=== PATIENT | female | born 1990 | race African-American/Black ===

== ENCOUNTER 2019-11-30 14:31 | Observation (INO) | payer OTHER, SELFPAY ==
--- NOTE | 2019-11-30 14:31 | OBADM ---
This patient, Dotty Ayon, admitted to the OB room OB Post 116 for observation. Patient/family oriented to hospital policies and general routines including ID bracelet, bed and alarms, visiting hours, pain management, procedures, bathroom and other care routines, personal items, smoking policy, room service/diet, and visiting hours. Patient/Family are encouraged to report perceived risks to care and to ask questions if they do not understand what they are told or what they should do.
[2019-11-30 15:08] VITALS: BP 131/70; PULSE 85
[2019-11-30 15:15] VITALS: BP 128/74; PULSE 96
[2019-11-30 15:30] VITALS: TEMP 36.9
[2019-11-30 15:35] VITALS: BMI 27.6
[2019-11-30 15:43] LABS: Add Urine Microscopic? YES; Amorphous Sediment Urine Few; Appearance Urine Cloudy (Clear); Bacteria Urine 3+ /hpf; Bilirubin Urine Negative (Negative); Blood Urine Negative (Negative); Color Urine Yellow (Yellow); Glucose Urine UA Negative (Negative); Ketones Urine Negative (Negative); Leukocyte Esterase Ur Trace LEU/UL (NEGATIVE); Mucus Urine Rare /lpf; Nitrate Urine Negative (Negative); Protein Urine 1+ mg/dL (Negative); RBC Urine 0-2 /hpf (0-2); Squamous Epithelial Cell Urine Many /hpf (Few)
--- NOTE | 2019-11-30 16:00 | PCDIET ---
called Luiza Bueno CNM and notified pt admission for cramping. UA result given, discharge order received with Rx NADER Willett before discharge.
--- NOTE | 2020-01-08 07:47 | PM.OBTRLD ---
OB - Triage/Final Diagnosis Evaluation Laboratory results: Laboratory Tests 11/30/19 15:12 Urine Color Yellow Urine Appearance Cloudy H Urine pH 6.0 Ur Specific [place] 1.020 Urine Protein 1+ H Urine Glucose (UA) Negative Urine Ketones Negative Ur Blood (Man) Negative Urine Nitrate Negative Urine Bilirubin Negative Urine Urobilinogen 4.0 H Ur Leukocyte Esterase Trace H Urine RBC 0-2 Urine WBC 10-15 H Ur Squamous Epith Cells Many H Amorphous Sediment Few H Urine Bacteria 3+ H Urine Mucus Rare Final Diagnosis (1) False labor: Code(s): O47.9 - False labor, unspecified Status: Acute
== END 2019-11-30 16:50 | disposition home or self-care (01) ==
PROVIDERS: Admitting Provider Obstetrics & Gynecology; PCP Internal Medicine Infectious Disease; Visit Provider Obstetrics & Gynecology
DX: R10.9 Unspecified abdominal pain (principal); O26.893 Other specified pregnancy related conditions, third trimester; Z3A.31 31 weeks gestation of pregnancy
CPT/HCPCS: 81001; 87086; 87088; G0378; G0379

== ENCOUNTER 2019-12-14 10:06 | Observation (INO) | payer OTHER, SELFPAY ==
[2019-12-14] VITALS (16 sets, daily range): BP systolic 114–116; BP diastolic 70–73; PULSE 70–122; TEMP 37; O2SAT 83–100; BMI 28.3
--- NOTE | 2019-12-14 10:06 | OBADM ---
This patient, Dotty Ayon, admitted to the OB room OB Post 117 for observation. Patient/family oriented to hospital policies and general routines including ID bracelet, bed and alarms, visiting hours, pain management, procedures, bathroom and other care routines, personal items, smoking policy, room service/diet, and visiting hours. Patient/Family are encouraged to report perceived risks to care and to ask questions if they do not understand what they are told or what they should do.
[2019-12-14 11:13] LABS: Add Urine Microscopic? YES; Appearance Urine Cloudy (Clear); Bacteria Urine 1+ /hpf; Bilirubin Urine Negative (Negative); Blood Urine Negative (Negative); Color Urine Yellow (Yellow); Glucose Urine UA Negative (Negative); Ketones Urine Negative (Negative); Leukocyte Esterase Ur Trace LEU/UL (NEGATIVE); Mucus Urine Rare /lpf; Nitrate Urine Negative (Negative); Protein Urine 1+ mg/dL (Negative); RBC Urine 0-2 /hpf (0-2); Specific Grav Ur 1.018 (1.001-1.035); Squamous Epithelial Cell Urine Many /hpf (Few)
--- NOTE | 2019-12-21 11:23 | P.PNOB_ITS ---
OB - Triage/Final Diagnosis Visit Information Reason for evaluation: threatened labor Evaluation Laboratory results: Laboratory Tests 12/14/19 11:00 Urine Color Yellow Urine Appearance Cloudy H Urine pH 6.0 Ur Specific [place] 1.018 Urine Protein 1+ H Urine Glucose (UA) Negative Urine Ketones Negative Ur Blood (Man) Negative Urine Nitrate Negative Urine Bilirubin Negative Urine Urobilinogen 4.0 H Ur Leukocyte Esterase Trace H Urine RBC 0-2 Urine WBC 7-9 H Ur Squamous Epith Cells Many H Urine Bacteria 1+ H Urine Mucus Rare
== END 2019-12-14 12:35 | disposition home or self-care (01) ==
PROVIDERS: Admitting Provider Obstetrics & Gynecology; PCP Internal Medicine Infectious Disease; Visit Provider Obstetrics & Gynecology
DX: O47.03 False labor before 37 completed weeks of gestation, third trimester (principal); Z3A.33 33 weeks gestation of pregnancy
CPT/HCPCS: 81001; 87086; G0378; G0379

== ENCOUNTER 2020-01-16 11:34 | Outpatient (CLI) | payer OTHER, SELFPAY ==
[2020-01-16 13:00] VITALS: BP 127/75; PULSE 90
== END 2020-01-16 13:00 | disposition home or self-care (01) ==
LOC: ANHOBOP 12:23 → ANHLDR 12:23
PROVIDERS: PCP Internal Medicine Infectious Disease; Visit Provider Obstetrics & Gynecology
DX: O42.90 Premature rupture of membranes, unspecified as to length of time between rupture and onset of labor, unspecified weeks of gestation (principal); Z3A.00 Weeks of gestation of pregnancy not specified
CPT/HCPCS: 59025; 84112; 99199

== ENCOUNTER 2020-01-20 18:08 | Observation (INO) | payer OTHER, SELFPAY ==
[2020-01-20 18:45] VITALS: BP 127/76; PULSE 96
--- NOTE | 2020-01-20 23:41 | OBADM ---
This patient, Dotty Amanda Ayon, admitted to the OB room Labor/Delivery/Recovery 104 for observation. Patient/family oriented to hospital policies and general routines including ID bracelet, bed and alarms, visiting hours, pain management, procedures, bathroom and other care routines, personal items, smoking policy, room service/diet, and visiting hours. Patient/Family are encouraged to report perceived risks to care and to ask questions if they do not understand what they are told or what they should do.
--- NOTE | 2020-02-03 14:44 | PM.OBDSVD ---
DS: Admitting Diagnosis Admitting Diagnosis Admitting Diagnosis: Term Spontaneous onset of labor DS: Discharge Diagnosis Discharge Diagnosis (1) Syphilis affecting , antepartum: Code(s): O98.119 - Syphilis complicating , unspecified trimester Status: Acute (2) GBS carrier: Code(s): Z22.330 - Carrier of Group B streptococcus Status: Acute (3) Spontaneous onset of labor: Status: Acute (4) Term delivered: Code(s): O80 - Encounter for full-term uncomplicated delivery Status: Acute (5) Anemia: Code(s): D64.9 - Anemia, unspecified Status: Acute OB - DS: Summary Hospital Course Time spent discussing smoking cessation with patient: 3 to 10 minutes OB Procedures : Ultrasound OB Procedures Intrapartum: Spontaneous Vag Delivery OB Procedures: : None Peripartum Data Delivery Method: Natural Vaginal Laceration description: Perineal - 2nd Degree Episiotomy description: Midline complications: none 1: Gender: Female Disposition of : home Status at Discharge Functional status at discharge: independent ambulation Overall status at discharge: patient is back to baseline Time Spent with Patient Time attestation: Total time spent providing and/or coordinating discharge services: Time spent: Less than 30 minutes Exam Const: General: comfortable, no acute distress, alert and awake Limitations: no limitations Chest: Breast/axilla inspection: normal inspection of the breasts Resp: Effort & Inspection: normal respiratory effort Cardio: Rate: regular rate GI: GI Palp: Yes Soft to palpation Auscultation: normal bowel sounds : General: Yes bladder normal to inspection Psych: Appearance: grossly normal Mental Status: mental status grossly normal Affect: normal affect Attitude: cooperative Thought content: Yes Normal thought content present Judgement: Good judgement present (Psych) Discharge Plan Discharge Attending physician on discharge: Jared Odonnell Discharging Clinician: Jared Odonnell Anticipated Discharge Date/Time: 01/20/20 18:50 Patient Disposition: Home, Self-Care Activity: may shower, may drive after 2 weeks and as tolerated Diet: as tolerated and regular Wound Care Instructions: follow printed instructions Discharge Instructions: OB ANTEPARTUM DISCHARGE INSTRUCTIONS This information is given to help you properly care for yourself at home after your discharge from the hospital. Follow these instructions until your doctor tells you otherwise. DIET: Eat Three Well Balanced Meals per Day Drink at Least Eight 8-Ounce Glasses of Caffeine-Free Beverages Daily Additional Diet Instructions: ACTIVITY: As Tolerated Additional Activity Instructions: RETURN TO LABOR AND DELIVERY IF YOU HAVE: Any Change In Baby's Normal Movement Pattern Any Leakage of Fluid Contractions 3-5 Minutes Apart with Increasing Intensity Vaginal Bleeding Additional Reasons to Return to Labor and Delivery: Contractions may feel like abdominal pain, tightening, cramping, pressure, back ache, or thigh ache. 24 Hour Urine Collection: Continue 24 hour urine collection until at . When collection is completed, return specimen to the [facility]. See handout for 24 hour urine collection. OTHER INSTRUCTIONS: FOLLOW-UP CARE: Keep Next Scheduled Appointment To see in/on Valuables released to patient or family? N/A Medications from home returned to patient? N/A I Acknowledge Receipt of and Understand the Above Instructions IF YOU HAVE ANY QUESTIONS REGARDING THESE INSTRUCTIONS, PLEASE CALL [phone]. IF PROBLEMS ARISE, CALL YOUR PROVIDER. IF EMERGENCY CARE IS NEEDED, [facility] AVAILABLE 24 HOURS A DAY. Patient Instructions: Perineal Care (GEN) Stand Alone Forms: General
== END 2020-01-20 19:00 | disposition home or self-care (01) ==
PROVIDERS: Admitting Provider Obstetrics & Gynecology; PCP Internal Medicine Infectious Disease; Visit Provider Obstetrics & Gynecology
DX: O98.119 Syphilis complicating pregnancy, unspecified trimester (principal); O99.019 Anemia complicating pregnancy, unspecified trimester; D64.9 Anemia, unspecified; Z22.330 Carrier of Group B streptococcus; Z3A.00 Weeks of gestation of pregnancy not specified
CPT/HCPCS: G0378; G0379

== ENCOUNTER 2020-01-21 22:50 | Inpatient (IN) | payer OTHER, SELFPAY ==
[2020-01-22] VITALS (102 sets, daily range): BP systolic 114–172; BP diastolic 60–120; PULSE 79–120; RESP 18–20; TEMP 36.8–37.7; O2SAT 97–100; BMI 30.2
[2020-01-22] MEDS: AMPICILLIN 2 GM/NS 100 ML 2 GM/100 ML BAG IVPB (02:35)
[2020-01-22] MEDS: LACTATED RINGERS 1,000 ML 125 ML IV CONT (02:37)
[2020-01-22 02:46] LABS: Basophils Percent Auto 0.2 % (0.2-1.2); Eosinophils Percent Auto 0.2 % (0-4.4); Hematocrit 30.9 % (37.0-47.0); Hemoglobin 8.7 g/dL (12.0-15.0); Immature Granulocyte Absolute 0.12 K/mm3 (0.00-0.031); Immature Granulocyte Percent A 1.1 % (0-0.5); Immature Platelet Fraction Pct 9.6 % (0.9-11.2); Lymphocytes Absolute Auto 1.18 K/mm3 (0.9-3.2); Lymphocytes Percent Auto 11.1 % (18.3-44.2); Mean Corpuscular HGB Conc 28.2 g/dl (32-36); Mean Corpuscular Hemoglobin 20.6 pg (26-34); Mean Platelet Volume 11.8 fl (7.4-10.4); Monocytes Absolute Auto 0.6 K/mm3 (0.1-0.6); Monocytes Percent Auto 5.9 % (2.6-8.5); Neutrophils Absolute Auto 8.6 K/mm3 (1.3-6.7); Neutrophils Percent Auto 81.5 % (45.5-73.1); Nucleated Red Blood Cells Perc 0.4 % (0.0-0.2); Platelet Count Result 263 k/mm3 (150-375); Red Blood Count 4.23 M/mm3 (4.2-5.4); Red Cell Distribution Width 19.2 % (11.5-14.5); White Blood Count 10.6 K/mm3 (4.5-10.0)
[2020-01-22 03:02] LABS: Amphetamine Screen Urine Negative (Negative); Barbiturate Screen Urine Negative (Negative); Benzodiazepines Screen Urine Negative (Negative); Cannabinoid Screen Urine Negative (Negative); Cocaine Screen Urine Negative (Negative); Methadone Screen Urine Negative (Negative); Opiate Screen Urine Negative (Negative); Phencyclidine Screen Urine Negative (Negative)
[2020-01-22 03:06] LABS: Hypochromasia 2+ (NORMAL); Large Platelets Present; Platelet Estimate Adequate (Adequate)
--- NOTE | 2020-01-22 03:30 | LDADM ---
This patient, Dotty Ayon, was admitted to Labor/Delivery/Recovery 104 on 01/21/20 at 22:50. Plans for labor, pain management and were discussed with patient. Patient/family oriented to hospital policies and general routines including ID bracelet, bed and alarms, visiting hours, pain management, procedures, bathroom and other care routines, personal items, smoking policy, room service/diet and guest tray routines, security routines, and visiting hours. Patient/Family are encouraged to report perceived risks to care and to ask questions if they do not understand what they are told or what they should do. See OBIX for further documentation.
[2020-01-22] MEDS: AMPICILLIN 1 GM/NS 50 ML 1 GM/50 ML BAG IVPB ×2 (06:37→10:37)
--- NOTE | 2020-01-22 07:01 | HP_ITS ---
DATE OF SERVICE: TIME: 7 a.m. REASON FOR ADMISSION: For induction of labor. HISTORY OF PRESENT ILLNESS: The patient is a 29-year-old female who is 1, para 0 who is currently 39 weeks with first trimester ultrasound being under the care given by Jared Odonnell MD, [facility], [facility] in [place], [place]. otherwise uncomplicated, being admitted for induction of labor with oxytocin. Understands her condition, procedure, and risks and agrees to proceed. PAST MEDICAL HISTORY: ALLERGIES: SHE HAS ALLERGIES TO FLUCONAZOLE. MEDICATIONS: Include famotidine, ferrous gluconate, folic acid, vitamins. VACCINES RECEIVED: Tdap on 11/11/2019, influenza on 04/30/2019 was declined, HPV vaccination series completed. MEDICAL ILLNESSES: Include anemia, abnormal 1-hour glucose, normal 3-hour glucose tolerance test, syphilis was treated and has had negative VDRLs, subchorionic hematoma resolved first trimester, group B strep carrier, bacterial vaginosis and vaginal candidiasis. FAMILY HISTORY: Lymphangitis and hypotensive disease in her father and mother respectively. SOCIAL HISTORY: Nonsmoker. No alcohol. No illicit drug use. 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 Single. Has used marijuana in the past. SURGICAL HISTORY: Negative. MOTHER BABY RN HISTORY: Remarkable for abnormal Pap smear with HPV positive and mild dysplasia in 2014, history of STDs including the syphilis treated, treatment started in July, VDRL negative third trimester. REVIEW OF SYSTEMS: Negative. PHYSICAL EXAMINATION: VITAL SIGNS: Height is 5 feet 5 inches, weight 173, BMI 28.8, blood pressure 122/74, pulse 76, respirations 16, temperature 98. HEAD AND NECK: Normal. AIRWAY: Normal. PULMONARY: Normal. BREASTS: Normal. CARDIOVASCULAR: Normal. ABDOMEN: Gravid, fundus 40 cm. EXTREMITIES: Normal. NEUROLOGIC: Normal. PSYCHIATRIC: Stable. PELVIC: heart tones 151, category 1, cervix is closed, 80%, -2, vertex, soft. LABORATORY DATA: Blood type AB positive. Antibody screen negative. Hemoglobin 11, hematocrit 33, platelets 261,000. VDRL nonreactive. Fluorescent treponemal antibodies positive. Hepatitis B surface antigen negative. HIV negative. Chlamydia, gonorrhea, trichomonas negative. Varicella immune, rubella immune. Hemoglobin electrophoresis normal. HPV negative. Genetic screening negative. Ultrasounds normal. Negative normal. Group B strep recent culture negative. Group B strep positive in urine. Ultrasound negative anomaly screening. Estimated weight 3100 g. IMPRESSION: Intrauterine at 39 weeks, maternal desire for induction. Group B strep carrier. Syphilis, treated; recent VDRL negative, history of human papillomavirus, now negative. PLAN: Admit routine vaginal delivery protocol, section for maternal or indications, induction with Pitocin per protocol. Explained her condition, procedure, and risks. She understands, accepts and agrees to proceed. D I MT: Franca BAIG
--- NOTE | 2020-01-22 07:55 | WPDANESEPPF ---
Anes - Initial Pre Proc Eval Date/Time: 01/22/20 07:55 Surgeon: Jared Odonnell MD Pre Op Diagnosis: Contractions Patient Data Age: 29 Gender: F Height: 1.63 m Weight: 80 kg Last Vital Signs Temp 37.6 C H 01/22/20 06:42 Pulse 93 01/22/20 07:51 BP 125/82 01/22/20 07:51 Pulse Ox 100 01/22/20 07:52 Allergies Allergy/AdvReac Type Severity Reaction Status Date / Time fluconazole Allergy Hives Verified 11/30/19 16:16 Home Medications Medication Instructions Recorded Confirmed Type PNV cmb#95-ferrous fumarate-FA 1 tablet PO DAILY 01/09/20 01/20/20 History [] Laboratory Tests 01/22/20 01/22/20 01/22/20 01:48 02:31 02:31 WBC 10.6 K/mm3 H K/mm3 (4.5-10.0) RBC 4.23 M/mm3 M/mm3 (4.2-5.4) Hgb 8.7 g/dL L g/dL (12.0-15.0) Hct 30.9 % L % (37.0-47.0) MCV 73.0 fl L fl (80-100) MCH 20.6 pg L pg (26-34) MCHC 28.2 g/dl L g/dl (32-36) RDW 19.2 % H % (11.5-14.5) Plt Count 263 k/mm3 k/mm3 (150-375) MPV 11.8 fl H fl (7.4-10.4) Immature Gran % (Auto) 1.1 % H % (0-0.5) Neut % (Auto) 81.5 % H % (45.5-73.1) Lymph % (Auto) 11.1 % L % (18.3-44.2) [facility] [place] % (Auto) 5.9 % % (2.6-8.5) Eos % (Auto) 0.2 % % (0-4.4) Baso % (Auto) 0.2 % % (0.2-1.2) Lymph # (Auto) 1.18 K/mm3 K/mm3 (0.9-3.2) [facility] # (Auto) 0.6 K/mm3 K/mm3 (0.1-0.6) Eos # (Auto) 0.0 K/mm3 K/mm3 (0-0.3) Baso # (Auto) 0.0 K/mm3 K/mm3 (0.0-0.1) Abs Immat Gran (auto) 0.12 K/mm3 H K/mm3 (0.00-0.031) Absolute Neuts (auto) 8.6 K/mm3 H K/mm3 (1.3-6.7) Absolute Nucleated RBC 0.0 K/mm3 K/mm3 (0.0-0.012) Nucleated RBC % 0.4 % H % (0.0-0.2) Platelet Estimate Adequate (Adequate) Large Platelets Present % Immature Plt Fraction 9.6 % % (0.9-11.2) Hypochromasia 2+ (NORMAL) Urine Opiates Screen Urine Methadone Screen Ur Barbiturates Screen Ur Phencyclidine Scrn Ur Amphetamine Screen U Benzodiazepines Scrn Urine Cocaine Screen U Cannabinoids Screen RPR Pending Blood Type AB Positive Antibody Screen Negative 01/22/20 02:31 WBC RBC Hgb Hct MCV MCH MCHC RDW Plt Count MPV Immature Gran % (Auto) Neut % (Auto) Lymph % (Auto) [facility] % (Auto) Eos % (Auto) Baso % (Auto) Lymph # (Auto) [facility] # (Auto) Eos # (Auto) Baso # (Auto) Abs Immat Gran (auto) Absolute Neuts (auto) Absolute Nucleated RBC Nucleated RBC % Platelet Estimate Large Platelets % Immature Plt Fraction Hypochromasia Urine Opiates Screen Negative (Negative) Urine Methadone Screen Negative (Negative) Ur Barbiturates Screen Negative (Negative) Ur Phencyclidine Scrn Negative (Negative) Ur Amphetamine Screen Negative (Negative) U Benzodiazepines Scrn Negative (Negative) Urine Cocaine Screen Negative (Negative) U Cannabinoids Screen Negative (Negative) RPR Blood Type Antibody Screen Patient hx anesthesia problems: none Family hx anesthesia problems: none PMFSH Past Medical History Medical History (Updated 01/22/20 @ 07:56 by Dinesh Montaño MD) Anemia Social History Social History Smoking status: Never smoker Second hand tobacco smoke exposure: No Substance use: never Gender identity (if verbalized by the patient): Female Spiritual care concerns: No Anes - Eval Final PreProcedure Day of Procedure 01/22/20 07:55 Patient weight: obese Heart: regular rate and rhyt
--- NOTE | 2020-01-22 08:51 | PM.OBPNLAB ---
Pain Control Date/time seen: 01/22/20 08:51 Pain control: epidural Pelvic Exam Dilation (cm): 4 Effacement (%): 100 station: -2 Amniotic membrane status: Intact Contractions Monitor mode: External Contraction frequency: 5 Contraction duration: 45 Contraction pattern: Regular Contraction phase: Resting Contraction intensity: Strong/Firm Status status: Category l Assessment and Plan Assessment: active labor Plan: continuous present management
[2020-01-22] MEDS: OXYTOCIN 30 UNITS/NS 500 ML 30 UNITS/500 ML BAG 4 UNITS IV CONT (09:30)
--- NOTE | 2020-01-22 10:28 | PM.OBPNLAB ---
Pain Control Date/time seen: 01/22/20 10:28 Pain control: tolerating well and epidural Pelvic Exam Dilation (cm): 5 Effacement (%): 100 station: -2 Amniotic membrane status: Intact Contractions Monitor mode: External Contraction frequency: 3 Contraction duration: 45 Contraction pattern: Regular Contraction phase: Resting Contraction intensity: Strong/Firm Status status: Category l Assessment and Plan Pitocin rate (mU/min): 1 Assessment: active labor Plan: continuous present management
--- NOTE | 2020-01-22 10:39 | PM.OBPNLAB ---
Pain Control Date/time seen: 01/22/20 10:39 Pain control: epidural Pelvic Exam Dilation (cm): 5 Effacement (%): 100 station: -2 Amniotic membrane status: Ruptured (arom) Contractions Monitor mode: External Contraction frequency: 3 Contraction pattern: Regular Contraction phase: Resting Contraction intensity: Strong/Firm Status status: Category l Assessment and Plan Assessment: active labor Plan: continuous present management and begin patient augmentation
[2020-01-22 10:52] LABS: Rapid Plasma Reagin Non-Reactive (NonReactive)
--- NOTE | 2020-01-22 12:20 | PM.OBPNLAB ---
Pain Control Date/time seen: 01/22/20 11:59 Pain control: tolerating well and epidural Pelvic Exam Dilation (cm): 10 Effacement (%): 100 station: +2 Amniotic membrane status: Ruptured (arom) Contractions Monitor mode: External Contraction frequency: 3 Contraction pattern: Regular Contraction phase: Resting Contraction intensity: Strong/Firm Status status: Category l Assessment and Plan Pitocin rate (mU/min): 1 Assessment: active labor and other (complete stage 1) Plan: continuous present management and other (deliver now)
--- NOTE | 2020-01-22 12:21 | PM.OBPRVD ---
OB - Delivery Note Procedure Delivery date: 01/22/20 Procedure: NSVVD Intrapartal events: None Delivery augmentation: rupture of membranes Delivery monitor: external FHT Route of delivery: Episiotomy description: None Laceration description: None Specimen: Yes (placenta) Estimated blood loss (mL): 150 Anesthesia type: Epidural Disposition: floor Complications: none [place] Baby Date of : 01/22/20 Time of : 12:09 Weeks of gestation at delivery: 39 gender: Female presentation: vertex position: Left Occiput Anterior Placenta delivery description: Spontaneous, Expressed and Normal Configuration cord vessel description: 3 Vessels score one minute: 8 score five minutes: 9
[2020-01-22] MEDS: OXYTOCIN 30 UNITS/NS 500 ML 30 UNITS/500 ML BAG 125 UNITS IV CONT (12:51)
[2020-01-22] MEDS: IBUPROFEN 600 MG TABLET PO (14:00)
--- NOTE | 2020-01-22 14:06 | PM.OBDSVD ---
DS: Discharge Diagnosis Discharge Diagnosis (1) Term delivered: Code(s): O80 - Encounter for full-term uncomplicated delivery Status: Acute (2) Spontaneous onset of labor: Status: Acute (3) GBS carrier: Code(s): Z22.330 - Carrier of Group B streptococcus Status: Acute (4) Syphilis affecting , antepartum: Code(s): O98.119 - Syphilis complicating , unspecified trimester Status: Acute OB - DS: Summary OB Procedures : Ultrasound OB Procedures Intrapartum: Spontaneous Vag Delivery OB Procedures: : None Time Spent with Patient Time attestation: Total time spent providing and/or coordinating discharge services: Exam Const: General: comfortable Limitations: no limitations Chest: Breast/axilla inspection: normal inspection of the breasts Resp: Effort & Inspection: normal respiratory effort Cardio: Rate: regular rate GI: GI Palp: Yes Soft to palpation : General: Yes bladder normal to inspection Psych: Appearance: grossly normal Mental Status: mental status grossly normal Affect: normal affect Attitude: cooperative Thought content: Yes Normal thought content present DS: Data Data Completed and Pending Pending studies at discharge: Pending at discharge 01/22/20 12:14 Surgical [PTH] Routine Labs on day of discharge: Labs from last 24 hours 01/22/20 01/22/20 01/22/20 02:31 02:31 02:31 WBC 10.6 H RBC 4.23 Hgb 8.7 L Hct 30.9 L MCV 73.0 L MCH 20.6 L MCHC 28.2 L RDW 19.2 H Plt Count 263 MPV 11.8 H Immature Gran % (Auto) 1.1 H Neut % (Auto) 81.5 H Lymph % (Auto) 11.1 L [place] % (Auto) 5.9 Eos % (Auto) 0.2 Baso % (Auto) 0.2 Lymph # (Auto) 1.18 [place] # (Auto) 0.6 Eos # (Auto) 0.0 Baso # (Auto) 0.0 Abs Immat Gran (auto) 0.12 H Absolute Neuts (auto) 8.6 H Absolute Nucleated RBC 0.0 Nucleated RBC % 0.4 H Platelet Estimate Adequate Large Platelets Present % Immature Plt Fraction 9.6 Hypochromasia 2+ Urine Opiates Screen Negative Urine Methadone Screen Negative Ur Barbiturates Screen Negative Ur Phencyclidine Scrn Negative Ur Amphetamine Screen Negative U Benzodiazepines Scrn Negative Urine Cocaine Screen Negative U Cannabinoids Screen Negative RPR Blood Type AB Positive Antibody Screen Negative 01/22/20 01:48 WBC RBC Hgb Hct MCV MCH MCHC RDW Plt Count MPV Immature Gran % (Auto) Neut % (Auto) Lymph % (Auto) [place] % (Auto) Eos % (Auto) Baso % (Auto) Lymph # (Auto) [place] # (Auto) Eos # (Auto) Baso # (Auto) Abs Immat Gran (auto) Absolute Neuts (auto) Absolute Nucleated RBC Nucleated RBC % Platelet Estimate Large Platelets % Immature Plt Fraction Hypochromasia Urine Opiates Screen Urine Methadone Screen Ur Barbiturates Screen Ur Phencyclidine Scrn Ur Amphetamine Screen U Benzodiazepines Scrn Urine Cocaine Screen U Cannabinoids Screen RPR Non-reactive Blood Type Antibody Screen Discharge Plan Discharge Attending physician on discharge: Ronna Wick Consulting providers: Dinesh Montaño Discharging Clinician: Ronna Wick Anticipated Discharge Date/Time: 01/23/20 11:29 Patient Disposition: Home, Self-Care Activity: pelvic rest Diet: as tolerated and regular Discharge Instructions: Education: Mom and Baby Guide Given to: Mother Follow-Up: Call your delivering provider's office for an appointment to be seen. Mom and baby should come to the [facility] for the follow-up appointment. Appointment Date/Time: January 25, 2020 at 8:00 am What to expect at your follow-up visit: Physical Assessment Call [phone] if you are unable to keep your appointment time. BREAST CARE: 1. Wear a snug supportive bra. 2. For engorgement discomfort: Bottle Feeding: A. May apply ice p
[2020-01-22 14:33] LABS: Alanine Aminotransferase 11 U/L (4-35); Albumin Level 3.1 g/dL (3.5-5.1); Alkaline Phosphatase 148 U/L (38-126); Anion Gap 9.5 mmol/L (7-16); Aspartate Amino Transferase 22 U/L (14-36); Bilirubin,Total 0.7 mg/dL (0.2-1.3); Blood Urea Nitrogen 4 mg/dL (7-17); Calcium 8.4 mg/dL (8.4-10.2); Carbon Dioxide 21 mmol/L (22-30); Chloride 105 mmol/L (98-107); Estimated CRCL calculation 143 ml/min; Estimated Glomerular Filt Rate > 60; Glucose 102 mg/dL (65-105); Potassium 3.5 mmol/L (3.4-5.0); Sodium 132 mmol/L (137-145); Uric Acid 4.1 mg/dL (2.5-7.5)
--- NOTE | 2020-01-22 15:49 | OBPPTRN ---
Patient transferred to post room # 278 via wheelchair. Oriented to unit, room, information board, rooming in, admission packet and security measures. Patient verbalizes understanding.
[2020-01-22] MEDS: ACETAMINOPHEN 325 MG TABLET 650 MG PO (17:09)
[2020-01-22] MEDS: DOCUSATE SODIUM 100 MG CAPSULE PO (17:13)
[2020-01-22] MEDS: POLYSACCHARIDE IRON COMPLEX 150 MG CAPSULE PO (17:13)
[2020-01-23] MEDS: IBUPROFEN 600 MG TABLET PO ×2 (03:32→09:18)
[2020-01-23 05:12] LABS: Hematocrit 28.7 % (37.0-47.0)
[2020-01-23 07:50] VITALS: BP 114/71; PULSE 79; RESP 18; TEMP 37.1
--- NOTE | 2020-01-23 08:54 | OP_ITS ---
DATE OF PROCEDURE: 01/22/2020 PREOPERATIVE DIAGNOSIS: Intrauterine at 39 and 3/7th weeks, spontaneous onset of labor, GBS positive, history of anemia, syphilis affecting with normal negative VDRL. POSTOPERATIVE DIAGNOSIS: Intrauterine at 39 and 3/7th weeks, spontaneous onset of labor, GBS positive, history of anemia, syphilis affecting with normal negative VDRL, delivered viable female infant. ANESTHESIA: Epidural. BLOOD LOSS: 100. FLUIDS: 1000. No [place] removed prior to delivery. COUNTS: Correct. COMPLICATIONS: None. SPECIMEN TO PATHOLOGY: Placenta, cord gases. FINDINGS: Viable female was delivered at 12:09. Apgars 8 and 9, weight 7 pounds 12 ounce. Placenta intact 3-vessel cord at 12:14. DESCRIPTION OF PROCEDURE: The patient was placed in stirrups, had a normal spontaneous vertex vaginal delivery over an intact perineum. was delivered without difficulty, placed through the maternal abdomen. Cord was clamped and cut. Spontaneous respirations and cry, normal transition. Cord gases and cord blood obtained. Placenta delivered, intact 3-vessel cord with uterus komal well. Pitocin given intravenously. No cuts, tears, or lacerations. The patient tolerated the procedure well. D I MT: Franca
[2020-01-23] MEDS: DOCUSATE SODIUM 100 MG CAPSULE PO (09:17)
[2020-01-23] MEDS: ACETAMINOPHEN 325 MG TABLET 650 MG PO (09:18)
[2020-01-23] MEDS: POLYSACCHARIDE IRON COMPLEX 150 MG CAPSULE PO (09:18)
--- NOTE | 2020-01-23 12:33 | PM.OBPNVD ---
OB - PN: Subj Subjective Date/time seen: 01/23/20 12:33 PPD#1 Pt reports doing well. Her pain is well controlled with the PO pain meds. She is tolerating regular diet w/o N/V. She has voided spontaneously. She is passings flatus. She is ambulating w/o s/sx of anemia. Her bleeding is lessening. She is bottle feeding. She would then like to be discharged home today. No CP, SOB, fever, chills, GRIFFIN, N/V, abdominal pain, dizziness, palpitations. OB - PN: Obj Data Labs CBC & Chem 7: 01/23/20 03:52 01/22/20 14:12 Labs: Laboratory Results - last 24 hr 01/22/20 01/23/20 14:12 03:52 Hgb 8.0 L Hct 28.7 L Sodium 132 L Potassium 3.5 Chloride 105 Carbon Dioxide 21 L Anion Gap 9.5 BUN 4 L Creatinine 0.50 L Estim Creat Clear Calc 143 Estimated GFR > 60 Glucose 102 Uric Acid 4.1 Calcium 8.4 Total Bilirubin 0.7 AST 22 ALT 11 Alkaline Phosphatase 148 H Total Protein 6.0 L Albumin 3.1 L OB - PN A/P Assessment and Plan (1) Term delivered: Code(s): O80 - Encounter for full-term uncomplicated delivery Status: Acute Plan day: 1 Plan: routine care, discharge home (ER return precautions discussed in detail.) and follow up 6 weeks (with Dr. Odonnell) Time Spent With Patient Time: Total time spent is greater than 50% in coordination of care (as documented) at patient's floor/unit and/or counseling patient: Review of Systems Review of Systems: All systems reviewed & are unremarkable except as noted in HPI and below (HPI) Exam Const: General: comfortable, no acute distress, alert and awake Orientation/consciousness: patient oriented x3 Resp: Effort & Inspection: normal respiratory effort Auscultation: clear to auscultation bilaterally Cardio: Rate: regular rate GI: Auscultation: normal bowel sounds Other: mildly distended, soft, nontender : Other: fundus firm at umbilicus; normal lochia Psych: Appearance: grossly normal Affect: normal affect Attitude: cooperative Judgement: Good judgement present (Psych)
--- NOTE | 2020-01-23 14:26 | WPDANLDPN2 ---
Anes-Prog Note L&D Date/Time: 01/23/20 14:26 Comfortable throughout: labor and delivery Neuraxial method: epidural Epidural/Spinal procedure site: clean & non-tender Neuro status: Neuro function grossly intact. Cardiovascular status: normal Respiratory status: normal Airway patency: baseline Mental status: baseline Post-Op hydration status: normal Vital Signs: Last Vital Signs Temp 37.1 C 01/23/20 07:50 Pulse 79 01/23/20 07:50 Resp 18 01/23/20 07:50 BP 114/71 01/23/20 07:50 Pulse Ox 99 01/22/20 21:13 Pain score (VAS): 0/10. Patient resting in bed at time of assessment appears comfortable. Post-procedural complaints: none Patient feedback: Patient satisfied with anesthetic care.
[2020-01-25 08:15] VITALS: BP 134/76; PULSE 67; RESP 14; TEMP 37.1; O2SAT 100
== END 2020-01-23 14:27 | disposition home or self-care (01) | DRG 560 ==
LOC: ANHLDR 01-22 02:40 → ANHOB2 01-23 11:32 → ANHLDR 01-25 20:10 → ANHOB2 02-10 10:22
PROVIDERS: Admitting Provider Obstetrics & Gynecology; PCP Internal Medicine Infectious Disease; Visit Provider Obstetrics & Gynecology
DX: O99.824 Streptococcus B carrier state complicating childbirth (principal); O98.12 Syphilis complicating childbirth; A53.9 Syphilis, unspecified; Z3A.39 39 weeks gestation of pregnancy; Z37.0 Single live birth
CPT/HCPCS: 36415; 80053; 80307; 84550; 85014; 85018; 85025; 85055; 86592; 86850; 86900; 86901; 88307; 99199; A9270; J0290; J2590; J2795; J7120

== ENCOUNTER 2020-09-02 14:05 | Emergency (ER) | payer OTHER, SELFPAY ==
--- NOTE | 2020-09-02 14:14 | ED.SKABFB ---
HPI - Skin/Abscess/Foreign Bdy General Chief complaint: Allergic Reaction Stated complaint: rash, possible allergic reaction Time Seen by Provider: 09/02/20 14:13 History of Present Illness HPI narrative: Pruritic rash to chest and face since this morning. She starte augmentin yesterday for what sounds like GBS. She just recently found out she was . She was previously listed as having a penicillin allergy, but came back nonreactive on recent test. No lip or tongue swelling. No SOB. Related Data Home Medications Medication Instructions Recorded Confirmed PNV cmb#95-ferrous fumarate-FA 1 tablet PO DAILY 01/09/20 01/20/20 [] Allergies Allergy/AdvReac Type Severity Reaction Status Date / Time amoxicillin Allergy Itching Verified 09/02/20 14:23 fluconazole Allergy Hives Verified 09/02/20 14:23 Review of Systems Review of Systems: All systems reviewed & are unremarkable except as noted in HPI and below Constitutional: Constitutional: Denies fever(s) and Denies weakness Cardiovascular: Cardiovascular: Denies chest pain Respiratory: Respiratory: Reports dyspnea PMFSH Past Medical History Medical History Anemia Family History Family History Mother Hypertension Father Lymphoma Social History Social History Smoking status: Never smoker Second hand tobacco smoke exposure: No Substance use: never Gender identity (if verbalized by the patient): Female Spiritual care concerns: No Exam Const: General: healthy appearing, no acute distress and alert Orientation/consciousness: patient oriented x3 HENMT: Mouth: Yes Normal oral and palatal mucosa present Throat: posterior oropharynx normal Resp: Effort & Inspection: normal respiratory effort Auscultation: clear to auscultation bilaterally Cardio: Rate: regular rate Rhythm: regular rhythm Skin: Other: papular rash to chin, neck and chest Neuro: General: patient oriented x3 and CN's II-XI intact bilaterally Speech: normal speech Extrem: General: normal to inspection Course Vital Signs Vital signs: Vital Signs Temperature 37.2 C 09/02/20 14:15 Pulse Rate 78 09/02/20 14:15 Respiratory Rate 16 09/02/20 14:15 Blood Pressure 126/65 09/02/20 14:15 Pulse Oximetry 100 09/02/20 14:15 Temperature 37.2 C 09/02/20 14:15 Pulse Rate 72 09/02/20 14:40 Respiratory Rate 12 09/02/20 14:40 Blood Pressure 121/66 09/02/20 14:40 Pulse Oximetry 99 09/02/20 14:40 MDM - Skin/Abscess/Foreign Bdy MDM Narrative Medical decision making narrative: She seems to be having a mild allergic reaction to augmentin. Dr. Odonnell requested that I changed her to a z-pack Discharge Plan Discharge Clinical Impression: Allergic reaction to amoxicillin/clavulanic acid Patient Disposition: Home, Self-Care Condition: Stable Instructions: Antibiotic Medication Allergy (ED) Prescriptions: New azithromycin 250 mg tablet See Rx Instructions .ROUTE .COMPLEX Qty: 6 RF: 0 prednisone 20 mg tablet 40 mg PO DAILY 3 Days Qty: 6 RF: 0 No Action PNV cmb#95-ferrous fumarate-FA [] 28 mg iron- 800 mcg Tablet 1 tablet PO DAILY RF: 0 acetaminophen [Mapap (acetaminophen)] 325 mg Tablet 650 mg PO Q6H PRN (Reason: Mild Pain (1-3) Or Headache) 10 Days Qty: 30 RF: 0 Dermoplast (with menthol) 20-0.5 % Aerosol 1 spray topical PRN PRN (Reason: Perineal Discomfort) 5 Days Qty: 2 RF: 0 dibucaine 1 % Ointment 1 applic topical PRN PRN (Reason: Hemorrhoids) 5 Days Qty: 2 RF: 0 docusate sodium 100 mg Capsule 100 mg PO BID PRN (Reason: Constipation) 30 Days Qty: 60 RF: 0 ibuprofen 600 mg Tablet 600 mg PO Q6H PRN (Reason: Cramping) 10 Days Qty: 40 RF: 0 Preparation H (Witch Marcia) 50 % Pads, Medicated
[2020-09-02 14:15] VITALS: BP 126/65; PULSE 78; RESP 16; TEMP 37.2; O2SAT 100
[2020-09-02] MEDS: predniSONE 20 MG TABLET 60 MG PO (14:30)
[2020-09-02] MEDS: diphenhydrAMINE HCl CAP 25 MG CAPSULE PO (14:30)
[2020-09-02 14:40] VITALS: BP 121/66; PULSE 72; RESP 12; O2SAT 99
== END 2020-09-02 14:41 | disposition home or self-care (01) ==
PROVIDERS: Emergency Provider Emergency Medicine; PCP Internal Medicine Infectious Disease
DX: O99.711 Diseases of the skin and subcutaneous tissue complicating pregnancy, first trimester (principal); L27.0 Generalized skin eruption due to drugs and medicaments taken internally; O9A.211 Injury, poisoning and certain other consequences of external causes complicating pregnancy, first trimester; T36.0X5A Adverse effect of penicillins, initial encounter; Z3A.00 Weeks of gestation of pregnancy not specified; Z86.2 Personal history of diseases of the blood and blood-forming organs and certain disorders involving the immune mechanism
CPT/HCPCS: 99283; A9270; J7512

== ENCOUNTER 2020-09-14 09:52 | Outpatient (CLI) | payer OTHER, SELFPAY ==
--- NOTE | ~2020-09-14 | US_ITS ---
EXAMINATION: US OB <= 14 weeks fetus DATE: 09/14/2020 10:23 INDICATION: Routine care TECHNIQUE: Real-time pelvic ultrasound utilizing both a transvaginal and transabdominal probe was pe rformed. The interpreting radiologist was not present for the study. COMPARISON: None. FINDINGS: The uterus measures 13.0 x 9.9 x 8.2 cm. There is an intrauterine gestational sac. A yolk sac and fe bing pole are identified. The crown rump length measures 5.3 cm, which correlates with an estimated ge stational age of 12 weeks and 0 days. heart motion is identified measuring 165 beats per minute (bpm) by M-mode Doppler. 1.4 x 1.0 x 1.7 cm anechoic region along the left superior margin of the ge stational sac consistent with small subchorionic hematoma. The right ovary measures 2.3 x 1.4 x 1.8 cm. The left ovary measures 3.2 x 1.3 x 1.4 cm. Vascular michael w identified in both ovaries on color Doppler. There is no free fluid in the pelvis. IMPRESSION: 1. Single living fetus with heart rate of 165 bpm. 2. Gestational age by ultrasound of 12 weeks 0 day(s) +/- 1 week and 1 day with ultrasound estimated date of delivery ([facility]) of 03/29/2021. 3. Small subchorionic hematoma. Reviewed, dictated and finalized at location [facility]. IMPRESSION: 1. Single living fetus with heart rate of 165 bpm. 2. Gestational age by ultrasound of 12 weeks 0 day(s) +/- 1 week and 1 day wit h ultrasound estimated date of delivery ([facility]) of 03/29/2021. 3. Small subchorionic hematoma.
== END 2020-09-14 09:53 | disposition home or self-care (01) ==
PROVIDERS: PCP Internal Medicine Infectious Disease; Visit Provider Obstetrics & Gynecology
DX: Z34.91 Encounter for supervision of normal pregnancy, unspecified, first trimester (principal); Z3A.12 12 weeks gestation of pregnancy
CPT/HCPCS: 76801

== ENCOUNTER 2020-10-14 14:18 | Outpatient (CLI) | payer OTHER, SELFPAY ==
--- NOTE | ~2020-10-14 | US_ITS ---
US OB limited DATE: 10/14/2020 14:58 INDICATION: Subchorionic hematoma TECHNIQUE: Real-time imaging and Doppler analysis COMPARISON: 09/14/2020 obstetrical ultrasound FINDINGS: Live crandall intrauterine gestation, fetus in longitudinal lie, breech presentation. Feta l heart rate of 152 bpm. The uterus is posterofundal. There is a subjectively normal amount of amniotic fluid. No retroplacental hematoma or subchorionic hematoma is detected. IMPRESSION: No retroplacental or subchorionic hemorrhage is noted Reviewed, dictated and finalized at Location [facility]. Reviewed, dictated and finalized at location [facility].
== END 2020-10-14 14:19 | disposition home or self-care (01) ==
PROVIDERS: PCP Internal Medicine Infectious Disease; Visit Provider Obstetrics & Gynecology
DX: O41.8X99 Other specified disorders of amniotic fluid and membranes, unspecified trimester, other fetus (principal); Z3A.00 Weeks of gestation of pregnancy not specified
CPT/HCPCS: 76815

== ENCOUNTER 2020-10-31 17:31 | Emergency (ER) | payer OTHER, SELFPAY ==
[2020-10-31 18:09] VITALS: BP 121/72; PULSE 77; RESP 17; TEMP 36.6; O2SAT 100
--- NOTE | 2020-10-31 18:27 | ECG_ITS ---
Measurements Intervals [place] Rate: 64 P: 68 VT: 220 QRS: 32 QRSD: 94 T: 14 QT: 402 QTc: 417 Interpretive Statements SINUS RHYTHM WITH FIRST DEGREE AV BLOCK BORDERLINE ST-T WAVE ABNORMALITY- INFERIOR LEADS BASELINE WANDER- I, II, III, AVR, AVL, AVF, V3 ABNORMAL ECG Electronically Signed On 10-31-2020 20:38:19 CDT by Reginaldo Sherman D.O.
[2020-10-31] MEDS: SODIUM CHLORIDE 0.9% IV 1,000 ML 999 ML IV CONT (18:40)
[2020-10-31 18:49] LABS: Basophils Percent Auto 0.2 % (0.2-1.2); Eosinophils Absolute Auto 0.1 K/mm3 (0-0.3); Eosinophils Percent Auto 0.8 % (0-4.4); Hemoglobin 10.4 g/dL (12.0-15.0); Immature Granulocyte Absolute 0.05 K/mm3 (0.00-0.031); Immature Granulocyte Percent A 0.5 % (0-0.5); Lymphocytes Absolute Auto 1.85 K/mm3 (0.9-3.2); Lymphocytes Percent Auto 20.1 % (18.3-44.2); Mean Corpuscular HGB Conc 29.7 g/dl (32-36); Mean Corpuscular Volume 77.4 fl (80-100); Mean Platelet Volume 12.2 fl (7.4-10.4); Monocytes Absolute Auto 0.5 K/mm3 (0.1-0.6); Monocytes Percent Auto 5.2 % (2.6-8.5); Neutrophils Absolute Auto 6.7 K/mm3 (1.3-6.7); Neutrophils Percent Auto 73.2 % (45.5-73.1); Platelet Count Result 270 k/mm3 (150-375); Red Blood Count 4.52 M/mm3 (4.2-5.4); White Blood Count 9.2 K/mm3 (4.5-10.0)
--- NOTE | 2020-10-31 19:00 | ED.GENADULT ---
HPI - General Adult General Chief complaint: Dizziness Stated complaint: dizzy/light headed - 18 weeks preg Time Seen by Provider: 10/31/20 18:26 Source: patient History of Present Illness HPI narrative: Patient is a 30 y/o female complaining of mild dizziness since 1:00 PM today. She describes her dizziness as a light headed sensation. She does not feel room spinning. There is no alleviating or exacerbating factor. She denies passing out or having headache. She has no focal weakness or numbness. She is able to ambulate without difficulty. Of note, she is about 18 week prenant. Related Data Home Medications Medication Instructions Recorded Confirmed PNV cmb#95-ferrous fumarate-FA 1 tablet PO DAILY 01/09/20 01/20/20 [] Allergies Allergy/AdvReac Type Severity Reaction Status Date / Time amoxicillin Allergy Itching Verified 09/02/20 14:23 fluconazole Allergy Hives Verified 09/02/20 14:23 Review of Systems Constitutional: Constitutional: Denies chills, Denies fever(s), Denies headache(s) and Denies weakness Eyes: Eyes: Denies blurry vision ENT: Denies headache(s) and Denies neck pain Cardiovascular: Cardiovascular: Denies chest pain and Denies dyspnea Respiratory: Respiratory: Denies cough and Denies dyspnea Gastrointestinal: Gastrointestinal: Denies abdominal pain, Denies diarrhea, Denies nausea and Denies vomiting Genitourinary: Genitourinary: Denies hematuria and Denies dysuria Musculoskeletal: Musculoskeletal: Denies back pain and Denies neck pain Neurologic: Reports dizziness, Denies headache(s) and Denies weakness [facility] Past Medical History Medical History Anemia Family History Family History Mother Hypertension Father Lymphoma Social History Social History Smoking status: Never smoker Second hand tobacco smoke exposure: No Substance use: never Gender identity (if verbalized by the patient): Female Spiritual care concerns: No Exam Const: General: no acute distress and well developed Orientation/consciousness: oriented to person, oriented to place, oriented to time and patient oriented x3 HENMT: Head: normocephalic Ears: external ears normal General nose exam: Normal external nose present Eyes: General: appearance normal, both eyes and all related structures Conjunctivae: conjunctivae normal Neck: Neck: normal visual inspection and full ROM Chest: Chest palpation & inspection: normal inspection of the chest and no tenderness Resp: Effort & Inspection: normal respiratory effort Auscultation: clear to auscultation bilaterally Cardio: Rate: regular rate Rhythm: regular rhythm GI: GI Palp: No abdominal tenderness and Yes Soft to palpation Skin: General skin exam: normal color and turgor normal Neuro: General: oriented to person, oriented to place, oriented to time and patient oriented x3 Cranial nerves: Yes CN's II-XII intact bilaterally Cognition (Neuro): normal cognition Speech: normal speech Motor exam (neuro): 5/5 motor strength present throughout Sensory Exam: normal sensation Coordination: [id number] test normal and [id number] test normal Extrem: General: normal to inspection, full ROM and no pedal edema Psych: Appearance: grossly normal Mental Status: mental status grossly normal Affect: normal affect Course Vital Signs Vital signs: Vital Signs Temperature 36.6 C 10/31/20 18:09 Pulse Rate 77 10/31/20 18:09 Respiratory Rate 17 10/31/20 18:09 Blood Pressure 121/72 10/31/20 18:09 Pulse Oximetry 100 10/31/20 18:09 Temperature 36.6 C 10/31/20 18:09 Pulse Rate 64 10/31/20 22:18 Respiratory Rate 16 10/31/20 22:18 Blood Pressure 126/69 10/31/20 22:18 Pulse Oximetry 98 10/31/20 22:18 Medical Decision Making Vital Signs Vital Signs: V
[2020-10-31 19:02] LABS: Alanine Aminotransferase 10 U/L (4-35); Albumin Level 4.2 g/dL (3.5-5.1); Alkaline Phosphatase 80 U/L (38-126); Anion Gap 7 mmol/L (8-16); Aspartate Amino Transferase 21 U/L (14-36); Bilirubin,Total 0.3 mg/dL (0.2-1.3); Blood Urea Nitrogen 8 mg/dL (7-17); Calcium 9.1 mg/dL (8.4-10.2); Carbon Dioxide 23 mmol/L (22-30); Chloride 106 mmol/L (98-107); Estimated CRCL calculation 106 ml/min; Estimated Glomerular Filt Rate > 60; Glucose 84 mg/dL (65-105); Potassium 3.6 mmol/L (3.4-5.0); Sodium 136 mmol/L (137-145)
[2020-10-31 19:19] LABS: Platelet Estimate Adequate (Adequate)
[2020-10-31 19:20] LABS: Anisocytosis 2+ (NORMAL); Hypochromasia 1+ (NORMAL)
[2020-10-31 20:25] LABS: Add Urine Microscopic? YES; Appearance Urine Cloudy (Clear); Bacteria Urine Trace /hpf; Bilirubin Urine Negative (Negative); Blood Urine Negative (Negative); Color Urine Yellow (Yellow); Glucose Urine UA Negative (Negative); Ketones Urine Negative (Negative); Leukocyte Esterase Ur Trace LEU/UL (Negative); Nitrate Urine Negative (Negative); Protein Urine 1+ mg/dL (Negative); RBC Urine 0-2 /hpf (0-2); Specific Grav Ur 1.018 (1.001-1.035); Squamous Epithelial Cell Urine Moderate /hpf (Few); WBC Urine 0-3 /hpf
[2020-10-31 20:35] VITALS: BP 116/65; PULSE 68; RESP 16; O2SAT 100
[2020-10-31 20:43] VITALS: PULSE 64
[2020-10-31] MEDS: METOCLOPRAMIDE HCL INJ 10 MG/2 ML VIAL IV PUSH (22:02)
[2020-10-31 22:18] VITALS: BP 126/69; PULSE 64; RESP 16; O2SAT 98
== END 2020-10-31 22:19 | disposition home or self-care (01) ==
PROVIDERS: Emergency Provider Emergency Medicine; PCP Internal Medicine Infectious Disease
DX: O26.892 Other specified pregnancy related conditions, second trimester (principal); R42 Dizziness and giddiness; R11.0 Nausea; O99.012 Anemia complicating pregnancy, second trimester; D64.9 Anemia, unspecified; O99.412 Diseases of the circulatory system complicating pregnancy, second trimester; I44.0 Atrioventricular block, first degree; R94.31 Abnormal electrocardiogram [ECG] [EKG]; Z3A.18 18 weeks gestation of pregnancy
CPT/HCPCS: 36415; 80053; 81001; 85025; 93005; 96361; 96374; 99284; J2765; J7030

== ENCOUNTER 2020-11-11 13:07 | Outpatient (CLI) | payer OTHER, SELFPAY ==
--- NOTE | ~2020-11-11 | US_ITS ---
EXAMINATION: US OB limited EXAM DATE: 11/11/2020 13:43 INDICATION: Routine care. 2nd trimester. TECHNIQUE: Pelvic obstetrical transabdominal sonogram was performed by a technologist. There are mu ltiple grayscale and Doppler images available for interpretation. Comparison is made to prior examina tion from 10/14/2020. FINDINGS: There is a single fetus identified in breech presentation with a heart rate of 144 beats pe r minute. The placenta is located in the posterior position. There is no sonographic evidence of ret roplacental hemorrhage identified. The amniotic fluid index is 13.2 centimeters, which is normal. BIOMETRIC DATA: Biparietal diameter (BPD): 4.7 cm ----------------> 20 weeks 1 day. Head circumference (HC): 17.6 cm ----------------> 20 weeks 0 days. Abdominal circumference (AC): 14.8 cm ----------> 20 weeks 1 day. Femur length (FL): 3.2 cm --------------------------> 19 weeks 6 days. These measurements are concordant. HC/AC ratio is 1.18 (The 5th -- 95th percentile range is 1.09-1.25. Estimated weight is 326 g +/- 49 g. This is the 24th percentile when the currently reported cl inical gestation age 20 weeks 3 days, clinical estimated date of delivery ([facility]) 03/28/2021 is used . estimated gestational age based on measurements from this exam is 20 weeks 0 days, with an es timated date of delivery ([facility]) 03/31. IMPRESSION: 1. Single fetus in breech presentation with heart rate 144 beats per minute. 2. Estimated weight of 326 grams, 24th percentile using the currently reported clinical gestat ion age of 20 weeks 3 days, [facility]) 03/28. Reviewed, dictated and finalized at location A. IMPRESSION: 1. Single fetus in breech presentation with heart rate 144 beats per minute. 2. Estimated weight of 326 grams, 24th percentile using the currently re ported clinical gestation age of 20 weeks 3 days, [facility]) 03/28.
== END 2020-11-11 13:08 | disposition home or self-care (01) ==
PROVIDERS: PCP Internal Medicine Infectious Disease; Visit Provider Obstetrics & Gynecology
DX: Z34.92 Encounter for supervision of normal pregnancy, unspecified, second trimester (principal); Z3A.20 20 weeks gestation of pregnancy
CPT/HCPCS: 76815

== ENCOUNTER 2021-03-21 17:31 | Observation (INO) | payer OTHER, SELFPAY ==
[2021-03-21 18:59] VITALS: BMI 28.3
--- NOTE | 2021-03-21 18:59 | LDADM ---
This patient, Dotty Ayon, was admitted to Labor/Delivery/Recovery 119 on 03/21/21 at 17:31. Plans for labor, pain management and were discussed with patient. Patient/family oriented to hospital policies and general routines including ID bracelet, bed and alarms, visiting hours, pain management, procedures, bathroom and other care routines, personal items, smoking policy, room service/diet and guest tray routines, security routines, and visiting hours. Patient/Family are encouraged to report perceived risks to care and to ask questions if they do not understand what they are told or what they should do. See OBIX for further documentation.
--- NOTE | 2021-03-21 22:57 | PC.NURSE ---
1819- cervical exam- closed/posterior 1824- Paged Dr. Nance via answering service 1842- paged Dr. Nance via answering service 1852- Dr. Nance returned page. informed of pt coming in c/o contractions. pt scheduled for primary on Saturday with Dr. Odonnell. cervical exam reviewed. tracing reviewed. irritability noted on monitor with some contractions. orders received to d/c pt home with instructions on when to return to L&D.
--- NOTE | 2021-03-25 09:23 | PM.OBTRLD ---
OB - Triage/Final Diagnosis Visit Information Reason for evaluation: threatened labor Comments/Additional reasons for admission: I have assessed the risk for this patient, Dotty Ayon, and determined that she would benefit from observation care.
== END 2021-03-21 19:10 | disposition home or self-care (01) ==
PROVIDERS: Admitting Provider Obstetrics & Gynecology; PCP Internal Medicine Infectious Disease; Visit Provider Obstetrics & Gynecology
DX: O47.1 False labor at or after 37 completed weeks of gestation (principal); Z3A.39 39 weeks gestation of pregnancy
CPT/HCPCS: G0378; G0379

== ENCOUNTER 2021-03-23 10:44 | Outpatient (RCR) | payer OTHER, SELFPAY ==
[2021-03-16 11:31] VITALS: BP 114/66; PULSE 78
--- NOTE | ~2021-03-23 | US_ITS ---
EXAMINATION: US OB BPP wo non-stress DATE: 03/16/2021 11:28 INDICATION: Small for gestational age during third trimester TECHNIQUE: Real-time pelvic ultrasound was performed. The interpreting radiologist was not present fo r the study. COMPARISON: None. FINDINGS: There is a single living fetus in breech presentation. The placenta is posterior. heart rate is 136 beats per minute (bpm). Biophysical profile performed by the technologist: breathing (30 sec sustained breathing in 30 minutes): 2 out of 2 movement (3 gross body movements in 30 minutes): 2 out of 2 tone (one episode of dcejyci-ymdhohppq-yyfqbro limb movement): 2 out of 2 Amniotic fluid pocket (2 cm): 2 out of 2 Total score: 8 out of 8 IMPRESSION: 1. Single living fetus in breech presentation. 2. Biophysical profile 8 out of 8. Reviewed, dictated and finalized at location A.
--- NOTE | ~2021-03-23 | US_ITS ---
EXAMINATION: US OB BPP wo non-stress EXAM DATE: 03/23/2021 11:45 INDICATION: IUGR. 3rd trimester. TECHNIQUE: Pelvic obstetrical transabdominal sonogram was performed by a technologist. There are mu ltiple grayscale and Doppler images available for interpretation. Comparison is made to prior examina tion from 03/16/2021. FINDINGS: There is a single fetus identified in breech presentation with a heart rate of 152 beats pe r minute. The placenta is located in the fundal position. There is no sonographic evidence of retrop lacental hemorrhage identified. BIOPHYSICAL PROFILE (performed by the technologist) breathing (30 sec sustained breathing in 30 minutes): 2 out of 2 movement (3 gross body movements in 30 minutes): 2 out of 2 tone (one episode of trhfztp-vkiajrvqj-wmsvfxi limb movement): 2 out of 2 Amniotic fluid pocket (2 cm): 2 out of 2 Total score: 8 out of 8 IMPRESSION: 1. Single fetus in breech presentation with heart rate of 152 bpm. 2. Normal biophysical profile score of 8 out of 8. Reviewed, dictated and finalized at location B.
[2021-03-23 11:45] VITALS: BP 121/74; PULSE 90
== END 2021-04-03 07:36 | disposition home or self-care (01) ==
LOC: ANHOBOP 10:44
PROVIDERS: PCP Internal Medicine Infectious Disease; Visit Provider Obstetrics & Gynecology
DX: O36.5930 Maternal care for other known or suspected poor fetal growth, third trimester, not applicable or unspecified (principal); Z3A.38 38 weeks gestation of pregnancy; Z3A.39 39 weeks gestation of pregnancy
CPT/HCPCS: 59025; 76819

== ENCOUNTER 2021-03-24 07:02 | Inpatient (IN) | payer OTHER, SELFPAY ==
--- NOTE | 2021-03-23 17:36 | PM.IMHP ---
H&P: HPI History of Present Illness Date/Time: 03/23/21 17:36 29 y/o AAF 39w2d with PMH of with syphilis, GBS carrier, and persistent malpresentation-BREECH who presents for primary elective low transverse caesarean section under spinal anesthesia. I explained her condition, procedure and risks involved. Including risk of bleeding, infection, injury to bladder, bowel, baby pelvic vessels, DVT, pneumonia, wound infection, UTI, risk of hemorrhage and risk of anesthesia. She understands this and accepts and agrees to proceed. Her care began 08/31/20 and was seen for 12 visits. evaluate with negative NIPT, AFP normal, ultrasound each trimester normal, GTT normal, TDAP given, GBS positive, and last ultrasound on 03/23/21 confirmed with [facility] 04/09. Chief Complaint: elective primary low transverse caesaraen section for malpresentation-BREECH term Review of Systems Review of Systems: All systems reviewed & are unremarkable except as noted in HPI and below Constitutional: Constitutional: Reports no additional constitutional complaints Eyes: Eyes: Reports no additional eye complaints ENT: Reports system reviewed and no additional complaints, except as documented Cardiovascular: Cardiovascular: Reports no additional cardiovascular complaints Respiratory: Respiratory: Reports no additional respiratory complaints Gastrointestinal: Gastrointestinal: Reports no additional gastrointestinal complaints Genitourinary: Genitourinary: Reports no additional female genitourinary complaints Musculoskeletal: Musculoskeletal: Reports no additional musculoskeletal complaints Integumentary/Breasts: Skin/Breast: Reports system reviewed and no additional complaints, except as docu Neurologic: Reports system reviewed and no additional complaints, except as documented Psychiatric: Psychiatric: Reports no additional psychiatric complaints Endocrine: Endocrine: Reports no additional endocrine complaints Hematologic/Lymphatic: Hematologic/Lymphatic: Reports no additional hematologic/lymphatic complaints Allergic/Immunologic: Allergic/Immunologic: Reports no additional allergic/immunologic complaints [facility] Past Medical History Medical History (Updated 03/23/21 @ 17:53 by Jared Odonnell MD) Anemia Bacterial vaginosis Candidiasis COVID-19 affecting in third trimester False labor growth restriction malpresentation GBS carrier Spontaneous onset of labor Syphilis affecting , antepartum Term delivered Family History Family History Mother Hypertension Father Lymphoma Social History Social History (Updated 03/23/21 @ 17:55 by Jared Odonnell MD) Smoking status: Never smoker Second hand tobacco smoke exposure: No Alcohol intake: never Substance use: current Substance use type: marijuana Living arrangements: with family Gender identity (if verbalized by the patient): Female Sexual Orientation (if Verbalized by the Patient): Straight or Heterosexual Spiritual care concerns: No Meds Home Medications and Allergies Home Medications Medication Instructions Recorded Confirmed Type Gummies 1 tablet PO DAILY 03/03/21 03/03/21 History ferrous sulfate 325 mg PO DAILY 03/03/21 03/03/21 History Allergies Allergy/AdvReac Type Severity Reaction Status Date / Time amoxicillin Allergy Itching Verified 09/02/20 14:23 fluconazole Allergy Hives Verified 09/02/20 14:23 Exam Const: General: cooperative, healthy appearing and comfortable Nutritional Appearance: average body habitus Orientation/consciousness: oriented to person, oriented to place and oriented to time Limitations: no limitations HENMT: Head: normal to inspection Eyes: General: appearance normal, both eyes and all related structures Neck: Neck: normal visual inspect
--- NOTE | 2021-03-23 17:41 | PM.IMHP ---
H&P: HPI History of Present Illness Date/Time: 03/23/21 17:41 29 y/o AAF 39w2d with PMH of with syphilis, GBS carrier, and persistent malpresentation-BREECH who presents for primary elective low transverse caesarean section under spinal anesthesia. I explained her condition, procedure and risks involved. Including risk of bleeding, infection, injury to bladder, bowel, baby pelvic vessels, DVT, pneumonia, wound infection, UTI, risk of hemorrhage and risk of anesthesia. She understands this and accepts and agrees to proceed Chief Complaint: elective primary low transverse caeseraen section for malpresentation-BREECH in term PMFSH Past Medical History Medical History Anemia Family History Family History Mother Hypertension Father Lymphoma Social History Social History Smoking status: Never smoker Second hand tobacco smoke exposure: No Substance use: never Gender identity (if verbalized by the patient): Female Spiritual care concerns: No Meds Home Medications and Allergies Home Medications Medication Instructions Recorded Confirmed Type Gummies 1 tablet PO DAILY 03/03/21 03/03/21 History ferrous sulfate 325 mg PO DAILY 03/03/21 03/03/21 History Allergies Allergy/AdvReac Type Severity Reaction Status Date / Time amoxicillin Allergy Itching Verified 09/02/20 14:23 fluconazole Allergy Hives Verified 09/02/20 14:23
--- NOTE | 2021-03-23 17:43 | WPDOBADMIT ---
Obstetrics - Admit Note Admission Note: record reviewed. No pertinent additions to the history and/or any subsequent changes in the physical findings that are not consistent with the expected course of the were found. Additions to the history and/or subsequent changes in the physical findings follow. None. 29 y/o AAF 39w2d with PMH of with syphilis, GBS carrier, and persistent malpresentation-BREECH who presents for primary elective low transverse caesarean section under spinal anesthesia. I explained her condition, procedure and risks involved. Including risk of bleeding, infection, injury to bladder, bowel, baby pelvic vessels, DVT, pneumonia, wound infection, UTI, risk of hemorrhage and risk of anesthesia. She understands this and accepts and agrees to proceed
--- NOTE | 2021-03-23 17:43 | WPDHPUPDATE1 ---
History and Physical Update Update Date/Time: 03/23/21 17:43 29 y/o AAF 39w2d with PMH of with syphilis, GBS carrier, and persistent malpresentation-BREECH who presents for primary elective low transverse caesarean section under spinal anesthesia. I explained her condition, procedure and risks involved. Including risk of bleeding, infection, injury to bladder, bowel, baby pelvic vessels, DVT, pneumonia, wound infection, UTI, risk of hemorrhage and risk of anesthesia. She understands this and accepts and agrees to proceed History and Physical has been reviewed, including an updated exam of the patient. There are NO changes in the patient's condition. Risks, benefits, and alternatives have been discussed and questions answered. Patient agrees to proceed with procedure.
[2021-03-24] VITALS (63 sets, daily range): BP systolic 95–136; BP diastolic 53–81; PULSE 57–81; RESP 14–17; TEMP 36.2–37.3; O2SAT 100; BMI 28.7
--- OUTSIDE RECORDS SUMMARY | 2021-03-24 07:07 | XMS_ITS ---
:1990 Author Care Team Providers Name Role Phone GWENDOLYN ANDREW MD Director Of Conservation [phone] Allergies Code Code System Name Reaction Severity Status Onset 970229 RxNorm Augmentin Hives ? Active ? 4450 RxNorm Fluconazole Hives ? Active ? 723 RxNorm Amoxicillin Hives Moderate to Deactivated ? Severe Penicillins Hives Moderate to Deactivated ? Severe Notes: [facility] test said negative fo r allergies to amoxicillin, penicillins 07/13/19 Medications Name Status Start Date Stop Date ? ? acetaminophen 325 mg tablet Completed ? 08/2020 amoxicillin 875 mg-potassium Completed ? 09/2020 clavulanate 125 mg tablet aspirin 81 mg chewable tablet Active ? No t available aspirin 81 mg tablet,delayed release Completed ? 08/11/2019 azithromycin 250 mg tablet Completed ? 02/01 baclofen 20 mg tablet Completed ? 08/11/2019 Calcium 600 with Vitamin D3 600 mg (1,500 mg)-400 unit capsule C ompleted ? 02/01/2021 Take 1 capsule twice a day by oral route. calcium carbonate 500 mg(1,250 Completed ? 0 07/23/2016 mg)-vitamin D3 400 unit chewable tablet calcium carbonate-vitamin D3 600 mg (1,500 mg)-800 unit tablet C ompleted ? 06/20/2018 Take 1 tablet twice a day by oral route. Calcium with Vitamin D 600 mg (1,500 mg)-400 unit tablet Complet ed ? 08/31/2020 Take 1 tablet twice a day by oral route. Caltrate Gummy Bites 250 mg-10 mcg (400 unit) chewable tablet Ac tive ? Not available Take 1
--- OUTSIDE RECORDS SUMMARY | 2021-03-24 07:08 | XMS_ITS | Encounter Summary ---
:1990 Author Care Team Providers Name Role Phone Jared Odonnell MD Manager Medicaid [phone] Reason for Visit ob routine visit Assessment and Plan Assessment Note MICHAEL Velez-S 1. Routine care ? culture, vaginal/rectal, s treptococcus group B - PLEASE FAX RESULTS TO [facility] [phone] ? bacterial vaginosis + vagi nitis panel, vaginal - PLEASE FAX RESULTS TO [facility] [phone] ? HSV (1+2) DNA, qual, PCR, unspecified specimen - PLEASE FAX RESULTS TO [facility] AT [phone] ? urinalysis, dipstick 2. Group B Streptococcus carrier ? US, obstetric, 3rd trimest er - growth, position CPT: 75120 Discussion Note: None recorded.Patient educational handouts: No information available. Plan of Care Reminders Provider Appointments 15 M rene Odonnell, 04/17/2021 10:00AM Lab Culture, [facility] Vaginal/rectal, 03/01/2021 Streptococcus Group B ? Bacterial [facility] Vaginosis + Vaginitis 03/01/2021 Panel, Vaginal ? HSV (1+2) DNA, [facility] Qual, PCR, Unspecified 03/01/2021 Specimen ? Urinalysis, In-Of fice Order Dipstick 03/01/20
--- OUTSIDE RECORDS SUMMARY | 2021-03-24 07:08 | XMS_ITS | Encounter Summary ---
:1990 Author Care Team Providers Name Role Phone Jared Odonnell MD Product Tester [phone] Reason for Visit ob routine visit CC Had contractions this am for 3 hrs pt took warm bath and they eased up then just off and on ever since. No spotting, fluid leakage. Baby still moving well Assessment and Plan Assessment Note JOSELO Montoya 1. Routine care JULES at 38 weeks. c/b anemia, COVID-19 infection, h/o syphilis, and GBS carrier. Intermittent contractio ns, wtc/wlb reviewed. US on 03/10 showed an EFW of 12% and baby in breech position. Plan as below. RTC in [address] Odonnell. ? urinalysis, dipstick 2. growth restriction EFW 12%. Weekly NST/BPP, testi ng scheduled tomorrow. 3. Malpresentation of fetus Breech presentation. Will like ly need , scheduled for 03/24. 4. Anemia Continue iron supplement. ? anemia: care instructions 5. Group B Streptococcus carrier Will receive intrapartum abx. Discussion Note: None recorded. Plan of Care Reminders Provider Appointments 15 M erne Odonnell, 04/17/2021 10:00AM Lab Urinalysis, In-Of fice Order Dipstick 03/15/2021 Referral None recorded. ? ?
--- OUTSIDE RECORDS SUMMARY | 2021-03-24 07:08 | XMS_ITS | Encounter Summary ---
:1990 Author Care Team Providers Name Role Phone Jared Odonnell MD Industrial Chemist [phone] Reason for Visit ob routine visit Assessment and Plan Assessment Note Rula JOSUE 1. Routine care JULES at 34 weeks. c/b anemia, COVID-19 infection, h/o syphilis, and GBS carrier. No concerns. 32wk labs drawn today. WTC/WLB reviewed. RTC in 2 weeks. ? urinalysis, dipstick ? CBC - Please fax results t o [facility] [phone] 2. Venereal disease screening ? HIV 1+2 AB + HIV 1 p24 Ag, qualitative immunoassay, serum - Please fax results to [facility] 3. History of syphilis Previously treated. Last titer 1:2. Recheck today. ? RPR (rapid plasma reagin), serum - Please fax results to [facility] [phone] 4. Anemia Continue iron supplement. Repe at CBC today. Discussion Note: None recorded.Patient educational handouts: No information available. Plan of Care Reminders Provider Appointments 15 M rene Odonnell, 04/17/2021 10:00AM Lab Urinalysis, In-Of fice Order Dipstick 02/15/2021 ? HIV 1+2 AB + [facility] HIV 1 P24 Ag, Qualitative 02/15/2021 Immuno
--- OUTSIDE RECORDS SUMMARY | 2021-03-24 07:08 | XMS_ITS | Encounter Summary ---
:1990 Author Care Team Providers Name Role Phone Jared Odonnell MD Benefits Assistant [phone] Reason for Visit Breech presentation; ob routine visit; p re-op evaluation Assessment and Plan 1. Routine care ? urinalysis, dipstick 2. Breech presentation scheduled for on 03/02 10/19 ? turning a breech baby: car e instructions 3. growth restriction fgr 12th% (5-14) normal SALVATORE 14 ; weekly BPP with NST and deliver 39 weeks or earlier if indicated 4. Malpresentation of fetus breech presentation 5. Group B Streptococcus carrier Will need [facility] at [facility] Discussion Note: None recorded. Plan of Care Reminders Provider Appointments 15 M rene Odonnell, 04/17/2021 10:00AM Lab Urinalysis, In-Of fice Order Dipstick 03/22/2021 Referral None recorded. ? ? Procedures None recorded. ? ? Surgeries None recorded. ? ? Imaging None recorded. ? ? Medications Name Start Date ? ? aspirin 81 mg chewable tablet ? CHEW 2 TABLETS BY MOUTH EVERY DAY
--- OUTSIDE RECORDS SUMMARY | 2021-03-24 07:08 | XMS_ITS | Encounter Summary ---
:1990 Author Care Team Providers Name Role Phone Jared Odonnell MD Vba Programmer [phone] Reason for Visit ob routine visit Assessment and Plan Assessment Note JOSELO Velez 1. Routine care ? urinalysis, dipstick 2. Anemia ? anemia: care instructions 3. Group B Streptococcus carrier Discussion Note: None recorded. Plan of Care Reminders Provider Appointments 15 M rene Odonnell, 04/17/2021 10:00AM Lab Urinalysis, In-Of fice Order Dipstick 03/08/2021 Referral None recorded. ? ? Procedures None recorded. ? ? Surgeries None recorded. ? ? Imaging None recorded. ? ? Medications Name Start Date ? ? aspirin 81 mg chewable tablet ? CHEW 2 TABLETS BY MOUTH EVERY DAY Caltrate Gummy Bites 250 mg-10 mcg (400 unit) chewable tablet ? Take 1 tablet every day by oral route. famotidine 20 mg tablet ? TAKE 1 TABLET BY MOUTH TWICE A DAY ferrous sulfate 325 mg (65 mg iron) tablet ? Take 1 tablet twice a day by oral route. labetalol 100 mg tablet ? Take 1 tablet every day by oral route as dir
--- OUTSIDE RECORDS SUMMARY | 2021-03-24 07:08 | XMS_ITS | Encounter Summary ---
:1990 Author Care Team Providers Name Role Phone Jaerd Odonnell MD Tip Printer [phone] Reason for Visit ob routine visit; Phone Visit pt positive covid, 01/16/21, clear to co me in clinic 02/15/21, appt c Francisca Magaña 02/15/21, cb-a Assessment and Plan 1. Routine care 2. Group B Streptococcus carrier 3. COVID-19 4. Hyperemesis gravidarum ? Zofran 4 mg tablet Discussion Note: None recorded.Patient educational handouts: No information available. Plan of Care Reminders Provider Appointments 15 M rene Odonnell, 04/17/2021 10:00AM Lab None recorded. ? ? Referral None recorded. ? ? Procedures None [...] tablet every day by oral route as directed.
--- NOTE | 2021-03-24 07:57 | P.HPUP_ITS ---
History and Physical Update Update Date/Time: 03/24/21 07:57 29 y/o AAF 39w2d with PMH of with syphilis, GBS carrier, and persistent malpresentation-BREECH who presents for primary elective low transverse caesarean section under spinal anesthesia. I explained her condition, procedure and risks involved. Including risk of bleeding, infection, injury to bladder, bowel, baby pelvic vessels, DVT, pneumonia, wound infection, UTI, risk of hemorrhage and risk of ane sthesia. She understands this and accepts and agrees to proceed History and Physical has been reviewed, including an updated exam of the patient. There are NO changes in the patient's condition. Risks, benefits, and alternatives have been discussed and questions answered. Patient agrees to proceed with procedure.
[2021-03-24] MEDS: LACTATED RINGERS 1,000 ML 125 ML IV CONT (08:04)
[2021-03-24 08:08] LABS: Basophils Percent Auto 0.3 % (0.2-1.2); Eosinophils Percent Auto 0.3 % (0-4.4); Hematocrit 37.7 % (37.0-47.0); Hemoglobin 10.6 g/dL (12.0-15.0); Immature Granulocyte Absolute 0.04 K/mm3 (0.00-0.031); Immature Granulocyte Percent A 0.5 % (0-0.5); Immature Platelet Fraction Pct 9.7 % (0.9-11.2); Lymphocytes Absolute Auto 1.35 K/mm3 (0.9-3.2); Lymphocytes Percent Auto 17.4 % (18.3-44.2); Mean Corpuscular HGB Conc 28.1 g/dl (32-36); Mean Corpuscular Hemoglobin 21.7 pg (26-34); Mean Corpuscular Volume 77.1 fl (80-100); Monocytes Absolute Auto 0.4 K/mm3 (0.1-0.6); Monocytes Percent Auto 5.2 % (2.6-8.5); Neutrophils Absolute Auto 5.9 K/mm3 (1.3-6.7); Neutrophils Percent Auto 76.3 % (45.5-73.1); Platelet Count Result 258 k/mm3 (150-375); Red Blood Count 4.89 M/mm3 (4.2-5.4); White Blood Count 7.8 K/mm3 (4.5-10.0)
--- NOTE | 2021-03-24 08:17 | LDADM ---
This patient, Dotty Ayon, was admitted to Labor/Delivery/Recovery 120 on 03/24/21 at 07:02. Plans for scheduled primary section, pain management and were discussed with patient. Patient/family oriented to hospital policies and general routines including ID bracelet, bed and alarms, visiting hours, pain management, procedures, bathroom and other care routines, personal items, smoking policy, room service/diet and guest tray routines, infant security routines, and visiting hours. Patient/Family are encouraged to report perceived risks to care and to ask questions if they do not understand what they are told or what they should do. See OBIX for further documentation.
[2021-03-24 08:27] LABS: Barbiturate Screen Urine Negative (Negative); Benzodiazepines Screen Urine Negative (Negative)
[2021-03-24 08:30] LABS: Amphetamine Screen Urine Negative (Negative); Cannabinoid Screen Urine Positive (Negative); Cocaine Screen Urine Negative (Negative); Methadone Screen Urine Negative (Negative); Opiate Screen Urine Negative (Negative); Phencyclidine Screen Urine Negative (Negative)
--- NOTE | 2021-03-24 08:30 | PC.NURSE ---
at bedside,US performed. Breech presentation confirmed
--- NOTE | 2021-03-24 08:40 | WPDANESEPPF ---
Anes - Initial Pre Proc Eval Procedure: Operation Date: 03/24/21 09:00 Proposed Procedures p Section - Jared Odonnell MD Date/Time: 03/24/21 08:40 Surgeon: Jared Odonnell MD Pre Op Diagnosis: C/Section Patient Data Age: 30 Gender: F Height: 1.63 m Weight: 75.9 kg Last Vital Signs Temp 36.4 C L 03/24/21 08:05 Pulse 75 03/24/21 07:46 BP 136/81 03/24/21 07:46 Allergies Allergy/AdvReac Type Severity Reaction Status Date / Time amoxicillin Allergy Itching Verified 09/02/20 14:23 fluconazole Allergy Hives Verified 09/02/20 14:23 Home Medications Medication Instructions Recorded Confirmed Type Gummies 1 tablet PO DAILY 03/03/21 03/03/21 History ferrous sulfate 325 mg PO DAILY 03/03/21 03/03/21 History Laboratory Tests 03/24/21 03/24/21 03/24/21 07:43 07:43 07:43 WBC 7.8 K/mm3 K/mm3 (4.5-10.0) RBC 4.89 M/mm3 M/mm3 (4.2-5.4) Hgb 10.6 g/dL L g/dL (12.0-15.0) Hct 37.7 % % (37.0-47.0) MCV 77.1 fl L fl (80-100) MCH 21.7 pg L pg (26-34) MCHC 28.1 g/dl L g/dl (32-36) RDW 24.0 % H % (11.5-14.5) Plt Count 258 k/mm3 k/mm3 (150-375) MPV TNP Immature Gran % (Auto) 0.5 % % (0-0.5) Neut % (Auto) 76.3 % H % (45.5-73.1) Lymph % (Auto) 17.4 % L % (18.3-44.2) [place] % (Auto) 5.2 % % (2.6-8.5) Eos % (Auto) 0.3 % % (0-4.4) Baso % (Auto) 0.3 % % (0.2-1.2) Lymph # (Auto) 1.35 K/mm3 K/mm3 (0.9-3.2) [place] # (Auto) 0.4 K/mm3 K/mm3 (0.1-0.6) Eos # (Auto) 0.0 K/mm3 K/mm3 (0-0.3) Baso # (Auto) 0.0 K/mm3 K/mm3 (0.0-0.1) Abs Immat Gran (auto) 0.04 K/mm3 H K/mm3 (0.00-0.031) Absolute Neuts (auto) 5.9 K/mm3 K/mm3 (1.3-6.7) Absolute Nucleated RBC 0.0 K/mm3 K/mm3 (0.0-0.012) Nucleated RBC % 0.0 % % (0.0-0.2) % Immature Plt Fraction 9.7 % % (0.9-11.2) Urine Opiates Screen Negative (Negative) Urine Methadone Screen Negative (Negative) Ur Barbiturates Screen Negative (Negative) Ur Phencyclidine Scrn Negative (Negative) Ur Amphetamine Screen Negative (Negative) U Benzodiazepines Scrn Negative (Negative) Urine Cocaine Screen Negative (Negative) U Cannabinoids Screen Positive A (Negative) RPR Pending Patient hx anesthesia problems: none Family hx anesthesia problems: none Results Review: All pre-operative results and documents have been reviewed as part of the pre-operative evaluation. [facility] Past Medical History Medical History Anemia Bacterial vaginosis Candidiasis COVID-19 affecting in third trimester False labor growth restriction malpresentation GBS carrier Spontaneous onset of labor Syphilis affecting , antepartum Term delivered Family History Family History Mother Hypertension Father Lymphoma Social History Social History Smoking status: Never smoker Second hand tobacco smoke exposure: No Alcohol intake: never Substance use: current Substance use type: marijuana Gender identity (if verbalized by the patient): Female Sexual Orientation (if Verbalized by the Patient): Straight or Heterosexual Spiritual care concerns: No Anes - Eval Final PreProcedure Day of Procedure 03/24/21 08:40 Patient weight: overweight Heart: regular rate and rhythm Lungs: clear to auscultation Airway: Mallampati scale class II Neurological: alert and oriented Last oral intake: >/= 8 hours ASA classification: III Emergent: no Anesthetic plan: proceed
[2021-03-24] MEDS: KETOROLAC 30 MG/ML VIAL (*BKC) IV PUSH (09:50)
--- NOTE | 2021-03-24 10:10 | P.PCNOB_ITS ---
OB - Delivery Note Procedure Delivery date: 03/24/21 Procedure: Procedures Operation Date: 03/24/21 09:00 Primary Low Transverse Caesarean Section with Breech Extraction of Viable male and placenta Intrapartal events: Abnormal Presentation (Sameera breech) and Sexually Transmitted Infection (Syphillis) Induction method: none Route of delivery: (Primary Low Transverse Caesarean Section with Breech Extraction of Viable male and placenta) Episiotomy description: None Laceration Description: None Specimen: Yes (Placenta, cord blood, cord blood gases) Quantitative Blood Loss (ml): 1,040 Anesthesia type: Spinal (duramorph) Disposition: floor Complications: none Narrative: see full detailed note [place] Baby Date of : 03/24/21 Time of : 09:34 Weeks of gestation at delivery: 40 gender: Male (Ramir) Weight (pounds): 7 Weight (ounces): 3 presentation: sameera breech Placenta delivery description: Manual Removal and Normal Configuration cord vessel description: 3 Vessels score one minute: 8 score five minutes: 9
--- NOTE | 2021-03-24 10:14 | W.PM.PROC2 ---
Procedure Note - Detailed Date of Procedure 03/24/21 Pre-op Diagnosis Term malpresentation- Sameera Breech Post-op Diagnosis same (Term -delivered, malpresentation-sameera breech) Procedure Performed Primary Low Transverse Caesarean Section with Breech Extraction of Viable male and placenta Surgeon Jared Odonnell MD Consultant [employer]. Vice President [employer] Pam, salesperson surgical appliances. MICHAEL Bruner student. Anesthesia spinal (duramorph) Indications malpresentation-sameera breech Findings male (Ramir) delivered at 09:34. Spontaneous respirations and cry to nursery in stable condition. Normal placenta intact 3 vessel cord. Normal uterus, tubes and ovaries. Hemostasis excellent. Ancef 2g, 2L IV fluids, 200cc urine output from [place], counts correct, no complications, VTE prevention-SCDs Description of Procedure Confirmatory ultrasound of sameera breech presentation was performed in the holding room. Informed consent obtained patient was taken to the operating room and placed in the sitting position on the operating table. Spinal anesthetic with Duramorph was administered. Patient was placed in the supine position and a Mancilla catheter was inserted and then her abdomen was prepped and then draped in the usual sterile fashion. A time-out was performed. A Pfannenstiel incision was then made to the skin and the abdomen was opened in layers with electrocautery. The fascia incision was extended bilaterally and then undermined both superior and inferior. The rectus muscles were in the midline and the peritoneum was entered with electrocautery. Digital dissection of the peritoneum was followed by low transverse incision to the uterus and a Peon clamp was used to enter the amniotic sac and clear fluid was obtained. Sameera breech presentation was confirmed and I delivered the buttocks with guidance from the superior iliac crest bilateral the legs were delivered the umbilical cord was extended and the arms were swept across the chest anteriorly and then the vertex was delivered with the modified Merocel maneuver for through the abdominal incision. There was spontaneous respirations and cry the umbilical cord was clamped and then cut and the was handed to the nursery nurse in attendance. scores given 8 9 at 1 and 5 minutes after the time of 9 for 30 4:00 a.m.. Cord gas segment was removed and cord blood was sampled and then the placenta was delivered manually intact with a three-vessel cord. The uterus was externalized blood clots membranes removed from the intrauterine cavity with sponge and then Pitocin was given intravenously as well as 10 units into the myometrium with excellent involution of the uterus. The uterine incision was then repaired in 2 layers with 0 Vicryl in a running interlocking fashion the 2nd being a running stitch closure of the peritoneum with excellent approximation and hemostasis was excellent. Blood clots removed from the cul-de-sac both lateral margins and the uterus was then returned to the peritoneal cavity the sponge needle and instrument counts were correct. The anterior peritoneum and rectus muscles were then reapproximated with 0 Vicryl suture in a running fashion. The fascia was then closed with 2. Quill S RS system bilaterally. The subcutaneous Aiden's fascia was reapproximated with 3-0 plain in a running fashion. The skin was closed with Insorb absorbable staple device and then Dermabond to the skin. A Mepilex dressing was placed over the incision and the procedure was completed the patient was taken to the recovery room stable condition both mom and baby were stable. Estimated Blood Loss 1,040 IV Fluids 2,000 Urine Output 200 Drains No Packing No Pathology yes (placenta, cord blood and cord blood gases) Complications None Condition stable Disposition floor
[2021-03-24] MEDS: OXYTOCIN 30 UNITS/NS 500 ML 30 UNITS/500 ML BAG 125 UNITS IV CONT (10:52)
--- NOTE | 2021-03-24 12:20 | PC.NURSE ---
Patient transferred to post room #290 per stretcher from labor and delivery. Support person present. Oriented to unit, room, information board, rooming in, admission packet and security measures. Patient verbalizes understanding.
[2021-03-24 13:53] LABS: Rapid Plasma Reagin Reactive (NonReactive)
[2021-03-24] MEDS: DEXTROSE 5%/0.45% SOD CHL 1,000 ML 125 ML IV CONT (16:30)
--- NOTE | 2021-03-24 17:24 | PC.NURSE ---
0745-I asked RYLEY to step out of the room to discuss with pt that she had syphilis. Pt states she was told she had a negative test in January and she said she went to [facility] to get the PCN V injection in her butt . I told pt that we had her down as having a ampicillin allergy and she said they did a skin test to check for an allergy prior to giving her the injection. I informed the pt that in her chart it stated she was given a 10 day dose of PCN and she said she was never given that prescription and that she was told she needed the injection and that's what she received.
[2021-03-24] MEDS: IBUPROFEN 600 MG TABLET PO (19:55)
[2021-03-24] MEDS: HYDROcodone/acetaminophen (*CRX) 5-325 MG TABLET 1 TAB PO (19:55)
[2021-03-25] MEDS: IBUPROFEN 600 MG TABLET PO ×4 (01:25→21:55)
[2021-03-25] MEDS: HYDROcodone/acetaminophen (*CRX) 5-325 MG TABLET 1 TAB PO (01:26)
[2021-03-25 04:41] VITALS: BP 119/65; PULSE 68; RESP 16; TEMP 36.6
[2021-03-25 05:25] LABS: Basophils Percent Auto 0.1 % (0.2-1.2); Eosinophils Percent Auto 0.3 % (0-4.4); Hematocrit 24.8 % (37.0-47.0); Immature Granulocyte Absolute 0.04 K/mm3 (0.00-0.031); Immature Granulocyte Percent A 0.4 % (0-0.5); Immature Platelet Fraction Pct 7.3 % (0.9-11.2); Lymphocytes Absolute Auto 1.28 K/mm3 (0.9-3.2); Lymphocytes Percent Auto 11.5 % (18.3-44.2); Mean Corpuscular HGB Conc 28.2 g/dl (32-36); Mean Corpuscular Hemoglobin 21.3 pg (26-34); Mean Corpuscular Volume 75.4 fl (80-100); Mean Platelet Volume 11.9 fl (7.4-10.4); Monocytes Absolute Auto 0.6 K/mm3 (0.1-0.6); Monocytes Percent Auto 5.7 % (2.6-8.5); Neutrophils Absolute Auto 9.1 K/mm3 (1.3-6.7); Platelet Count Result 192 k/mm3 (150-375); Red Blood Count 3.29 M/mm3 (4.2-5.4); White Blood Count 11.1 K/mm3 (4.5-10.0)
[2021-03-25 06:30] VITALS: BP 98/44; PULSE 79; RESP 20; TEMP 36.7
[2021-03-25] MEDS: HYDROcodone/acetaminophen (*CRX) 10-325 MG TABLET 1 TAB PO ×4 (06:39→20:58)
[2021-03-25 07:16] LABS: Hypochromasia 2+ (NORMAL); Microcytosis 1+ (NORMAL); Platelet Estimate Adequate (Adequate)
[2021-03-25 07:17] LABS: Large Platelets Present
--- NOTE | 2021-03-25 08:16 | PM.OBPNVD ---
OB - PN: Subj Subjective Date/time seen: 03/25/21 08:16 Patient comments: no complaints, pain well controlled, tolerating diet and flatus present baby status: doing well feeding status: exclusively bottle feeding OB - PN: Obj Data Labs CBC & Chem 7: 03/25/21 04:35 Labs: Laboratory Results - last 24 hr 03/24/21 03/24/21 03/24/21 07:43 07:43 07:43 WBC RBC Hgb Hct MCV MCH MCHC RDW Plt Count MPV Immature Gran % (Auto) Neut % (Auto) Lymph % (Auto) Ashley % (Auto) Eos % (Auto) Baso % (Auto) Lymph # (Auto) Ashley # (Auto) Eos # (Auto) Baso # (Auto) Abs Immat Gran (auto) Absolute Neuts (auto) Absolute Nucleated RBC Nucleated RBC % Platelet Estimate Large Platelets % Immature Plt Fraction Hypochromasia Microcytosis Urine Opiates Screen Negative Urine Methadone Screen Negative Ur Barbiturates Screen Negative Ur Phencyclidine Scrn Negative Ur Amphetamine Screen Negative U Benzodiazepines Scrn Negative Urine Cocaine Screen Negative U Cannabinoids Screen Positive A RPR Reactive A Blood Type AB Positive Antibody Screen Negative 03/25/21 04:35 WBC 11.1 H RBC 3.29 L Hgb 7.0 L D Hct 24.8 L MCV 75.4 L MCH 21.3 L MCHC 28.2 L RDW 23.0 H Plt Count 192 MPV 11.9 H Immature Gran % (Auto) 0.4 Neut % (Auto) 82.0 H Lymph % (Auto) 11.5 L Ashley % (Auto) 5.7 Eos % (Auto) 0.3 Baso % (Auto) 0.1 L Lymph # (Auto) 1.28 Ashley # (Auto) 0.6 Eos # (Auto) 0.0 Baso # (Auto) 0.0 Abs Immat Gran (auto) 0.04 H Absolute Neuts (auto) 9.1 H Absolute Nucleated RBC 0.0 Nucleated RBC % 0.0 Platelet Estimate Adequate Large Platelets Present % Immature Plt Fraction 7.3 Hypochromasia 2+ Microcytosis 1+ Urine Opiates Screen Urine Methadone Screen Ur Barbiturates Screen Ur Phencyclidine Scrn Ur Amphetamine Screen U Benzodiazepines Scrn Urine Cocaine Screen U Cannabinoids Screen RPR Blood Type Antibody Screen OB - PN A/P Assessment and Plan (1) Term delivered: Code(s): O80 - Encounter for full-term uncomplicated delivery Status: Acute Assessment and Plan: Discharge to home 03/26/2021 (2) Delivery by elective section: Code(s): O82 - Encounter for delivery without indication Status: Acute Assessment and Plan: Stable postop day 1. (3) malpresentation: Code(s): O32.9XX0 - Maternal care for malpresentation of fetus, unspecified, not applicable or unspecified Status: Acute (4) GBS carrier: Code(s): Z22.330 - Carrier of Group B streptococcus Status: Acute (5) Syphilis affecting , antepartum: Code(s): O98.119 - Syphilis complicating , unspecified trimester Status: Acute (6) Anemia: Code(s): D64.9 - Anemia, unspecified Status: Acute Assessment and Plan: Iron therapy twice daily will go home on iron Plan day: 1 Plan: routine care, discharge home and follow up 6 weeks Time Spent With Patient Time: Total time spent is greater than 50% in coordination of care (as documented) at patient's floor/unit and/or counseling patient: Time with patient: less than 15 minutes Review of Systems Review of Systems: All systems reviewed & are unremarkable except as noted in HPI and below Exam Const: General: cooperative, healthy appearing, comfortable, no acute distress, well developed, alert, awake and Physically active Nutritional Appearance: average body habitus Limitations: no limitations HENMT: Head: normal to inspection Eyes: General: appearance normal, both eyes and all related structures Neck: Neck: normal visual inspection Chest: Chest palpation & inspection: normal inspection of the chest Resp: Effort & Inspection: normal respiratory effort Auscultation:
[2021-03-25] MEDS: MULTIVIT/MIN/PREN/FOL AC/IRON TABLET 1 TAB PO (09:29)
[2021-03-25] MEDS: POLYSACCHARIDE IRON COMPLEX 150 MG CAPSULE PO ×2 (09:29→15:55)
[2021-03-25] MEDS: DOCUSATE SODIUM 100 MG CAPSULE PO ×2 (09:29→15:55)
--- NOTE | 2021-03-25 11:11 | WPDANLDPN2 ---
Anes-Prog Note L&D Date/Time: 03/25/21 11:11 Comfortable throughout: section Neuraxial method: spinal Epidural/Spinal procedure site: clean & non-tender Neuro status: Neuro function grossly intact. Cardiovascular status: normal Respiratory status: normal Airway patency: baseline Mental status: baseline Post-Op hydration status: normal Vital Signs: Last Vital Signs Temp 36.7 C 03/25/21 06:30 Pulse 79 03/25/21 06:30 Resp 20 03/25/21 06:30 BP 98/44 L 03/25/21 06:30 Pulse Ox 100 03/24/21 12:30 Pain score (VAS): 07/10 I/O: Intake & Output 03/24/21 03/25/21 03/25/21 23:59 07:59 15:59 Intake Total 1800 Output Total 1999 800 225 Balance -200 -800 -225 Post-procedural complaints: none Patient feedback: Patient satisfied with anesthetic care.
--- NOTE | 2021-03-25 11:12 | WPDANLDNPN2 ---
Anes-Prog Note L&D-Neuraxial Date/Time: 03/25/21 11:12 Neuraxial medications: intrathecal PF morphine Opiod-related complaints: none Patient feedback: Patient satisfied with post-operative pain management.
--- NOTE | 2021-03-25 11:26 | PC.NURSE ---
Addendum entered by Vannesa Iglesias RN 03/25/21 12:41: (Continuation of note) Dr. Odonnell verbally confirmed via phone call at 1126 that pt had syphilis with her first , was treated at that time, and has not had any active syphilis outbreak during this . He stated when pt's RPR came back positive during she was sent to [facility] and it was confirmed there that the RPR appeared to be a false positive from the previous , as one can test positive after a hx of syphilis during . [facility] decided at that point they were not going to treat the pt. Dr. Odonnell stated he did not have a copy of the [facility] report of whether/which titers were drawn to evaluate syphilis status. He would work to get a copy of that sent to the hospital. Information from this conversation will be shared with Dr. Reinoso, [facility] corn shredder, to help him determine course of treatment for the baby. Original Note: Spoke with Dr. Odonnell regarding pt's RPR status and questioned whether or not pt had a hx of active syphilis during this .
[2021-03-25 19:15] VITALS: BP 118/68; PULSE 75; RESP 16; TEMP 36.7
[2021-03-26] MEDS: HYDROcodone/acetaminophen (*CRX) 10-325 MG TABLET 1 TAB PO ×2 (02:18→07:53)
[2021-03-26] MEDS: IBUPROFEN 600 MG TABLET PO (07:53)
[2021-03-26] MEDS: POLYSACCHARIDE IRON COMPLEX 150 MG CAPSULE PO (07:53)
[2021-03-26] MEDS: DOCUSATE SODIUM 100 MG CAPSULE PO (07:54)
[2021-03-26 08:00] VITALS: BP 115/76; PULSE 75; RESP 16; TEMP 36.8; O2SAT 100
--- NOTE | 2021-03-26 08:25 | PM.OBDSVD ---
DS: Admitting Diagnosis Discharge Date 03/26/21 Admitting Diagnosis (1) Term : Code(s): Z34.90 - Encounter for supervision of normal , unspecified, unspecified trimester Status: Acute (2) malpresentation: Code(s): O32.9XX0 - Maternal care for malpresentation of fetus, unspecified, not applicable or unspecified Status: Acute (3) GBS carrier: Code(s): Z22.330 - Carrier of Group B streptococcus Status: Acute (4) Syphilis affecting , antepartum: Code(s): O98.119 - Syphilis complicating , unspecified trimester Status: Acute (5) Anemia: Code(s): D64.9 - Anemia, unspecified Status: Acute DS: Discharge Diagnosis Discharge Diagnosis (1) Term delivered: Code(s): O80 - Encounter for full-term uncomplicated delivery Status: Acute (2) malpresentation: Code(s): O32.9XX0 - Maternal care for malpresentation of fetus, unspecified, not applicable or unspecified Status: Acute (3) GBS carrier: Code(s): Z22.330 - Carrier of Group B streptococcus Status: Acute (4) Syphilis affecting , antepartum: Code(s): O98.119 - Syphilis complicating , unspecified trimester Status: Acute (5) Anemia: Code(s): D64.9 - Anemia, unspecified Status: Acute (6) Delivery by elective section: Code(s): O82 - Encounter for delivery without indication Status: Acute OB - DS: Summary Hospital Course Time spent discussing smoking cessation with patient: 3 to 10 minutes OB Procedures : Ultrasound OB Procedures Intrapartum: (Primary elective for breech presentation ) low cervical, transverse OB Procedures: : None Peripartum Data Delivery Method: Section (Primary elective for breech presentation) Laceration Description: None Episiotomy description: None Procedures: Procedures Operation Date: 03/24/21 09:00 Primary elective low-transverse section for malpresentation-sameera breech and delivery a viable male and placenta complications: none 1: Gender: Male (Ramir) Disposition of : home Status at Discharge Cognitive/behavioral status at discharge: Normal Functional status at discharge: independent ambulation Overall status at discharge: patient is back to baseline Time Spent with Patient Time attestation: Total time spent providing and/or coordinating discharge services: Time spent: Less than 30 minutes Exam Const: General: cooperative HENMT: Head: normal to inspection Eyes: General: appearance normal, both eyes and all related structures Neck: Neck: normal visual inspection Chest: Chest palpation & inspection: normal inspection of the chest Resp: Effort & Inspection: normal respiratory effort Cardio: Rate: regular rate Rhythm: regular rhythm GI: Inspection: normal to inspection : External Female Exam: normal external appearance Back/Spine/Pelvis: Back: no CVA tenderness Skin: General skin exam: normal color Neuro: General: patient oriented x3 Extrem: General: normal to inspection Psych: Appearance: grossly normal DS: Data Data Completed and Pending Pending studies at discharge: Pending at discharge 03/24/21 10:02 Surgical [PTH] Routine Labs on day of discharge: Labs from last 24 hours 03/24/21 03/24/21 03/24/21 07:43 07:43 07:43 WBC 7.8 RBC 4.89 Hgb 10.6 L Hct 37.7 MCV 77.1 L MCH 21.7 L MCHC 28.1 L RDW 24.0 H Plt Count 258 MPV TNP Immature Gran % (Auto) 0.5 Neut % (Auto) 76.3 H Lymph % (Auto) 17.4 L [place] % (Auto) 5.2 Eos % (Auto) 0.3 Baso % (Auto) 0.3 Lymph # (Auto) 1.35 [place] # (Auto) 0.4 Eos # (Auto) 0.0 Baso # (Auto) 0.0 Abs Immat Gran (auto) 0.04 H Absolute Neuts (auto) 5.9 Absolute Nucleated RBC 0.0
--- NOTE | 2021-03-26 15:14 | PC.NURSE ---
1210-RN contacted Dr. Odonnell to inform him baby would not be discharged today due to pending results of baby's RPR along with mother's FTA pending result. Dr. Odonnell stated he was confused and didn't understand the need to wait for these results since when pt's RPR came back positive during she was sent to [facility] and it was confirmed there that the RPR appeared to be a false positive from the previous and one can test positive after a hx of syphilis during . He also didn't understand why the RPR result for baby was taking so long. RN explained that lab waits until they have multiple tubes batched to run the blood test. Dr. Odonnell instructed RN that he would be making a phone call back to her; he then contacted the television and radio repairer automation controls expert today for [facility]. [id number]-Dr. Odonnell returned call back to RN stating that mom and baby would be discharging today and television and radio repairer would be giving RN orders. 1300-RN received orders from [facility] television and radio repairer to discharge baby today.
[2021-03-28 07:52] VITALS: BP 140/75; PULSE 81; RESP 20; TEMP 37.6; O2SAT 100
[2021-03-30 16:00] LABS: Treponema pallidum Ab FTA ABS Reactive (Nonreactive)
== END 2021-03-26 15:45 | disposition home or self-care (01) | DRG 540 ==
LOC: ANHLDR 10:39 → ANHOB2 12:32
PROVIDERS: Admitting Provider Obstetrics & Gynecology; PCP Internal Medicine Infectious Disease; Visit Provider Obstetrics & Gynecology
PROC: 10D00Z1 Extraction of Products of Conception, Low, Open Approach (ICD-10-PCS; CPT 59514; principal; 2021-03-24 09:00)
DX: O32.1XX0 Maternal care for breech presentation, not applicable or unspecified (principal); O99.824 Streptococcus B carrier state complicating childbirth; O99.02 Anemia complicating childbirth; D64.9 Anemia, unspecified; Z3A.39 39 weeks gestation of pregnancy; Z37.0 Single live birth; Z86.19 Personal history of other infectious and parasitic diseases
CPT/HCPCS: 36415; 80307; 85025; 85055; 86592; 86780; 86850; 86900; 86901; 88307; A9270; J1885; J2274; J2370; J2405; J2590; J7120

== ENCOUNTER 2023-10-11 18:36 | Emergency (ER) | payer OTHER, SELFPAY ==
[2023-10-11 18:40] VITALS: BP 132/76; PULSE 65; RESP 20; TEMP 36.6; O2SAT 99
--- NOTE | 2023-10-11 19:21 | ED.ALLEREA ---
HPI - Allergic Reaction General Chief complaint: Allergic Reaction Stated complaint: ALLERGIC REACTION/RASH Time Seen by Provider: 10/11/23 18:49 Source: patient Mode of arrival: ambulatory Limitations: no limitations History of Present Illness HPI narrative: This is a 33-year-old female who presents to the ED with chief complaint of a rash that began yesterday after starting new medication. Patient states that she started Bactrim by her OBGYN for a ?cyst. Patient states that ever since starting the Bactrim she has had a diffuse erythematous rash throughout the arms, legs and torso. States that she went to another facility yesterday was given prednisone and a new antibiotic. Reports the prednisone has not helped much and she is still having itching and burning. She also reports that she has had some dysuria as well. Denies fevers, chills, nausea, vomiting, sore throat. Denies chest pain or shortness of breath Related Data Home Medications Medication Instructions Recorded Confirmed PNV 153-FA 400 mcg-om3 35 mg-dha 1 tablet PO DAILY 03/03/21 03/03/21 25 mg-epa 5 mg-fish oil chew tablet ( Gummies) ferrous sulfate 325 mg (65 mg 325 mg PO DAILY 03/03/21 03/03/21 iron) tablet Allergies Allergy/AdvReac Type Severity Reaction Status Date / Time amoxicillin Allergy Itching Verified 10/11/23 18:41 fluconazole Allergy Hives Verified 10/11/23 18:41 Review of Systems Review of Systems: All systems as dictated in HPI [facility] Past Medical History Medical History Anemia Bacterial vaginosis Candidiasis COVID-19 affecting in third trimester False labor growth restriction malpresentation GBS carrier Spontaneous onset of labor Syphilis affecting , antepartum Term delivered Family History Family History Mother Hypertension Father Lymphoma Social History Social History Smoking status: Never smoker Second hand tobacco smoke exposure: No Alcohol intake: never Substance use: current Substance use type: marijuana Living arrangements: with family Gender identity (if verbalized by the patient): Female Sexual Orientation (if Verbalized by the Patient): Straight or Heterosexual Spiritual care concerns: No Exam Narrative: GENERAL: Well-appearing, well-nourished, and in no acute distress. HEAD: Normocephalic, atraumatic. EYES: PERRLA and EOMI. ENT: Nares clear, no rhinorrhea or epistaxis. Mucous membranes moist. Oropharynx without tonsillar hypertrophy exudate or other lesions. NECK: Supple. No adenopathy or masses. CHEST: No respiratory distress. Clear to auscultation. No wheezes rales or rhonchi HEART: Regular rate and rhythm. No murmur heard. Normal peripheral pulses. ABDOMEN: Soft, nontender, nondistended, normal active bowel sounds. MSK: Normal range of motion. No edema. SKIN: Erythematous patches noted scattered throughout the arms, legs and torso. NEURO: Alert and oriented x3. No focal deficits. PSYCH: Normal mood and affect. : Pelvic exam done with female RN staff engineer present: Scant blood noted in the vaginal vault. No external lesions. No internal lesions. No sloughing of skin. No blisters. Course Vital Signs Vital signs: Vital Signs Temperature 97.9 F 10/11/23 18:40 Pulse Rate 65 10/11/23 18:40 Respiratory Rate 20 10/11/23 18:40 Blood Pressure 132/76 10/11/23 18:40 Pulse Oximetry 99 10/11/23 18:40 Oxygen Delivery Room Air 10/11/23 18:40 Temperature 97.9 F 10/11/23 18:40 Pulse Rate 67 10/11/23 21:24 Respiratory Rate 15 10/11/23 21:24 Blood Pressure 136/82 10/11/23 21:24 Pulse Oximetry 100 10/11/23 21:24 Oxygen Delivery Room Air 10/11/23 18:40 MDM - Allergic Reaction MDM David
[2023-10-11 19:45] LABS: Eosinophils Percent Auto 0.2 % (0-4.4); Hematocrit 39.4 % (37.0-47.0); Immature Granulocyte Absolute 0.02 K/mm3 (0.00-0.031); Immature Granulocyte Percent A 0.4 % (0-0.5); Lymphocytes Absolute Auto 0.21 K/mm3 (0.9-3.2); Lymphocytes Percent Auto 3.8 % (18.3-44.2); Mean Corpuscular HGB Conc 30.5 g/dl (32-36); Mean Corpuscular Hemoglobin 28.3 pg (26-34); Mean Corpuscular Volume 92.9 fl (80-100); Mean Platelet Volume 11.3 fl (7.4-10.4); Monocytes Absolute Auto 0.1 K/mm3 (0.1-0.6); Monocytes Percent Auto 1.8 % (2.6-8.5); Neutrophils Absolute Auto 5.1 K/mm3 (1.3-6.7); Neutrophils Percent Auto 93.8 % (45.5-73.1); Platelet Count Result 201 k/mm3 (150-375); Red Blood Count 4.24 M/mm3 (4.2-5.4); Red Cell Distribution Width 12.9 % (11.5-14.5); White Blood Count 5.5 K/mm3 (4.5-10.0)
[2023-10-11] MEDS: IBUPROFEN 600 MG TABLET PO (19:49)
[2023-10-11] MEDS: ACETAMINOPHEN 325 MG TABLET 650 MG PO (19:50)
[2023-10-11] MEDS: diphenhydrAMINE HCl CAP 25 MG CAPSULE PO (19:50)
[2023-10-11 19:56] LABS: Alanine Aminotransferase 19 U/L (6-35); Albumin Level 4.6 g/dL (3.5-5.1); Alkaline Phosphatase 57 U/L (38-126); Anion Gap 9 mmol/L (4-12); Aspartate Amino Transferase 23 U/L (14-36); Bilirubin,Total 0.5 mg/dL (0.2-1.3); Blood Urea Nitrogen 16 mg/dL (7-17); CRP 3.3 mg/dL (<1.0); Calcium 9.4 mg/dL (8.4-10.2); Carbon Dioxide 23 mmol/L (22-30); Chloride 106 mmol/L (98-107); Estimated CRCL calculation 86 ml/min; Estimated Glomerular Filt Rate > 60; Glucose 164 mg/dL (65-110); Potassium 4.2 mmol/L (3.4-5.0); Sodium 138 mmol/L (137-145)
[2023-10-11 20:14] LABS: Appearance Urine Turbid (Clear); Bacteria Urine 4+ /hpf; Bilirubin Urine Negative (Negative); Blood Urine 3+ (Negative); Color Urine Dark Yellow (Yellow); Glucose Urine UA Negative (Negative); Ketones Urine Trace mg/dL (Negative); Leukocyte Esterase Ur 3+ LEU/UL (Negative); Need Manual Microscopic Reviewed; Nitrate Urine Negative (Negative); Non Pathogenic Casts 0-2; Protein Urine 2+ mg/dL (Negative); RBC Urine 51-100 /hpf (0-2); Specific Grav Ur 1.038 (1.001-1.035); Squamous Epithelial Cell Urine Many /hpf (Few); WBC Urine >100 /hpf (0-3); pH Urine 5.5 (5.0-9.0)
[2023-10-11 20:19] LABS: Add Urine Microscopic? YES
[2023-10-11 21:24] VITALS: BP 136/82; PULSE 67; RESP 15; O2SAT 100
== END 2023-10-11 21:26 | disposition home or self-care (01) ==
PROVIDERS: Emergency Provider Physician Assistant
DX: L27.0 Generalized skin eruption due to drugs and medicaments taken internally (principal); T36.8X5A Adverse effect of other systemic antibiotics, initial encounter
CPT/HCPCS: 36415; 80053; 81001; 85025; 86140; 87086; 99284; A9270

== ENCOUNTER 2024-07-08 11:55 | Observation (INO) | payer OTHER, SELFPAY ==
[2024-07-08 12:31] VITALS: BMI 31.9
--- NOTE | 2024-07-08 12:39 | OBADM ---
This patient, Dotty A Gabo, admitted to the OB room 115 for observation. Patient/family oriented to hospital policies and general routines including ID bracelet, bed and alarms, visiting hours, pain management, procedures, bathroom and other care routines, personal items, smoking policy, room service/diet, and visiting hours. Patient/Family are encouraged to report perceived risks to care and to ask questions if they do not understand what they are told or what they should do.
[2024-07-08 12:42] VITALS: BP 125/82; PULSE 110; RESP 16; TEMP 36.8
[2024-07-08 12:57] LABS: OBXCEM ROM Plus Negative (Negative)
[2024-07-08 13:01] VITALS: BP 128/80; PULSE 88
[2024-07-08 13:31] VITALS: BP 119/70; PULSE 77
[2024-07-08 13:56] LABS: Add Urine Microscopic? YES; Appearance Urine Cloudy (Clear); Bacteria Urine 4+ /hpf; Bilirubin Urine Negative (Negative); Blood Urine Negative (Negative); Color Urine Dark Yellow (Yellow); Glucose Urine UA Negative (Negative); Ketones Urine Trace mg/dL (Negative); Leukocyte Esterase Ur 2+ LEU/UL (Negative); Need Manual Microscopic Reviewed; Nitrate Urine Negative (Negative); Protein Urine 1+ mg/dL (Negative); RBC Urine 0-2 /hpf (0-2); Squamous Epithelial Cell Urine Few /hpf (Few); WBC Urine 51-100 /hpf (0-3); pH Urine 6.5 (5.0-9.0)
[2024-07-08 14:01] VITALS: BP 125/90; PULSE 75
[2024-07-08 14:55] VITALS: BP 124/71; PULSE 85
--- NOTE | 2024-07-30 08:13 | P.PNOB_ITS ---
OB - Triage/Final Diagnosis Visit Information Comments/Additional reasons for admission: I have assessed the risk for this patient, Dotty Ayon, and determined that she would benefit from observation care. Evaluation Laboratory results: Laboratory Tests 07/08/24 07/08/24 12:51 13:13 Urine Color Dark yellow Urine Appearance Cloudy H Urine pH 6.5 Ur Specific [place] 1.020 Urine Protein 1+ H Urine Glucose (UA) Negative Urine Ketones Trace H Ur Blood (Man) Negative Urine Nitrate Negative Urine Bilirubin Negative Urine Urobilinogen 4.0 H Add Ur Microanalysis Reviewed Leukocyte Esterase Rfl 2+ H Urine RBC 0-2 Urine WBC 51-100 H Ur Squamous Epith Cells Few Urine Bacteria 4+ H Urine Casts 6-10 Membranes Rupture Rom plus negative
--- NOTE | 2024-07-30 19:35 | PM.OBTRLD ---
OB - Triage/Final Diagnosis Visit Information Comments/Additional reasons for admission: I have assessed the risk for this patient, Dotty Ayon, and determined that she would benefit from observation care. Evaluation Laboratory results: Laboratory Tests 07/08/24 07/08/24 12:51 13:13 Urine Color Dark yellow Urine Appearance Cloudy H Urine pH 6.5 Ur Specific [place] 1.020 Urine Protein 1+ H Urine Glucose (UA) Negative Urine Ketones Trace H Ur Blood (Man) Negative Urine Nitrate Negative Urine Bilirubin Negative Urine Urobilinogen 4.0 H Add Ur Microanalysis Reviewed Leukocyte Esterase Rfl 2+ H Urine RBC 0-2 Urine WBC 51-100 H Ur Squamous Epith Cells Few Urine Bacteria 4+ H Urine Casts 6-10 Membranes Rupture Rom plus negative
--- NOTE | 2024-08-09 12:00 | PM.OBPNVD ---
OB - PN: Subj Subjective Date/time seen: 08/09/24 12:00 Interval history: heart tracing reviewed contemporaneously with the visit - REACTIVE NONSTRESS TEST OB - PN A/P Time Spent With Patient Time: Total time spent is greater than 50% in coordination of care (as documented) at patient's floor/unit and/or counseling patient:
== END 2024-07-08 15:18 | disposition home or self-care (01) ==
LOC: ANHOBPP 12:03
PROVIDERS: Admitting Provider Obstetrics & Gynecology; Visit Provider Obstetrics & Gynecology
DX: O60.03 Preterm labor without delivery, third trimester (principal); O36.8330 Maternal care for abnormalities of the fetal heart rate or rhythm, third trimester, not applicable or unspecified; Z3A.35 35 weeks gestation of pregnancy
CPT/HCPCS: 81001; 84112; 87086; G0378; G0379

== ENCOUNTER 2024-07-30 11:26 | Outpatient (CLI) | payer OTHER, SELFPAY ==
--- OUTSIDE RECORDS SUMMARY | 2024-07-30 12:28 | XMS_ITS | Referral Summary ---
Author Organization [facility] Address [address] [place] [address] Care Team Providers Care Project Development Coordinator Name Role Phone Unavailable Primary Care Provider Unavailabl e Source Comments [facility],non-owned Affiliates and Associated Physician Practices is amultiple site organization consisting of ambulatory clinics and hospital sitesin [place], [place], [place] and [place]. This disclosure is being madepursuant to the Care Everywhere program and may not contain all information available regarding this patient. Last updated 18.[facility] Allergies Active Allergy Reactions Criticality Noted Date Comments Augmentin Urticaria Medium 11/30/2020 Chest and throat rash Diflucan Urticaria Medium 07/13/2019 Medications * Be aware that medications may not be up to date on this document. Always verify current medications with the patient. Medication Sig Dispensed Refills Start Date End Date Status ondansetron, disintegrating, (ZOFRAN ODT) 4 MG tablet Take 4 mg by mouth every 6 hours as needed for Nausea/Vomiting Allow tablet to dissolve on the tongue Active calcium-vitamin D (OS-YON 500 + D) 500-200 mg-unit tablet Take 1 tablet by mouth once daily Active Vit-Fe Fumarate-FA ( VITAMIN WITH IRON) tablet Take 1 tablet by mouth once daily Active Progesterone 100 MG capsule Take 200 mg by mouth 2 times daily Active labetalol (NORMODYNE; TRANDATE) 100 MG tablet Take 100 mg by mouth once Patient take 50 mg in AM and 50 mg PM if blood pressure is elevated or she feels dizzy. Active Active Problems Problem Noted Date Diagnosed Date Elevated blood pressure read ing without diagnosis of hypertension 11/29/2020 Overview (11/29/2020): 24 hr UA, T. Protein (10/29/20) 290; Creat UA: 1197 (10/27/20) Uric acid: 2.4; Bun 7; creat 0.57 AST 13; ALT 7 H/h/p: 10.0, 34.0, 259 Assessment & Plan (11/30/2020 3:31 PM CDT): Warrants two episodes of elevated BP > 140/90, before 20 weeks gestation, to diagnose with chronic hypertension. Normotensive now without the effect of labetalol. 24 hr urine protein done without urine culture but no evidence of macroproteinuria. Serum labs unremarkable for signs of occult chronic hypertension. Records obtained from [facility] for evaluation of dizziness and lightheadedness on 10/31/20. BP was 121/72 & 126/69--this evaluation was BEFORE Dotty started taking labetalol [she filled the prescription on 10/31/20]. There does not appear to be support for the diagnosis of essential hypertension for this patient. Recommendations 1. Stop labetalol--not currently indicated for antihypertensive use 2. Resume aspirin for preeclampsia risk reduction 3. Check blood pressure daily and record 1. Instructed to notify OB or go to Ob ED if BP >/= 154/100 1. Preeclampsia handout provided 2. Will follow up in 4 weeks to review BP logs Second 11/29/2020 Overview (11/30/2020): AB+, Ab: Neg, Immune, Hbsag-NR, HIV-NR, GBS: Pos VDRL positive HgbA1c 5.0% Assessment & Plan (11/30/2020 1:04 PM CDT): Per review of records LMP dating was certain and concordant with 12 wk US MARION. Recommendations 1. Please send copy of the RPR titer for this patient! Resolved Problems Problem Noted Date Diagnosed Date Resolved Date Positive RPR test 07/10/2019 11/29/2020 Overview (09/16/2019): RPR neg [03/2019]; RPR pos, quant 1:1 [06/17/2019]; TPA reactive [06/17/19] LMP1=MARION 01/26/20 Dating 06/17/19 [id number]=01/26/20 [id number] Social History Tobacco Use Types Packs/Day Years Used Date Smoking Tobacco: Never Smokeless Tobacco: Never Alcohol Use Standard Drinks/Week Comments Not Currently 0 (1 standard drink = 0.6 oz pur e alcohol) Sex and Gender Information Value Date Recorded Sex Assigned at Not on file Gender Identity Not on file Sexual Orientation Not on file Last Filed Vital Signs Vital Sign Reading Time Taken Comments Blood Pressure 115/71 11/30/2020 11:42 AM CDT Pulse 78 11/30/2020 11:42 AM CDT Temperature 37 ??C (98.6 ??F) 10/27/2019 1:14 PM CDT Respiratory Rate 18 07/13/2019 2:04 PM AGRICULTURAL EQUIPMENT OPERATOR Oxygen Saturation 100% 07/13/2019 2:04 PM AGRICULTURAL EQUIPMENT OPERATOR Inhaled Oxygen Concentration - - Weight 68.9 kg (152 lb) 11/30/2020 11:42 AM CDT Height 165.1 cm (5' 5 ) 07/13/2019 8:05 AM AGRICULTURAL EQUIPMENT OPERATOR Body Mass Index 25.29 07/13/2019 8:05 AM AGRICULTURAL EQUIPMENT OPERATOR Functional Status Functional Status Response Date of Assess ment Is person deaf or have serious hearing difficult y? No 07/13/2019 Is person blind or have serious difficulty seein g? No 07/13/2019 Does person have serious dif ficulty walking/climbing stairs? No 07/13/2019 Does person have difficulty dressing/bathing? No 07/13/2019 Does person have difficulty doing errands alone? No 07/13/2019 Cognitive Status Response Date of Assessm ent Does person have difficulty concentrating/remembering/making decisions? No 07/13/2019 Plan of Treatment Not on file Administered Medications Advance Directives * Full Code (Latest Code Status on File) Date Activated Date Inactivated Comments 07/13/2019 8:49 AM 07/13/2019 4:03 PM
--- OUTSIDE RECORDS SUMMARY | 2024-07-30 12:28 | XMS_ITS | CONTINUITY OF CARE DOCUMENT ---
Author Name jacqueline phillips Address Unknown Organization [facility] Address [address] [place] [address] Phone [phone] Care Team Providers Care Bung Dropper Name Role Phone Theresa Hampton MD Unavailable JEAN CLAUDE EASTON MD Unavailable [phone] INSURANCE PROVIDERS Payer name Policy type / Coverage type [place] [employer] party ID [facility] Medicaid 0 [id number]
--- OUTSIDE RECORDS SUMMARY | 2024-07-30 12:28 | XMS_ITS | Clinical Summary ---
Author Organization [facility] [employer] Address [address] [place] [address] Care Team Providers Care Leather Grader Name Role Phone Unavailable Primary Care Provider Unavailabl e Source Comments [facility] [employer],non-owned Affiliates and Associated Physician Practices is amultiple site organization consisting of ambulatory clinics and hospital sitesin [place], [place], [place] and [place]. This disclosure is being madepursuant to the Care Everywhere program and may not contain all information available regarding this patient. Last updated 18.[facility] [employer] Allergies Active Allergy Reactions Criticality Noted Date Comments Augmentin Urticaria Medium 11/30/2020 Chest and throat rash Diflucan Urticaria Medium 07/13/2019 Medications * Be aware that medications may not be up to date on this document. Alwaysverify current medications with the patient. Medication Sig [...] of occult chronic hypertension. Records obtained from [place] for evaluation of dizziness and lightheadedness on [...] reactive [06/17/19] LMP1=MARION 01/26/20 Dating 06/17/19 8w1d=01/26/20 [id number] Family History Medical History Relation Name Comments Diabetes - Type 2 Mother Hypertension Mother Diabetes - Type 2 Sister 1 Relation Name Status Comments Father Maternal Grandfather Maternal Grandmother Mother Alive Paternal Grandfather Paternal Grandmother Sister 1 Alive Sister 2 Alive Sister 3 Alive Social History Tobacco Use Types Packs/Day Years [...] CDT Respiratory Rate 18 07/13/2019 2:04 PM WASTE MANAGEMENT RECYCLING TECHNICIAN Oxygen Saturation 100% 07/13/2019 2:04 PM WASTE MANAGEMENT RECYCLING TECHNICIAN Inhaled Oxygen Concentration - - Weight 68.9 kg (152 lb) 11/30/2020 11:42 AM CDT Height 165.1 cm (5' 5 ) 07/13/2019 8:05 AM WASTE MANAGEMENT RECYCLING TECHNICIAN Body Mass Index 25.29 07/13/2019 8:05 AM WASTE MANAGEMENT RECYCLING TECHNICIAN Plan of Treatment Health Maintenance Due Date Last Done Comments PAP SMEAR 1990 HIV SCREENING 09/06/2006 HEPATITIS C SCREENING 09/02/2009 DTAP/TDAP/TD VACCINES (1 - Tdap) 09/06/2010 HEPATITIS B VACCINE (1 of 3 - 19+ 3-dose series) 09/06/2010 COVID-19 VACCINE ( - 2023-2 5 season) 2024 INFLUENZA VACCINE (#1) 2024 09/08/2014 DEPRESSION SCREENING 07/01/2024 ZOSTER VACCINE (1 of 2) 09/06/2041 HIB VACCINE Aged Out No longer eligi ble based on patient's age to complete this topic HPV VACCINE Aged Out No longer eligi ble based on patient's age to complete this topic MENINGOCOCCAL (Group B) VACCINE Aged Out No longer eligible based on patient's age to complete this topic MENINGOCOCCAL VACCINE Aged Out No micah rosana eligible based on patient's age to complete this topic PNEUMOCOCCAL VACCINE Aged Out No long er eligible based on patient's age to complete this topic Advance Directives * Full Code (Latest Code Status on File) Date Activated Date Inactivated Comments 07/13/2019 8:49 AM 07/13/2019 4:03 PM
--- OUTSIDE RECORDS SUMMARY | 2024-07-30 12:28 | XMS_ITS | Patient Health Summary ---
Author Organization [facility] Address [address] [place] [address] Care Team Providers Care Health Coach Name Role Phone Unavailable Primary Care Provider Unavailabl e Note from [facility],non-owned Affiliates and Associated Physician Practices is amultiple site organization consisting of ambulatory clinics and hospital sitesin [place], [place], [place] and [place]. This disclosure is being madepursuant to the Care Everywhere program and may not contain all information available regarding this patient. Last updated 18.[facility] [employer] Allergies * Augmentin(Urticaria) -Medium Criticality * Diflucan(Urticaria) -Medium Criticality * Amoxicillin(Urticaria) -Medium Criticality,Inactive * Penicillins(Urticaria) -Medium Criticality,Inactive Medications * Be aware that medications may not be up to date on this document. Alwaysverify current medications with the patient. * ondansetron, disintegrating, (ZOFRAN ODT) 4 MG tablet Take 4 mg by mouth every 6 hours as needed for Nausea/Vomiting Allow tablet to dissolve on the tongue * calcium-vitamin D (OS-YON 500 + D) 500-200 mg-unit tablet Take 1 tablet by mouth once daily * Vit-Fe Fumarate-FA ( VITAMIN WITH IRON) tablet Take 1 tablet by mouth once daily * Progesterone 100 MG capsule Take 200 mg by mouth 2 times daily * labetalol (NORMODYNE; TRANDATE) 100 MG tablet Take 100 mg by mouth once Patient take 50 mg in AM and 50 mg PM if blood pressure is elevated or she feels dizzy. Active Problems Problem Noted Date Diagnosed Date Elevated blood pressure read ing without diagnosis of hypertension 11/29/2020 Second 11/29/2020 Resolved Problems Problem Noted Date Diagnosed Date Resolved Date Positive RPR test 07/10/2019 11/29/2020 Social History Tobacco Use Types Packs/Day Years [...] CDT Respiratory Rate 18 07/13/2019 2:04 PM MOTOR VEHICLE LIGHT ASSEMBLER Oxygen Saturation 100% 07/13/2019 2:04 PM MOTOR VEHICLE LIGHT ASSEMBLER Inhaled Oxygen Concentration - - Weight 68.9 kg (152 lb) 11/30/2020 11:42 AM CDT Height 165.1 cm (5' 5 ) 07/13/2019 8:05 AM MOTOR VEHICLE LIGHT ASSEMBLER Body Mass Index 25.29 07/13/2019 8:05 AM MOTOR VEHICLE LIGHT ASSEMBLER Procedures * SONOGRAM - COMPLETE(Performed 11/30/2020) Performed for Second (HCC), Benign essential hypertension, antepartum (HCC) * SONOGRAM - COMPLETE(Performed 10/27/2019) Performed for Positive RPR test * SONOGRAM - COMPLETE(Performed 09/16/2019) Performed for Positive RPR test * TREPONEMA PALLIDUM AB(Performed 07/13/2019) Performed for Positive RPR test * RPR TITER(Performed 07/13/2019) Performed for Positive RPR test * RPR(Performed 07/13/2019) Performed for Positive RPR test * SYPHILIS ANTIBODY CASCADING REFLEX(Performed 07/13/2019) Performed for Positive RPR test * URINALYSIS REFLEX MICROSCOPIC REFLEX CULTURE(Performed 07/13/2019) Performed for Positive RPR test * ANTIBODY IDENTIFICATION(Performed 07/13/2019) Performed for Positive RPR test * TYPE + SCREEN PANEL(Performed 07/13/2019) Performed for Positive RPR test * PROTEIN CREATININE RATIO URINE RANDOM PNL(Performed 07/13/2019) Performed for Positive RPR test * COMPREHENSIVE METABOLIC PANEL(Performed 07/13/2019) Performed for Positive RPR test * CBC W AUTO DIFFERENTIAL(Performed 07/13/2019) Performed for Positive RPR test * SKIN TEST PPD - POINT OF CARE(Performed 02/23/2019) Performed for Encounter for PPD test Results * SONOGRAM - COMPLETE (11/30/2020 10:41 AM CDT) Only the most recent of3 resultswithin the time period is included. Anatomical Region Laterality Modality Other 11/30/2020 10:4 1 AM CDT Narrative 11/30/2020 1:50 PM CDT ? [facility] ? [facility] ?PHONE: ??FAX: Pat. Name: ?JUNO HUERTA Pat. No: ?[id number] Study Date: ?? 11/30/2020 ??10:41am , Age: ? 1990, 30 Pregnancies: ?? 2, Para 1 Height: ? 65 in Weight: ? 143 lb LMP: ?06/27/2020 GA by LMP: ?22w2d GA by US: ? 23w3d ?? MARION: 03/26/2021 GA Selected: ??22w2d (LMP) MARION: ?04/03/2021 Referring MD: Jared Odonnell MD Machine Stone Polisher Apprentice: ??Mary Jenkins, RADHA, RDNACHO CPT4: ? 84322,15894 BMI: ?23.79 Hist/Ind: ? Anatomy ?VDRL positive MEASUREMENTS & AGE ? GROWTH EVALUATION Measurement ??GA ? Range ? Srce %for GA Ratios ----- ---- ------- BPD ??5.8 cm 23w5d (92o3r-54w6w) Hadl BPD 89% FL/BPD 0.70 HC ??21.4 cm 23w3d (57z6w-40c8j) Hadl HC ??81% FL/AC ??0.22 (0.20 - 0.24) AC ??18.7 cm 23w3d (71y9d-67y9t) Hadl AC ??79% HC/AC ??1.14 (1.04 - 1.23) FL ?? 4.0 cm 23w0d (88r3t-99q0p) Hadl FL ??65% CI ? 0.76 (0.70 - 0.86) HL ?? 3.7 cm 23w1d (07z8a-08z9j) Yann HL ??63% Cere 2.7 cm 24w0d (29p8q-04q0y) Hill Cere89% GA for sonogram 23w3d (62u8x-68w0e) ?? Weight Estimate: based on (HL,BPD,HC,AC,FL,Cere) Avg ??Weight: 584 gm (499-669gm) Hadloc ? : 1lbs, 4oz ? Normal: 505 gm (379-632gm) Hadloc ? Wt% ? 89% for 22w2d Cervix: ??Length: 4.2 cm ??Approach: transvaginal ??Funneling: not present Heart Rate: 151 bpm Amniotic Fluid Index: 05.3cm (Deepest Pocket) EVAL, PLACENTA Presentation: cephalic Umbilical Cord: 3 Vessels Placenta: posterior Previa: no previa seen Heart Rate: 151 bpm Amniotic Fluid Volume: normal MATERNAL ANATOMY Right ??Desc: Appears normal Left ??Desc: Appears normal Anatomy!Normal!Abnormal!Suboptimal!Prev. Seen!Comments Cranium ?! ?? x ??! ?! ?! ?! Mdl (CSP/Thal! ?? x ??! ?! ?! ?! Ventricles ?? ! ?? x ??! ?! ?! ?! Choroid Plexu! ?? x ??! ?! ?! ?! Cerebellum ?? ! ?? x ??! ?! ?! ?! Cerebellar Ve! ?? x ??! ?! ?! ?! Cisterna M. ??! ?? x ??! ?! ?! ?! Orbits ? ! ?? x ??! ?! ?! ?! Profile ?! ?? x ??! ?! ?! ?! Nasal Bone ?? ! ?? x ??! ?! ?! ?! Lip ?! ?? x ??! ?! ?! ?! Maxilla ?! ?? x ??! ?! ?! ?! Mandible ? ! ?? x ??! ?! ?! ?! Neck ? ! ?? x ??! ?! ?! ?! Spine ?! ?? x ??! ?! ?! ?! Lungs ?! ?? x ??! ?! ?! ?! 4 Chamber Hea! ?? x ??! ?! ?! ?! LVOT ? ! ?? x ??! ?! ?! ?! RVOT ? ! ?? x ??! ?! ?! ?! 3 Vessel View! ?? x ??! ?! ?! ?! 3 Vessel Trac! ?? x ??! ?! ?! ?! Cross-over ?? ! ?? x ??! ?! ?! ?! Ductal Arch ??! ?! ?! ? x ?! ?! Aortic Arch ??! ?? x ??! ?! ?! ?! Caval View ?? ! ?? x ??! ?! ?! ?! Situs ?! ?? x ??! ?! ?! ?! Diaphragm ?! ?? x ??! ?! ?! ?! Stomach ?! ?? x ??! ?! ?! ?! Liver ?! ?? x ??! ?! ?! ?! Bowel ?! ?? x ??! ?! ?! ?! Kidneys ?! ?? x ??! ?! ?! ?! Bladder ?! ?? x ??! ?! ?! ?! 3 Vessel Cord! ?? x ??! ?! ?! ?! Cord In! ?? x ??! ?! ?! ?! Upper Extremi! ?? x ??! ?! ?! ?! Hands ?! ?? x ??! ?! ?! ?! Lower Extremi! ?? x ??! ?! ?! ?! Feet ? ! ?? x ??! ?! ?! ?! External Whitney! ?! ?! ?! ?!Male appearing Placental Cor! ?! ?x ?? ! ?! ?!Eccentric ?insertion CLINICAL SUMMARY Study Number: 1 A detailed anatomical screen was performed. ??The exam was technically adequate. ??A single fetus is identified in cephalic presentation. ??The measurements today are consistent with appropriate growth. ??The MARION selected is based on LMP and prior outside ultrasound (confirmed). ??The amniotic fluid volume is normal. ??The placenta is posterior. ?? IMPRESSION: Single, live IUP at 22w2d Estimated size concordant with Last menstrual period dating normal amniotic fluid No major malformations are seen or suspected, within the limitations of the exam Sufficiently completed survey Reassuring transvaginal cervical length Ultrasound does not allow detection of all structural or chromosomal abnormalities. ?? ultrasound is limited in the ability to detect or exclude small, cardiac, septal defects. RECOMMEND: Recommend LMP dating Follow up ultrasound in 4 weeks for growth due to transient hypertension Thank you for allowing us the opportunity to care for your patient. Inés Gould MD <Electronic Signature> ??11/30/2020 01:49pm Jared Odonnell MD [facility] ORDERABLES * (ABNORMAL) TREPONEMA PALLIDUM AB (07/13/2019 10:32 AM MOTOR VEHICLE LIGHT ASSEMBLER) [facility] Treponema pallidum Antibody (TP-PA) Reactive( A) Non Reactive 07/14/2019 1:08 PM MOTOR VEHICLE LIGHT ASSEMBLER [facility] ([facility]) Blood BLOOD SPECIMEN / Unknown Lab Venipuncture / Unknown 07/13/2019 10:32 AM MOTOR VEHICLE LIGHT ASSEMBLER 07/13/2019 10:58 AM MOTOR VEHICLE LIGHT ASSEMBLER Narrative [facility] ([facility]) - 07/14/2019 1:08 PM MOTOR VEHICLE LIGHT ASSEMBLER Performed at: ??01 - [facility] [address] ??[id number] Classroom Aide: Capo Sanchez PhD, Phone: ??[phone] Lesli Wahl MD LAB - SEROLOGY ORDER KAYLEE [facility] ([facility]) [address] [place] [address] * (ABNORMAL) RPR TITER (07/13/2019 10:31 AM MOTOR VEHICLE LIGHT ASSEMBLER) [facility] RPR Titer 1:2(A) (none) 07/14/2019 1:05 PM MOTOR VEHICLE LIGHT ASSEMBLER [facility] Blood BLOOD SPECIMEN / Unknown Lab Venipuncture / Unknown 07/13/2019 10:31 AM MOTOR VEHICLE LIGHT ASSEMBLER 07/13/2019 10:58 AM MOTOR VEHICLE LIGHT ASSEMBLER Lesli Wahl MD LAB - CHEMISTRY MILA OSMAN Performing Organization Address [facility] Co de Phone Number [facility] [address] [place] [phone] * (ABNORMAL) SYPHILIS ANTIBODY CASCADING REFLEX (07/13/2019 10:31 AM MOTOR VEHICLE LIGHT ASSEMBLER) Treponema pallidum Antibody REACTIVE( A) Non Reactive 07/13/2019 12:01 PM MOTOR VEHICLE LIGHT ASSEMBLER [facility] Comment:Additional testing r equired for evaluation of syphilis. An RPR has been reflexively ordered and is in progress. Blood BLOOD SPECIMEN / Unknown Lab Venipuncture / Unknown 07/13/2019 10:31 AM MOTOR VEHICLE LIGHT ASSEMBLER 07/13/2019 10:58 AM MOTOR VEHICLE LIGHT ASSEMBLER Lesli Wahl MD LAB - SEROLOGY ORDER KAYLEE Performing Organization Address [facility] de Phone Number [facility] [address] [place] [phone] * (ABNORMAL) RPR (07/13/2019 10:31 AM MOTOR VEHICLE LIGHT ASSEMBLER) RPR REACTIVE( A) Non Reactive 07/14/2019 1:05 PM MOTOR VEHICLE LIGHT ASSEMBLER [facility] Comment: Treponemal antibodies and non-treponemal antibodies detected. Consistent with current syphilis infection. Clinical evaluation should be performed to identify signs, symptoms, or past history of infection. Blood BLOOD SPECIMEN / Unknown Lab Venipuncture / Unknown 07/13/2019 10:31 AM MOTOR VEHICLE LIGHT ASSEMBLER 07/13/2019 10:58 AM MOTOR VEHICLE LIGHT ASSEMBLER Lesli Wahl MD LAB - CHEMISTRY MILA OSMAN Performing Organization Address [facility] Co de Phone Number [facility] [address] [place] [phone] * URINALYSIS REFLEX MICROSCOPIC REFLEX CULTURE (07/13/2019 8:59 AM MOTOR VEHICLE LIGHT ASSEMBLER) Color UA Yellow Straw, Yellow 07/13/2019 9:34 AM [facility] Clarity UA Clear Clear 07/13/2019 9:34 AM [facility] Glucose UA Negative Negative 07/13/2019 9:34 AM [facility] Bilirubin UA Negative Negative 07/13/2019 9:34 AM [facility] Ketone UA Negative Negative 07/13/2019 9:34 AM [facility] Specific [place] UA 1.026 1.005 - 1.030 07/13/2019 9:34 AM [facility] Blood UA Negative Negative 07/13/2019 9:34 AM [facility] pH UA 5.0 5.0 - 8.0 pH 07/13/2019 9:34 AM [facility] Protein UA Negative Negative 07/13/2019 9:34 AM [facility] Urobilinogen UA Negative Negative mg/dL 07/13/2019 9:34 AM [facility] Nitrite UA Negative Negative 07/13/2019 9:34 AM [facility] Leukocyte UA Negative Negative 07/13/2019 9:34 AM [facility] Urine Microscopy Urine microscopy not indicated 07/13/2019 9:34 AM [facility] Reflex Status Culture not indicated 07/13/2019 9:34 AM [facility] Urine URINE SPECIMEN OBTAINED BY CLEAN CATCH PROCEDURE / Unknown Collection / Unknown 07/13/2019 8:59 AM MOTOR VEHICLE LIGHT ASSEMBLER 07/13/2019 8:59 AM [facility] Narrative [facility] - 07/13/2019 9:34 AM [facility] Lesli Wahl MD LAB - URINALYSIS ORD ERABLES [facility] [address] [place] [phone] * TYPE + SCREEN PANEL (07/13/2019 8:15 AM [facility]) ABO AB 07/13/2019 10:20 AM [facility] Rh Type Positive 07/13/2019 10:20 AM [facility] Comment:History checked. Col lect retype. Antibody Screen Positive 07/13/2019 10:20 AM [facility] Blood Bank BLOOD SPECIMEN / Unknown Venipuncture / Unknown 07/13/2019 8:15 AM MOTOR VEHICLE LIGHT ASSEMBLER 07/13/2019 9:00 AM MOTOR VEHICLE LIGHT ASSEMBLER Lesli Wahl MD LAB - BLOOD BANK ORD ERABLES [facility] [address] [place] [address] * ANTIBODY IDENTIFICATION (07/13/2019 8:15 AM MOTOR VEHICLE LIGHT ASSEMBLER) Pathologist [facility] Antibody Identification Anti-Michelle 07/13/2019 10:34 AM MOTOR VEHICLE LIGHT ASSEMBLER [facility] Blood Bank BLOOD SPECIMEN / Unknown Venipuncture / Unknown 07/13/2019 8:15 AM MOTOR VEHICLE LIGHT ASSEMBLER 07/13/2019 9:00 AM MOTOR VEHICLE LIGHT ASSEMBLER Lesli Wahl MD LAB - BLOOD BANK ORD ERABLES Performing Organization Address [facility] Co de Phone Number [facility] [address] [place] [address] * (ABNORMAL) CBC W AUTO DIFFERENTIAL (07/13/2019 8:15 AM MOTOR VEHICLE LIGHT ASSEMBLER) WBC 7.5 4.4 - 10.7 x10E9/L 07/13/2019 9:15 AM [facility] WBC Corrected 07/13/2019 9:15 AM [facility] RBC 4.60 3.80 - 5.20 x10E12/L 07/13/2019 9:15 AM [facility] Hemoglobin 11.4(L) 12.0 - 15.6 gm/dL 07/13/2019 9:15 AM [facility] Hematocrit 38.7 35.9 - 45.5 % 07/13/2019 9:15 AM [facility] MCV 84.1 80.7 - 98.3 fl 07/13/2019 9:15 AM [facility] MCH 24.8(L) 26.7 - 34.0 pg 07/13/2019 9:15 AM [facility] MCHC 29.5(L) 30.8 - 35.9 gm/dL 07/13/2019 9:15 AM [facility] Platelet Count 216 153 - 416 x10E9/L 07/13/2019 9:15 AM [facility] RDW-CV 15.4(H) 12.1 - 14.9 % 07/13/2019 9:15 AM [facility] MPV 12.3 9.4 - 12.9 fl 07/13/2019 9:15 AM [facility] Neutrophils % 78.2(H) 44.0 - 73.0 % 07/13/2019 9:15 AM [facility] Lymphocytes % 15.4(L) 20.0 - 43.0 % 07/13/2019 9:15 AM [facility] Monocytes % 4.7(L) 5.0 - 13.0 % 07/13/2019 9:15 AM [facility] Eosinophils % 0.5 0.0 - 6.0 % 07/13/2019 9:15 AM [facility] Basophils % 0.3 0.0 - 2.0 % 07/13/2019 9:15 AM [facility] Immature Granulocytes 0.9 0 - 1 % 07/13/2019 9:15 AM [facility] Neutrophil Absolute 5.87 2.01 - 7.14 x10E9/L 07/13/2019 9:15 AM [facility] Lymphocytes Absolute 1.16 1.07 - 3.94 x10E9/L 07/13/2019 9:15 AM [facility] Monocytes Absolute 0.35 0.26 - 1.07 x10E9/L 07/13/2019 9:15 AM [facility] Eosinophils Absolute 0.04 0 - 0.47 x10E9/L 07/13/2019 9:15 AM [facility] Basophils Absolute 0.02 0 - 0.08 x10E9/L 07/13/2019 9:15 AM [facility] Immature Granulocytes Absolute 0.07(H) 0.00 - 0.06 x10E9/L 07/13/2019 9:15 AM [facility] nRBC Auto 0 /100 WBC 07/13/2019 9:15 AM [facility] Blood BLOOD SPECIMEN / Unknown Venipuncture / Unknown 07/13/2019 8:15 AM MOTOR VEHICLE LIGHT ASSEMBLER 07/13/2019 9:05 AM MOTOR VEHICLE LIGHT ASSEMBLER Lesli Wahl MD LAB - HEMATOLOGY ORD ERABLES [facility] [address] [place] [address] * (ABNORMAL) COMPREHENSIVE METABOLIC PANEL (07/13/2019 8:15 AM [facility]) Glucose 84 70 - 105 mg/dL 07/13/2019 9:44 AM [facility] Sodium 135(L) 136 - 145 mmol/L 07/13/2019 9:44 AM [facility] Potassium 3.6 3.5 - 4.7 mmol/L 07/13/2019 9:44 AM [facility] Chloride 103 98 - 107 mmol/L 07/13/2019 9:44 AM [facility] CO2 22(L) 23 - 31 mmol/L 07/13/2019 9:44 AM [facility] Calcium 9.8 8.4 - 10.4 mg/dL 07/13/2019 9:44 AM [facility] Anion Gap 10 8 - 16 mmol/L 07/13/2019 9:44 AM [facility] BUN 8 7 - 18.7 mg/dL 07/13/2019 9:44 AM [facility] Creatinine 0.68 0.57 - 1.11 mg/dL 07/13/2019 9:44 AM [facility] Alkaline Phosphatase 63 40 - 150 U/L 07/13/2019 9:44 AM [facility] ALT 10 0 - 61 U/L 07/13/2019 9:44 AM [facility] AST 15 5 - 34 U/L 07/13/2019 9:44 AM [facility] Protein Total 8.3 6.4 - 8.3 gm/dL 07/13/2019 9:44 AM [facility] Albumin 4.4 3.5 - 5.2 gm/dL 07/13/2019 9:44 AM [facility] Bilirubin Total 0.4 0.2 - 1.0 mg/dL 07/13/2019 9:44 AM [facility] eGFR by MDRD >60 >60 mL/min/1.7 3m2 07/13/2019 9:44 AM [facility] eGFR by MDRD >60 >60 mL/min/1.7 3m2 07/13/2019 9:44 AM [facility] Blood BLOOD SPECIMEN / Unknown Venipuncture / Unknown 07/13/2019 8:15 AM MOTOR VEHICLE LIGHT ASSEMBLER 07/13/2019 9:04 AM MOTOR VEHICLE LIGHT ASSEMBLER Lesli Wahl MD LAB - CHEMISTRY MILA OSMAN Performing Organization Address [facility] Co de Phone Number [facility] [address] [place] [phone] * (ABNORMAL) PROTEIN CREATININE RATIO URINE RANDOM PNL (07/13/2019 8:15 AM MOTOR VEHICLE LIGHT ASSEMBLER) Protein Urine 23.2(H) <11.9 mg/dL 07/13/2019 9:45 AM MOTOR VEHICLE LIGHT ASSEMBLER [facility] Creatinine Urine 226.45 mg/dL 07/13/2019 9:45 AM [facility] Protein/Creatin ine Ratio Urine 0.10 07/13/2019 9:45 AM [facility] Urine URINE SPECIMEN OBTAINED BY CLEAN CATCH PROCEDURE / Unknown Collection / Unknown 07/13/2019 8:15 AM MOTOR VEHICLE LIGHT ASSEMBLER 07/13/2019 9:02 AM MOTOR VEHICLE LIGHT ASSEMBLER Lesli Wahl MD LAB - URINE CHEMISTR Y ORDERABLES Performing Organization Address [facility] Co de Phone Number [facility] [address] [place] [address] * SKIN TEST PPD - POINT OF CARE (02/23/2019 11:48 AM CDT) PPD 0mm normal, ppd placed on 02/21/19 @ 10:40am, ppd read on 02/23/19 @ 11:47am. Other MISCELLANEOUS SAMPLE S / Unknown 02/23/2019 11:48 AM CDT Cathleen Ho DIRECTOR [employer]GETABLE HARVEST MACHINE OPERATOR LAB - POINT OF CA RE ORDERABLES
--- OUTSIDE RECORDS SUMMARY | 2024-07-30 12:28 | XMS_ITS | Clinical Summary ---
Author Organization [facility] Address [address] [place] [id number] Care Team Providers Care Electrical Repairer Name Role Phone Unavailable Primary Care Provider Unavailabl e Social History Tobacco Use Types Packs/Day Years Used Date Smoking Tobacco: Never Assessed Comments Unknown Sex and Gender Information Value Date Recorded Sex Assigned at Not on file Legal Sex Female 11:20 AM CDT Gender Identity Not on file Sexual Orientation Not on file Plan of Treatment Health Maintenance Due Date Last Done Comments Hepatitis C Virus (HCV) Screening 1991 Hepatitis B Immunization (1 of 3 - 19+ 3-dose series) 09/06/2010 Pap Smear 09/06/2012 Cervical Cancer Screening (CCS) 09/06/2021 HPV/Cotest 09/06/2021 Influenza Immunization (#1) 2024 SARS-COV-2 Immunization ( season) 2024 Respiratory Syncytial Virus (RSV) Immunization (Adult) (1 - 1-dose 75+ series) 09/06/2066 DTaP/Tdap/Td Immunization Discontinued 2020, 11/11/2019 TdaP Immunization Completed 12/21/2020, 11/11/2019 Meningococcal Immunization (ACWY) Aged Out No longer eligible based on patient's age to complete this topic Pneumococcal Immunization Combined Aged Out No longer eligible based on patient's age to complete this topic Rotavirus Immunization Aged Out No lo nger eligible based on patient's age to complete this topic
--- OUTSIDE RECORDS SUMMARY | 2024-07-30 12:28 | XMS_ITS | Clinical Summary ---
Author Organization [facility] Address [address] [place] [address] Phone Care Team Providers Care Water Resource Agent Name Role Phone Unavailable Primary Care Provider Unavailabl e Allergies Active Allergy Reactions Criticality Noted Date Comments Penicillins Hives High 10/14/2023 Skin test was ok 2020 Sulfa (Sulfonamide Antibiotics) Hives High 10/14/2023 Medications hydrocortisone (HYTONE) 2.5 % Cream Apply to affected area 2 times daily. 30 Gram 10/16/2023 2:14 PM CDT 4 Active carboxymethylce llulose sodium (REFRESH) 0.5 % solution Administer 2 Drops in both eyes 2 times daily as needed for Discomfort. 15 mL 4 Active Active Problems Problem Noted Date Diagnosed Date Drug reaction 10/14/2023 Rash 10/14/2023 Encounters Date Type Department Care Team Description 07/28/2024 External Device Data [facility] Provider, Abstract 07/22/2024 External Device Data [facility] Provider, Abstract 07/22/2024 External Device Data [facility] Provider, Abstract 06/02/2024 External Device Data [facility] Provider, Abstract 05/12/2024 External Device Data [facility] Provider, Abstract 05/04/2024 External Device Data [facility] Provider, Abstract 04/29/2024 External Device Data [facility] Provider, Abstract from Last 3 Months Family History Medical History Relation Name Comments Cancer Father lymphoma Multiple Sclerosis Sister Relation Name Status Comments Father Mother Alive Sibling sister Alive Sister Alive Social History Tobacco Use Types Packs/Day Years Used Date Smoking Tobacco: Never Tobacco Cessation:Counseling Given: Not Answered Alcohol Use Standard Drinks/Week Comments Not Asked 0 (1 standard drink = 0.6 oz pur e alcohol) occasionally Feeling Safe Answer Date Recorded Are you in a relationship wi th someone who hurts you emotionally and/or physically? No 10/14/2023 Food Insecurity Answer Date Recorded Social/Environmental Concerns No concerns Transportation Needs Answer Date Record ed Social/Environmental Concerns No concerns Housing Stability Answer Date Recorded Social/Environmental Concerns No concerns Utility Needs Answer Date Recorded Social/Environmental Concerns No concerns Education Answer Date Recorded What is the highest level of school you have completed or the highest degree you have received? High school graduate 10/14/2023 Comments No Sex and Gender Information Value Date Recorded Sex Assigned at Not on file Legal Sex Female 1:12 PM CDT Gender Identity Not on file Sexual Orientation Not on file Occupation Industry Job Start Date Job End Date not working Not on file Not on file Not on file Last Filed Vital Signs Vital Sign Reading Time Taken Comments Blood Pressure 143/103 10/16/2023 9:05 AM CDT Pulse 65 10/16/2023 9:05 AM CDT Temperature 36.9 ??C (98.5 ??F) 10/16/2023 9:05 AM CD T Respiratory Rate 18 10/16/2023 9:05 AM CDT Oxygen Saturation 98% 10/16/2023 9:05 AM CDT Inhaled Oxygen Concentration - - Weight 68 kg (150 lb) 10/14/2023 1:25 PM CDT Height 162.6 cm (5' 4 ) 10/14/2023 1:25 PM CDT Body Mass Index 25.75 10/14/2023 1:25 PM CDT Plan of Treatment Health Maintenance Due Date Last Done Comments HEPATITIS B VACCINES (1 of 3 - 19+ 3-dose series) 09/06/2010 CERVICAL CANCER SCREENING 09/06/2021 INFLUENZA VACCINE (#1) 2024 09/08/2014 DTAP/TDAP/TD VACCINES (3 - T d or Tdap) 12/21/2030 12/21/2020, 11/11/2019 HPV VACCINES Completed 04/30/2019, 09/16/2018, 03/05/2006 PNEUMOCOCCAL VACCINE 0-64 YEARS Aged Out No longer eligible b ased on patient's age to complete this topic Insurance [employer] [place] [facility] [employer] [place] [employer] (INTERNAL) [facility] Advance Directives For more information, please contact: [phone] * Full Code (Latest Code Status on File) Date Activated Date Inactivated Comments 10/14/2023 8:02 PM 10/16/2023 3:27 PM
--- OUTSIDE RECORDS SUMMARY | 2024-07-30 12:28 | XMS_ITS | Encounter Summary ---
Author Organization [facility] [facility] Address [address] [place] [address] Care Team Providers Care Breaker Mechanic Name Role Phone Unavailable Primary Care Provider Unavailabl e Encounter Details Date Type Department Care Team (Late st Contact Info) Description 07/28/2024 External Device Data [facility] Provider, Abstract NO ADDRESS ON FILE Social History Tobacco Use Types Packs/Day Years Used Date Smoking Tobacco: Never Alcohol Use Standard Drinks/Week Comments Not Asked [...] file Not on file Not on file documented as of this encounter Plan of Treatment Not on file documented as of this encounter Visit Diagnoses Not on filedocumented in this encounter
--- OUTSIDE RECORDS SUMMARY | 2024-07-30 12:29 | XMS_ITS | Data Portability ---
Author Organization [facility] Address [address] [place] [address] [place] [address] Assessment Encounter Date Assessment Date Assessment LastModified by Organization Details LastModified Time 06/04/2024 06/04/2024 Patient is ___weeks . Discussed plan. Not available 06/04/2024 10:13:31 06/25/2024 06/25/2024 Patient is ___weeks . Discussed plan. Not available 06/25/2024 12:36:57 07/14/2024 07/14/2024 Patient is ___weeks . Discussed plan. Not available 07/14/2024 11:28:04 07/23/2024 07/23/2024 Patient is ___weeks . Discussed plan. Not available 07/23/2024 10:51:02 Plan of Treatment Reminders Order Date Submit Date Provider Last Modified By Organization Details Last Modified Time Details Appointments SURG CSection 2024 07:30A Madie MACHADO MD Not available Not available Not available Lab None recorded. Referral None recorded. Procedures None recorded. Surgeries section (SURG) [email or web address] [place] [address] Surgery [facility], [address], [place], [address], 07/14/2024 12:23:03 Imaging US, obstetric , limited 2023 024 [email or web address] [place], [facility] [address], [address], [place], [address], 06/04/2024 22:56:20 Medication Orders Diflucan 150 mg tablet 2024 025 [id number], [address], [place], [address], 07/23/2024 10:53:41 Patient TargetsNo targets recorded. Patient InstructionsNo instructions recorded. Reason for Referral None Reported. Results Created Date Observation Date Name Description Value Unit Range Abnormal Flag Note LastModifiedBy Organization Detail LastModifiedTime 05/19/20 24 05/19/2024 HEMAT OCRIT (HCT) HCT 33.5 % (based on docume nted legal sex) 34.0-4 5.0 low Not Available [facility] (Lab) [address], [place], [address], 05/20/2024 10:31:40 05/19/20 24 05/19/2024 HEMOG LOBIN (HGB) HGB 9.8 g/dL (based on docume nted legal sex) 11.6-1 5.4 low Not Available [facility] (Lab) [address], [place], [address], 05/20/2024 10:31:41 05/19/20 24 05/19/2024 GTT - GESTA WIL L SCREE N, ACOG OB glucose, 1 hour screen 153 mg/dL 70-135 high Not Available [facility] (Lab) [address], [place], [address], 05/20/2024 10:31:41 05/19/20 24 05/19/2024 HIV 1/2 ANTIG EN/AN TIBOD Y, REFLE X CONFI RMATI ON HIV antigen/anti body Nonrea ctive nonrea ctive HIV-1 antig en and HIV-1 /HIV- 2 antib odies were not detec gilbert. No labor atory evide nce of HIV infec tion. Not Available [facility] (Lab) [address], [place], [address], 05/20/2024 10:31:41 05/19/20 24 05/19/2024 RPR SCREE N, REFLE X TITER /CONF IRMAT ION RPR screen Nonrea ctive nonrea ctive Not Available [facility] (Lab) [address], [place], [address], 05/20/2024 10:31:41 05/25/20 24 05/25/2024 GTT - GESTA WIL L, 3 HOUR, ACOG glucose, fasting acog 66 mg/dL 70-94 low Not Available [facility] (Lab) [address], [place], [address], 05/26/2024 03:55:47 05/25/20 24 05/25/2024 GTT - GESTA WIL L, 3 HOUR, ACOG glucose, 1 hour acog 161 mg/dL 70-179 Not Available [facility] (Lab) [address], [place], [address], 05/26/2024 03:55:47 05/25/20 24 05/25/2024 GTT - GESTA WIL L, 3 HOUR, ACOG glucose, 2 hour acog 139 mg/dL 70-154 Not Available [facility] (Lab) [address], [place], [address], 05/26/2024 03:55:47 05/25/20 24 05/25/2024 GTT - GESTA WIL L, 3 HOUR, ACOG glucose, 3 hour acog 91 mg/dL 70-139 Not Available [facility] (Lab) [address], [place], [address], 05/26/2024 03:55:47 07/14/19 25 07/14/2024 CULTU RE: GROUP B STREP SCREE N, REFLE X SUSCE PTIBI LITY result report SEE RESULT S BELOW Test: Cultu re: Group B Strep , Refle x Susce ptibi lity ([facility]/ [facility] ) Speci men Sourc e: Vagin a/Rec seda Speci men Type: Vagin al/Re ctal Speci men Date: 2024 1113 Resul t Date: 2024 1057 Resul t Statu s: Final resul t Abnor mal: No Resul ting Lab: [facility] [address] [facility] [address] Tel: [phone] CULTU RE ----- ----- ----- --- No Group B strep isola gilbert at 2 days (tasneem ctive broth enhan cemen t) Not Available [facility] (Lab) [address], [place], [address], 07/17/2024 12:00:29 06/04/20 24 06/04/2024 US, obste tric, limit ed No observ ation record ed. [facility] [address], [place], [address], 06/04/2024 12:55:39 06/04/20 24 06/04/2024 , obste tric, limit ed No observ ation record ed. [email or web address] [address], [facility], [place], [address], 06/04/2024 11:44:42 Result Notes None recorded. Problems Name Problem SNOMED Code Status Onset Date Resolution Date Notes Provider Name and Address Organization Details Recorded Time History of syphilis 26094909432 28185 Active 2023 Khloe Christiansen null, [facility] 4 20:47:37 Pregnanc y 29813278 Active 2023 Teresa Interiano null, [facility] 4 11:23:18 Deliveri es by 062722836 Active to repeat Andrea Machado MD [address], [place], [address], [facility] 4 11:53:52 Pregnanc y-induce d hyperten amber 95885601 Active HISTORIC Andrea Machado MD [address], [place], [address], [place] [facility] 4 11:33:46 Anemia 117158342 Active 2023 1 tab twice daily Leslie Nunes [facility], [facility] 4 10:44:00 [facility] emia 147932173 Active Leslie Nunes [facility] 4 09:58:04 Problem Notes None recorded. Procedures Surgical History Date Name Laterality Status Provider Name and Address Organization Details Recorded Time 1 section completed Khloe Christiansen [facility] 02/26/2024 20:44:20 Imaging Results Imaging Date Name Status LastModified by Organiz ation Details LastModified Time 06/04/2024 US, obstetric, limited completed [facility] [address], [place], [address], 06/04/2024 12:55:39 06/04/2024 US, obstetric, limited completed [email or web address] [address], [place], [address], 06/04/2024 11:44:42 Procedure Notes None recorded. Medical Equipment None Reported. Allergies Allergen ID Allergen Name Allergen Category Reaction Reaction Severity Criticality Documentation Date Start Date Code Code System Note Provider Name and Address Organization Details Recorded Time 28057 Product containin g penicilli n and antibioti c (product) medicatio n Not available Not available Not available 02/26/2024 54560 05 SNOMED Khloe Christiansen [facility] 4 20:46:01 97306 amoxicill in medicatio n Not available Not available Not available 02/26/2024 723 RxNorm Khloe lowe [facility] 4 20:46:09 71577 Substance with sulfonami de structure and antibacte rial mechanism of action (substanc e) medicatio n Not available Not available Not available 02/26/2024 94059 8003 SNOMED Khloe Christiansen [facility], [facility] 4 20:46:16 20261 fluconazo le medicatio n itching Not available Not available 07/23/2024 4450 RxNorm Teresa Interiano [facility], [facility] 5 10:53:29 Medications Name Sig Start Date Stop Date Status Note LastModified by Organization Details LastModified Time amoxicillin 500 mg capsule 02/25 completed Not Available Not Available Not Available clindamycin HCl 300 mg capsule TAKE 1 CAPSULE BY MOUTH EVERY 6 HOURS FOR 10 DAYS 02/25 completed Not Available Not Available Not Available azithromyci n 250 mg tablet 02/25 completed Not Available Not Available Not Available fluconazole 150 mg tablet TAKE 1 TABLET BY MOUTH EVERY OTHER DAY 07/23 completed Not Available Not Available Not Available meloxicam 15 mg tablet 02/27 completed Not Available Not Available Not Available metronidazo le 0.75 % (37.5 mg/5 gram) vaginal gel INSERT 1 APPLICATO R FULL VAGINALLY EVERY NIGHT AT BEDTIME FOR 5 DAYS 02/25 completed Not Available Not Available Not Available ondansetron HCl 4 mg tablet TAKE 1 TABLET BY MOUTH EVERY 8 HOURS 02/25 completed Not Available Not Available Not Available prednisone 20 mg tablet TAKE 3 TABLETS BY MOUTH DAILY FOR 4 DAYS 02/25 completed Not Available Not Available Not Available terconazole 0.8 % vaginal cream INSERT 1 APPLICATO RFUL PER VAGINA X 3 DAYS AT BEDTIME 02/25 completed Not Available Not Available Not Available metronidazo le 500 mg tablet TAKE 1 TABLET BY MOUTH TWICE A DAY WITH MEALS FOR 7 DAYS 02/25 completed Not Available Not Available Not Available acetaminoph en 300 mg-codeine 30 mg tablet TAKE 1 TABLET BY MOUTH FOUR TIMES A DAY NEEDED FOR PAIN 02/25 completed Not Available Not Available Not Available sulfamethox azole 800 mg-trimetho prim 160 mg tablet TAKE 1 TABLET BY MOUTH EVERY 12 HOURS FOR 5 DAYS 02/25 completed Not Available Not Available Not Available ondansetron 8 mg disintegrat ing tablet Place 1 tablet twice a day by transling ual route. 06/04 completed Not Available Not Available Not Available baclofen 20 mg tablet 02/27 completed Not Available Not Available Not Available oxycodone-a cetaminophe n 5 mg-325 mg tablet 02/25 completed Not Available Not Available Not Available hydrocortis one 2.5 % topical cream 02/27 completed Not Available Not Available Not Available ondansetron 4 mg disintegrat ing tablet ALLOW 2 TABLETS TO DISSOLVE ON TOP OF THE TONGUE TWICE A DAY 05/19 completed Not Available Not Available Not Available itraconazol e 100 mg capsule TAKE 2 CAPSULES BY MOUTH EVERY DAY 02/27 completed Not Available Not Available Not Available nitrofurant oin monohydrate /macrocryst als 100 mg capsule TAKE 1 CAPSULE BY MOUTH EVERY 12 HOURS FOR 5 DAYS 07/14 completed Not Available Not Available Not Available active Not Available Not Avai lable Not Available Vitals Date Recorded Body weight Systolic blood pressure Diastolic blood pressure Provider Name and Address Organization Details Last Updated DateTime 06/04/2024 37783.4418 6 g 139 mm[Hg] 82 mm[Hg] [facility] 06/04/2024 10:18:41 Date Recorded Body weight Systolic blood pressure Diastolic blood pressure Provider Name and Address Organization Details Last Updated DateTime 06/25/2024 28628.1808 2 g 138 mm[Hg] 80 mm[Hg] [facility] 06/25/2024 12:37:58 Date Recorded Body height Body mass index (BMI) Body weight Systolic blood pressure Diastolic blood pressure Provider Name and Address Organization Details Last Updated DateTime 07/14/2024 162.56 cm 32.8 kg/m2 70411.14 g 133 mm[Hg] 77 mm[Hg] [facility] 11:35:01 Date Recorded Body weight Systolic blood pressure Diastolic blood pressure Provider Name and Address Organization Details Last Updated DateTime 07/23/2024 94500.5121 5 g 136 mm[Hg] 77 mm[Hg] Teresa Jaydon [facility] 07/23/2024 10:53:05 Social History Question Answer Notes LastModified by Organizat ion Details LastModified Time Tobacco Smoking Status Never Smoker Khloe Christiansen mynor, [facility] 02/26/2024 20:43:30 What Is Your Level Of Alcohol Consumption? None [email or web address] Information not available 02/26/2024 If You Are , What Was Your Level Of Alcohol Consumption Prior To ? Occasional [email or web address] Information not available 02/26/2024 Are You Blind Or Do You Have Difficulty Seeing? No [email or web address] Information n ot available 02/26/2024 What Is Your Level Of Caffeine Consumption? Occasional [email or web address] Information not available 02/26/2024 In The 14 Days Before Symptom Onset, Have You Had Close Contact With A Laboratory-confirm ed COVID-19 While That Case Was Ill? No [email or web address] Information n ot available 02/26/2024 In The 14 Days Before Symptom Onset, Have You Had Close Contact With A Person Who Is Under Investigation For COVID-19 While That Person Was Ill? No Information not available 02/26/2024 Have You Been To An Area Known To Be High Risk For COVID-19? No [email or web address] Information not available 02/26/2024 Are You Deaf Or Do You Have Serious Difficulty Hearing? No [email or web address] Information not available 02/26/2024 What Type Of Diet Are You Following? REGULAR [email or web address] Information n ot available 02/26/2024 Do You Have Smoke And Carbon Monoxide Detectors In Your Home? Yes [email or web address] Information not available 02/26/2024 Do You Feel Stressed (tense, Restless, Nervous, Or Anxious, Or Unable To Sleep At Night)? [id number] Information not available 02/26/2024 Do You Use Any Illicit Or Recreational Drugs? No [email or web address] Information not available 02/26/2024 Do You Use Sunscreen Routinely? Yes [email or web address] Information not available 02/26/2024 Has Tobacco Cessation Counseling Been Provided? No [email or web address] Information not available 02/26/2024 Do You Or Have You Ever Used Any Other Forms Of Tobacco Or Nicotine? No [email or web address] Information not available 02/26/2024 Sex: Unknown Functional Status Question Answer Note LastModified by Organizat ion Details LastModified Time Do you have difficulty walking or climbing stairs? No [email or web address] Information not available 02/26/2024 Are you able to walk? YESWOREST [email or web address] Information not available 02/26/2024 Are you able to care for yourself? Yes [email or web address] Information not available 02/26/2024 Do you have difficulty dressing or bathing? No Information not available 02/26/2024 What is your exercise level? Occasional [email or web address] Information not available 02/26/2024 Mental Status None recorded. Family History Relationship Description Onset Age of this Age Resolved Age Notes LastModified by Organization Details LastModified Time Mother Hypertensive disorder [email or web address] Not available 02/25 20:42:46 Sister Hypertensive disorder [email or web address] Not available 02/25 20:42:46 Sister Diabetes mellitus [email or web address] Not available 02/25 20:42:54 Medical History Condition Response Allergies (Food, seasonal, environmental ) N Other N Blood Transfusion N Drug/Latex Allergies/Reactions Y Breast Cancer N Dermatologic Disorders N Lung Disease N Defects or Inherited Disease N Breast Problem N Gestational Diabetes N Hematologic disorders N Anesthesia Complications N History of STI Y Deep Vein Thrombosis N Polycystic ovary syndrome N Anxiety Disorder N Autoimmune disease N Arthritis N Infertility N Polyps N Acid Reflux (GERD) N History of abnormal pap N Cancer N Stroke N Varicosities N Neurologic/Epilepsy N Endometriosis N High Cholesterol N Headaches N Fibromyalgia N Kidney Disease N Heart Problems N Kidney or Bladder Problems N Thyroid Problems N GI Problems N Eating Disorder N Anemia N Art (IVF or FET) N Psychiatric Illness N Ovarian Cancer N Diabetes N Pulmonary (TB, Asthma) N Hepatitis/Liver Disease N No Past Medical History N Eczema N Urinary Tract Infection N Abuse/Domestic Violence N Asthma N Trauma/Violence N Depression/ depression N Heart Disease N Pre-Eclampsia N Hypertension N Osteoporosis N Thrombophilias N Gynecological History Statement/Question Response Abnormal Pap N Date of LMP 11/06/2023 STIs/STDs Y Was last menstrual period normal Y HPV Vaccine Y Current Control Method Are cycles usually normal Y Date of Last Colonoscopy Sexually Active? Y Menses Monthly Y Date of DEXA bone scan Age of first menstrual cycle 16 Date of Last Pap Smear Sexual Problems? N LMP Approximate Obstetrics History GPAL:G 3 P 2 0 0 2 Type Value Full Term 2 Living 2 Total 3 Past Encounters Encounter ID Performer Location Encounter Start Date Encounter Closed Date Diagnosis/Indication Diagnosis SNOMED-CT Code Diagnosis ICD10 Code Diagnosis Note [id number] Christina Huston [place] [address] [address] 02/14/2024 09:25:16 02/14/2024 10:08:05 [id number] India Subramanian [facility] [address],[place] [address] 02/14/2024 09:35:56 02/14/2024 16:01:28 Amenorrhea 65745714 N91.2 reviewed US, discussed ovarian cystif any increase pain to re- evaluate sooner otherwise f/u [address] kumar udonte vitaminpla nning rpt sectionpap up to dateeducat ion and precaution s Umbilical hernia 9941042 07 K42.9 Venereal d isease screening 788845629 Z11.3 [id number] Andrea Machado MD [place] [address],[place] [address] 02/28/2024 10:48:27 02/28/2024 12:08:19 Routine care 500388186 Z34.90 [id number] [facility] [address],[place] [address] 03/26/2024 11:02:02 03/26/2024 12:18:08 screening for malformation 681187352 Z36.3 Z3A.20 [id number] Andrea Machado MD [place] [address],[place] [address] 03/26/2024 11:02:23 03/26/2024 13:38:18 Nausea and vomiting 92255477 R11.2 Routine an tenatal care 334898875 Z34.90 [id number] Andrea Machado MD [place] [address],[place] [address] 04/21/2024 10:07:04 04/21/2024 10:47:13 Routine care 129414936 Z34.90 [id number] MD Dionte Alcantar [address],[place] [address] 05/19/2024 10:59:01 05/19/2024 11:45:45 Routine care 512150283 Z34.90 [id number] Andrea Machado MD [place] [address],[place] [address] 06/04/2024 10:02:20 06/04/2024 10:52:19 Routine care 015432823 Z34.90 [id number] [facility] [address],[place] [address] 06/04/2024 10:46:48 06/04/2024 11:16:33 Medical examination for suspected condition 781794679 Z03.71 Z3A.30 [id number] Andrea Machado MD [place] [address],[place] [address] 06/25/2024 12:30:05 06/25/2024 13:24:38 Routine care 015830377 Z34.90 [id number] [place] [address],[place] [address] 07/14/2024 11:11:13 07/14/2024 12:11:22 Vulvovaginitis 14885283 N76.0 s ection following previous section 571576100 O34.219 [id number] Andrea Machado MD [place] [address] [address] 07/23/2024 10:45:44 07/23/2024 11:23:38 Routine care 295535067 Z34.90 Health Concerns Section Related Observation LastModified by Organization Detai ls LastModified Time None Recorded Concern Status LastModified by Organization Details LastModified Time None Recorded Advance Directives Directive None Recorded Payers Encounter Date Sequence Insurance Name Policy Number Policy Herman Covered Member ID Herman Member ID Guarantor Name 06/04/2024 1 [facility]ADDAD [facility] [id number] Dotty Ayon [id number] Dotty Ayon 06/04/2024 1 [facility] [id number] Dotty Ayon [id number] Dotty Ayon 06/25/2024 1 [facility] [id number] Dotty Ayon [id number] Dotty Ayon 07/14/2024 1 [facility] [place] [facility] [id number] Dotty Ayon [id number] Dotty Ayon 07/23/2024 1 [facility]ADDAD [facility] [id number] Dotty Ayon [id number] [facility] [place] Episode Ob Episode Information Episode Created Date Number of Fetuses Patient Bloodtype Patient rh Status Prepregnancy Weight lbs Domestic Partner Domestic Partner Phone Father Name Screen Writer Status 02/26/20 1 CLOSED Fetus Data First Name Last Name Admitted to NICU Weight (g) Sex Living Outcome Pediatric Complications Fetus ID Race Codes Race Delivery Type 3259.96 5704 M Full Term [id number] Primary Ryan Calculation Initial Ryan Date Initial Exam Date Initial Exam Provider Initial Ultrasound Date Last Menstrual Period Date Ultra Sound Weeks Gestation 0 Eighteen To Twenty Week Ryan Update Ultra Sound Date Fundal Height At Umbil Quickening Date Ultra Sound Latest Weeks Gestation Final Ryan Confirmed By Final Ryan Confirmed Date Final Ryan Date Ultra Sound Latest Days Gestation 0 0 Menstrual History Last Menstrual Date Menses Monthly On Bcp Conception Prior Menses Frequency Hcg Plus Date Menarche Onset Age Delivery Information Delivery Date Delivery Type Labor Anesthesia Weeks Gestation Incision Type Labor Labor Length Hrs Delivered By Post Complications Tubal Sterilization Discharge Date Comments 1 39 breech Discharge Information Feeding Method Contraceptive Method Maternal HG B and HCT Levels Ob Episode Information Episode Created Date Number of Fetuses Patient Bloodtype Patient rh Status Prepregnancy Weight lbs Domestic Partner Domestic Partner Phone Father Name Screen Writer Status 02/26/20 1 CLOSED Fetus Data First Name Last Name Admitted to NICU Weight (g) Sex Living Outcome Pediatric Complications Fetus ID Race Codes Race Delivery Type 3486.76 1704 F Full Term [id number] Vaginal Delivery Ryan Calculation Initial Ryan Date Initial Exam Date Initial Exam Provider Initial Ultrasound Date Last Menstrual Period Date Ultra Sound Weeks Gestation 0 Eighteen To Twenty Week Ryan Update Ultra Sound Date Fundal Height At Umbil Quickening Date Ultra Sound Latest Weeks Gestation Final Ryan Confirmed By Final Ryan Confirmed Date Final Ryan Date Ultra Sound Latest Days Gestation 0 0 Menstrual History Last Menstrual Date Menses Monthly On Bcp Conception Prior Menses Frequency Hcg Plus Date Menarche Onset Age Delivery Information Delivery Date Delivery Type Labor Anesthesia Weeks Gestation Incision Type Labor Labor Length Hrs Delivered By Post Complications Tubal Sterilization Discharge Date Comments 0 40 Discharge Information Feeding Method Contraceptive Method Maternal HG B and HCT Levels Ob Episode Information Episode Created Date Number of Fetuses Patient Bloodtype Patient rh Status Prepregnancy Weight lbs Domestic Partner Domestic Partner Phone Father Name Screen Writer Status 02/28/20 24 1 AB Positive 163 OPEN Fetus Data First Name Last Name Admitted to NICU Weight (g) Sex Living Outcome Pediatric Complications Fetus ID Race Codes Race Delivery Type [id number] Problems Problem Notes failed 1 hour gtt Problem Name Start Date End Date Resolution Snomed Code Not e -induced hypertension 10524890 HISTORIC Hypoglycemia 079142520 Deliveries by [id number] to repeat Anemia 05/21/2024 590125009 1 tab twi ce daily Ryan Calculation Initial Ryan Date Initial Exam Date Initial Exam Provider Initial Ultrasound Date Last Menstrual Period Date Ultra Sound Weeks Gestation 02/28/2024 02/14/2024 11/06/2023 15 Eighteen To Twenty Week Ryan Update Ultra Sound Date Fundal Height At Umbil Quickening Date Ultra Sound Latest Weeks Gestation Final Ryan Confirmed By Final Ryan Confirmed Date Final Ryan Date Ultra Sound Latest Days Gestation 0 [email or web address] 02/28/2024 08/07/19 25 0 Pre-cj Flowsheet Flowsheet Date 02/28/2024 Silverman Score Blood Edema Fundus Height Fundus Units Glucose Ketones Leukocytes Nitrite Labor Signs Protein Cervic Dilation Cervic Effacement Cervic Station Type Weight in lbs Pre/Post Dialysis Refused Weight 166.094303100834 BP Diastolic BP Location Tested BP Systolic BP Type 68 L arm 112 sitting Fetus Heart Rate Present A 145 Fetus Movement A Yes Comments this patient is a 33-year-ol d multiparous female at 12 weeks' gestation who presents for initial care. She has a history of term vaginal births. Her medical, surgical, obstetric history is unremarkable. She is vaccinated. She was given precautions recommendations for . We talked about vaccines in . Talked about care in detail. She is having genetic testing. She had a normal 12 week ultrasound. To begin routine care. Flowsheet Date 03/26/2024 Silverman Score Blood Edema Fundus Height Fundus Units Glucose Ketones Leukocytes Nitrite Labor Signs Protein Cervic Dilation Cervic Effacement Cervic Station Type Weight in lbs Pre/Post Dialysis Refused BP Diastolic BP Location Tested BP Systolic BP Type Fetus Heart Rate Present Fetus Movement Comments Flowsheet Date 03/26/2024 Silverman Score Blood Edema Fundus Height Fundus Units Glucose Ketones Leukocytes Nitrite Labor Signs Protein Cervic Dilation Cervic Effacement Cervic Station Type Weight in lbs Pre/Post Dialysis Refused 167.138070052871 BP Diastolic BP Location Tested BP Systolic BP Type 69 L arm 109 sitting Fetus Heart Rate Present A 144 Fetus Movement A Yes Comments no complaints, no problems, routine care, no contractions, no vaginal bleeding, no loss of fluid, no cramping Flowsheet Date 04/21/2024 Silverman Score Blood Edema Fundus Height Fundus Units Glucose Ketones Leukocytes Nitrite Labor Signs Protein Cervic Dilation Cervic Effacement Cervic Station 24 cm Type Weight in lbs Pre/Post Dialysis Refused [id number] BP Diastolic BP Location Tested BP Systolic BP Type 80 125 Fetus Heart Rate Present A 145 Fetus Movement A Yes Comments no complaints, no problems, routine care, no contractions, no vaginal bleeding, no loss of fluid, no cramping Flowsheet Date 05/19/2024 Silverman Score Blood Edema Fundus Height Fundus Units Glucose Ketones Leukocytes Nitrite Labor Signs Protein Cervic Dilation Cervic Effacement Cervic Station Type Weight in lbs Pre/Post Dialysis Refused [id number] BP Diastolic BP Location Tested BP Systolic BP Type 82 L arm 131 sitting Fetus Heart Rate Present A 145 Fetus Movement A Yes Comments no complaints, no problems, routine care, no contractions, no vaginal bleeding, no loss of fluid, no cramping Flowsheet Date 06/04/2024 Silverman Score Blood Edema Fundus Height Fundus Units Glucose Ketones Leukocytes Nitrite Labor Signs Protein Cervic Dilation Cervic Effacement Cervic Station Type Weight in lbs Pre/Post Dialysis Refused [id number] BP Diastolic BP Location Tested BP Systolic BP Type 82 L arm 139 sitting Fetus Heart Rate Present A 144 Fetus Movement A Yes Comments patient reports leaking wate ry vaginal discharge with getting up out of a chair. Likely urine. To obtain OB ultrasound to check fluid. She was given precautions on continuous leaking fluid. Flowsheet Date 06/04/2024 Silverman Score Blood Edema Fundus Height Fundus Units Glucose Ketones Leukocytes Nitrite Labor Signs Protein Cervic Dilation Cervic Effacement Cervic Station Type Weight in lbs Pre/Post Dialysis Refused BP Diastolic BP Location Tested BP Systolic BP Type Fetus Heart Rate Present Fetus Movement Comments Flowsheet Date 06/25/2024 Silverman Score Blood Edema Fundus Height Fundus Units Glucose Ketones Leukocytes Nitrite Labor Signs Protein Cervic Dilation Cervic Effacement Cervic Station 142 cm Type Weight in lbs Pre/Post Dialysis Refused [id number] BP Diastolic BP Location Tested BP Systolic BP Type 80 L arm 138 sitting Fetus Heart Rate Present Fetus Movement A Yes Comments no complaints, no problems, routine care, no contractions, no vaginal bleeding, no loss of fluid, no cramping Flowsheet Date 07/14/2024 Silverman Score Blood Edema Fundus Height Fundus Units Glucose Ketones Leukocytes Nitrite Labor Signs Protein Cervic Dilation Cervic Effacement Cervic Station Type Weight in lbs Pre/Post Dialysis Refused Weight [id number] BP Diastolic BP Location Tested BP Systolic BP Type 77 L arm 133 sitting Fetus Heart Rate Present A 144 Fetus Movement A Yes Comments no complaints, no problems, routine care, no contractions, no vaginal bleeding, no loss of fluid, no cramping Flowsheet Date 07/23/2024 Silverman Score Blood Edema Fundus Height Fundus Units Glucose Ketones Leukocytes Nitrite Labor Signs Protein Cervic Dilation Cervic Effacement Cervic Station Type Weight in lbs Pre/Post Dialysis Refused [id number] BP Diastolic BP Location Tested BP Systolic BP Type 77 L arm 136 sitting Fetus Heart Rate Present Fetus Movement A Yes Comments no complaints, no problems, routine care, no contractions, no vaginal bleeding, no loss of fluid, no cramping brief bradycardia with handheld Doppler, to obtain NST. Menstrual History Last Menstrual Date Menses Monthly On Bcp Conception Prior Menses Frequency Hcg Plus Date Menarche Onset Age 0511/06/2023 true 28 15 Delivery Information Delivery Date Delivery Type Labor Anesthesia Weeks Gestation Incision Type Labor Labor Length Hrs Delivered By Post Complications Tubal Sterilization Discharge Date Comments Discharge Information Feeding Method Contraceptive Method Maternal HG B and HCT Levels
--- OUTSIDE RECORDS SUMMARY | 2024-07-30 12:29 | XMS_ITS | Data Portability ---
Author Organization [facility] Address [address] [place] [id number] Assessment Encounter Date Assessment Date Assessment LastModified by Organization Details LastModified Time 10/12/2021 10/12/2021 Santiago JOSUE Not available 10/12/2021 14:09:18 Plan of Treatment Reminders Order Date Submit Date Provider Last Modified By Organization Details Last Modified Time Details Appointments None recorded . Lab vaginal pathogen s panel, TACOS+prob e, vaginal fluid 2021 022 [place] [facility], 20[address] An[address], [address], [place], [address], 15:07:35 urinalys is, dipstick 2021 022 [place] In-Office Order, Internal Use Only DO Not Attach Compendium DO Not Attach Compendium, Do Not Delete/merge, [id number] 12:55:12 HIV 1 + 2, meaningf ul use set 2022 023 [place] [facility], 2022 Anast[address] Matrinez, [address], [place], [address], 3 07:11:41 chlamydi a trachoma tis + neisseri a gonorrho eae + trichomo regina vaginali s DNA panel, TACOS+prob e, unspecif ied specimen 2022 023 [place] [facility], 2022 Anast[address], [address], [place], [address], 3 07:11:40 RPR (rapid plasma reagin), serum 2022 023 [place] [facility], 2022 Anast[address] Martinez, [address], [place], [address], 3 07:11:40 hepatiti s panel (A+B+C), acute, serum 2022 023 [place] [facility], 2022 Anastacio Martinez, [address], [place], [address], 3 07:11:39 vaginal pathogen s panel, TACOS+prob e, vaginal fluid 2023 024 [facility], 2022 Anastacio Martinez, [address], [place], [address], 4 06:18:54 HIV 1 + 2, meaningf ul use set 2023 024 [facility], 2022 Anastacio Martinez, [address], [place], [address], 4 11:14:58 RPR (rapid plasma reagin), serum 2023 024 [facility], 2022 Anastacio Martinez, [address], [place], [address], 4 11:14:57 pregnanc y test, urine 2023 024 [email or web address] In-Office Order, Internal Use Only DO Not Attach Compendium DO Not Attach Compendium, Do Not Delete/merge, [id number] 4 12:51:46 Referral gynecolo gist referral 2023 024 [email or web address] [facility] [place], [address], [address], [place], [address], 4 11:27:50 Procedures None recorded . Surgeries None recorded . Imaging None recorded . Medication Orders Bactrim DS 800 mg-160 mg tablet 2023 024 [email or web address] [facility], [address] [place] [address], [address], 4 11:22:56 metronid azole 500 mg tablet 2023 024 [email or web address] [address], [address], 4 11:23:11 itracona zole 100 mg capsule 2023 024 [facility] [address], [address], 4 12:51:51 metronid azole 0.75 % (37.5 mg/5 gram) vaginal gel 2023 024 [email or web address] [address], [address], 16:50:49 Patient TargetsNo targets recorded. Patient Instructions Encounter Date Encounter Id Patient Instructions Last Modified By Organization Details Last Modified Time 04/04/2023 [id number] bartholin gland cyst: care instructions Not available 04/04/2023 10:33:20 09/30/2023 [id number] bartholin gland cyst: care instructions [email or web address] Not available 09/30/2023 12:51:45 CHART REVIEWED [email or web address] Not available 0 10/01/2023 09:35:43 10/22/2023 [id number] bacterial vaginosis: care instructions [email or web address] Not available 10/22/2023 11:50:43 learning about healthy weight [email or web address] Not available 10/22/2023 11:50:43 11/19/2023 [id number] bartholin gland cyst: care instructions [email or web address] Not available 11/19/2023 17:02:43 learning about healthy weight Not available 11/19/2023 17:02:12 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 Referral for Cy st of right Bartholin's gland duct Referring Physician: June [place], Family Medicine, Encounter Date: 11/19/2023 Results Created Date Observation Date Name Description Value Unit Range Abnormal Flag Note LastModifiedBy Organization Detail LastModifiedTime 10/13/19 22 10/13/2021 NUSWA B VAGIN ITIS PLUS (VG+) atopobium vaginae High - 2 score abnormal Not Available [facility] ([facility]) [address] [facility], [place], [address], 10/15/2021 15:07:35 10/13/19 22 10/13/2021 NUSWA B VAGIN ITIS PLUS (VG+) bvab 2 High - 2 score abnormal Not Available [facility] ([facility]) [address] [place], [address], 10/15/2021 15:07:35 10/13/19 22 10/13/2021 NUA B VAGIN ITIS PLUS (VG+) megasphaera 1 High - 2 score abnormal Calcu late total score by maria alejandra howard the 3 indiv idual bacte rial vagin osis (BV) marke r score s toget her. Total score is inter prete d as follo ws: Total score 0-1: Indic ates the absen ce of BV. Total score 2: Indet ermin ate for BV. Addit ional clini cristiana data shoul d be evalu ated to estab pita a diagn osis. Total score 3-6: Indic ates the prese nce of BV. This test was devel oped and its perfo rmanc e erick cteri stics deter mined by [facility]. It has not been clear ed or appro lamine by the Food and Drug Admin istra tion. Not Available [facility] ([facility]) [address] [facility], [place], [address], 10/15/2021 15:07:35 10/13/19 22 10/15/2021 NUSWA B VAGIN ITIS PLUS (VG+) naomi albicans, TACOS Positi ve negati ve abnormal Not Available [facility] ([facility]) [address] [facility], [place], [address], 10/15/2021 15:07:35 10/13/19 22 10/15/2021 NUSWA B VAGIN ITIS PLUS (VG+) naomi glabrata, TACOS Negati ve negati ve Not Available [facility] ([facility]) [address] [facility], [place], [address], 10/15/2021 15:07:35 10/13/19 22 10/15/2021 NUSWA B VAGIN ITIS PLUS (VG+) trich vag by TACOS Negati ve negati ve Not Available [facility] ([facility]) [address] [facility], [place], [address], 10/15/2021 15:07:35 10/13/19 22 10/15/2021 NUSWA B VAGIN ITIS PLUS (VG+) chlamydia trachomatis, TACOS Negati ve negati ve Not Available [facility] ([facility]) [address] [facility], [place], [address], 10/15/2021 15:07:35 10/13/19 22 10/15/2021 NUA B VAGIN ITIS PLUS (VG+) neisseria gonorrhoeae, TACOS Negati ve negati ve Not Available [facility] ([facility]) [address] [facility], [place], [address], 10/15/2021 15:07:35 10/13/19 22 10/12/2021 urina lysis , dipst ick Leukocytes Negati ve Not Available In-Office Order Internal Use Only DO Not Attach Compendium DO Not Attach Compendium, Do Not Delete/merge, [id number] 10/12/2021 12:40:55 10/13/19 22 10/12/2021 urina lysis , dipst ick Nitrite negati ve Not Available In-Office Order Internal Use Only DO Not Attach Compendium DO Not Attach Compendium, Do Not Delete/merge, [id number] 10/12/2021 12:40:55 10/13/19 22 10/12/2021 urina lysis , dipst ick Urobilinogen .2 Not Available In-Of fice Order Internal Use Only DO Not Attach Compendium DO Not Attach Compendium, Do Not Delete/merge, 10/12/2021 12:40:55 10/13/19 22 10/12/2021 urina lysis , dipst ick Protein Negati ve Not Available In-Office Order Internal Use Only DO Not Attach Compendium DO Not Attach Compendium, Do Not Delete/merge, 10/12/2021 12:40:55 10/13/19 22 10/12/2021 urina lysis , dipst ick pH 5.5 Not Available In-Office Order Internal Use Only DO Not Attach Compendium DO Not Attach Compendium, Do Not Delete/merge, 10/12/2021 12:40:55 10/13/19 22 10/12/2021 urina lysis , dipst ick Blood Negati ve Not Available In-Office Order Internal Use Only DO Not Attach Compendium DO Not Attach Compendium, Do Not Delete/merge, 10/12/2021 12:40:55 10/13/19 22 10/12/2021 urina lysis , dipst ick Specific [place] 1.030 Not Available In-Off ice Order Internal Use Only DO Not Attach Compendium DO Not Attach Compendium, Do Not Delete/merge, 10/12/2021 12:40:55 10/13/19 22 10/12/2021 urina lysis , dipst ick Ketone Negati ve Not Available In-Office Order Internal Use Only DO Not Attach Compendium DO Not Attach Compendium, Do Not Delete/merge, 10/12/2021 12:40:55 10/13/19 22 10/12/2021 urina lysis , dipst ick Bilirubin Negati ve Not Available In-Office Order Internal Use Only DO Not Attach Compendium DO Not Attach Compendium, Do Not Delete/merge, 10/12/2021 12:40:55 10/13/19 22 10/12/2021 urina lysis , dipst ick Glucose Negati ve Not Available In-Office Order Internal Use Only DO Not Attach Compendium DO Not Attach Compendium, Do Not Delete/merge, [id number] 10/12/2021 12:40:55 10/13/1910/12/2021 urina lysis , dipst ick Appearance Clear Not Available In-Offi ce Order Internal Use Only DO Not Attach Compendium DO Not Attach Compendium, Do Not Delete/merge, [id number] 10/12/2021 12:40:55 10/13/1910/12/2021 urina lysis , dipst ick Color Yellow Not Available In-Office Order Internal Use Only DO Not Attach Compendium DO Not Attach Compendium, Do Not Delete/merge, [id number] 10/12/2021 12:40:55 04/04/2004/05/2023 ACUTE HEPAT ITIS hep A Ab, IgM Negati ve negati ve Not Available [facility] ([facility]) [address] [place], [address], 04/07/2023 07:11:38 04/04/2004/05/2023 ACUTE HEPAT ITIS HBsAg screen Negati ve negati ve Not Available [facility] ([facility]) [address] [place], [address], 04/07/2023 07:11:38 04/04/20 23 04/05/2023 ACUTE HEPAT ITIS hep B core Ab, IgM Negati ve negati ve Not Available [facility] ([facility]) [address] [place], [address], 04/07/2023 07:11:38 04/04/20 23 04/05/2023 ACUTE HEPAT ITIS HCV Ab Non Reacti ve nonrea ctive Not Available [facility] ([facility]) [address] [place], [address], 04/07/2023 07:11:38 04/04/20 23 04/07/2023 CT, NG, TRICH VAG BY TACOS chlamydia by TACOS Negati ve negati ve Not Available [facility] ([facility]) [address] [place], [address], 04/07/2023 07:11:40 04/04/2004/07/2023 CT, NG, TRICH VAG BY TACOS gonococcus by TACOS Negati ve negati ve Not Available [facility] ([facility]) [address] [facility], [place], [address], 04/07/2023 07:11:40 04/04/2004/07/2023 CT, NG, TRICH VAG BY TACOS trich vag by TACOS Negati ve negati ve Not Available [facility] ([facility]) [address] [facility], [place], [address], 04/07/2023 07:11:40 04/04/2004/05/2023 RPR, RFX QN RPR/C ONFIR M TP RPR Non Reacti ve nonrea ctive Not Available [facility] ([facility]) [address] [facility], [place], [address], 04/07/2023 07:11:40 04/04/2004/05/2023 HIV AB/P2 4 AG WITH REFLE X HIV Ab/P24 Ag screen Non Reacti ve nonrea ctive HIV Negat david HIV-1 /HIV- 2 antib odies and HIV-1 p24 antig en were NOT detec gilbert. There is no labor atory evide nce of HIV infec tion. Not Available [facility] ([facility]) [address] [facility], [place], [address], 04/07/2023 07:11:41 04/04/2004/05/2023 INTER PRETA TION: interpretati on: Commen t Not infec gilbert with HCV unles s early or acute infec tion is suspe cted (whic h may be delay ed in an immun ocomp romis ed indiv idual ), or other evide nce exist s to indic ate HCV infec tion. Not Available [facility] ([facility]) [address] [facility], [place], [address], 04/07/2023 07:11:39 09/30/19 24 10/01/2023 RPR, RFX QN RPR/C ONFIR M TP RPR Non Reacti ve nonrea ctive Not Available [facility] ([facility]) [address] [place], [address], 10/01/2023 11:14:57 09/30/19 24 10/01/2023 HIV AB/P2 4 AG WITH REFLE X HIV Ab/P24 Ag screen Non Reacti ve nonrea ctive HIV Negat david HIV-1 /HIV- 2 antib odies and HIV-1 p24 antig en were NOT detec gilbert. There is no labor atory evide nce of HIV infec tion. Not Available [facility] ([facility]) [address] [facility], [place], [address], 10/01/2023 11:14:58 09/30/19 24 10/03/2023 NUSWA B VAGIN ITIS PLUS (VG+) atopobium vaginae High - 2 score abnormal Not Available [facility] ([facility]) [address] [place], [address], 10/04/2023 06:18:54 09/30/19 24 10/03/2023 NUSWA B VAGIN ITIS PLUS (VG+) bvab 2 High - 2 score abnormal Not Available [facility] ([facility]) [address] [place], [address], 10/04/2023 06:18:54 09/30/19 24 10/03/2023 NUSWA B VAGIN ITIS PLUS (VG+) megasphaera 1 High - 2 score abnormal Calcu late total score by maria alejandra g the 3 indiv idual bacte rial vagin osis (BV) marke r score s toget her. Total score is inter prete d as follo ws: Total score 0-1: Indic ates the absen ce of BV. Total score 2: Indet ermin ate for BV. Addit ional clini cristiana data shoul d be evalu ated to estab pita a diagn osis. Total score 3-6: Indic ates the prese nce of BV. This test was devel brynned and its perfo rmanc e erick cteri stics deter mined by [facility]. It has not been clear ed or appro lamine by the Food and Drug Admin istra tion. Not Available [facility] ([facility]) [address] [facility], [place], [address], 10/04/2023 06:18:54 09/30/19 24 10/03/2023 NUSWA B VAGIN ITIS PLUS (VG+) naomi albicans, TACOS Negati ve negati ve Not Available [facility] ([facility]) [address] [place], [address], 10/04/2023 06:18:54 09/30/19 24 10/03/2023 NUSWA B VAGIN ITIS PLUS (VG+) naomi glabrata, TACOS Negati ve negati ve Not Available [facility] ([facility]) [address] [place], [address], 10/04/2023 06:18:54 09/30/19 24 10/03/2023 NUSWA B VAGIN ITIS PLUS (VG+) trich vag by TACOS Negati ve negati ve Not Available [facility] ([facility]) [address] [place], [address], 10/04/2023 06:18:54 09/30/19 24 10/03/2023 NUSWA B VAGIN ITIS PLUS (VG+) chlamydia trachomatis, TACOS Negati ve negati ve Not Available [facility] ([facility]) [address] [place], [address], 10/04/2023 06:18:54 09/30/19 24 10/03/2023 NUSWA B VAGIN ITIS PLUS (VG+) neisseria gonorrhoeae, TACOS Negati ve negati ve Not Available [facility] ([facility]) [address], [place], [address], 10/04/2023 06:18:54 09/30/19 24 09/30/2023 pregn lexi test, urine HCG negati ve Not Available In-Office Order Internal Use Only DO Not Attach Compendium DO Not Attach Compendium, Do Not Delete/merge, [id number] 09/30/2023 12:25:38 02/08/20 24 02/07/2024 US, obste tric, 1st trime ster No observ ation record ed. [facility] [address] [place], [address], 02/13/2024 10:45:02 Result Notes None recorded. 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 Ely Baxter MD Attn: Sav howard,[address] [facility], [place], [address], [place] [facility] 1 18:08:44 Subchori onic hematoma 580599449 Active 2019 resolved . Ely Baxter MD Attn: Sav howard,[address] [facility], [place], [address], [place] [facility] 1 18:08:45 Influenz a vaccinat ion declined 237665220 Completed 201910/12/2019 Jared Odonnell null[place] [facility] 0 11:03:29 Eruption 935968673 Completed 201910/12/2019 Jared Odonnell [place] [facility] 0 11:03:33 Anemia 525437566 Active 2019 Ely Baxter MD Attn: Sav howard,[address] [facility], [place], [address], [place] [facility] 2 17:24:07 Anemia 202952553 Completed 2019 Ely Baxter MD Attn: Cesardanny howard,[address] [facility], [place], [address], [place] [facility] 1 18:08:44 Glucose toleranc e test outside referenc e range 838381279 Active 2019 Normal 3 hour GTT Ely Baxter MD Attn: Sav howard,[address] [facility], [place], [address], [place] [facility] 1 18:08:45 Glucose toleranc e test outside referenc e range 065582413 Completed 2019 Normal 3 hour GTT Ely Baxter MD Attn: Sav howard,[address] [facility], [place], [address], [place] [facility] 1 18:08:45 Pregnanc y 22402633 Completed 202008/31/2020 Jared Odonnell null[place] [facility] 1 12:35:14 Chronic idiopath ic constipa tion 25015898 Completed 2020 Ely Baxter MD Attn: Sav howard,[address] [facility], [place], [address], [place] [facility] 2 17:24:07 Chronic idiopath ic constipa tion 75432404 Active 2020 Ely Baxter MD Attn: Sav howard,[address] [place], [address], [place] [facility] 2 17:24:07 Cyst of right Bartholi n's gland duct 93786005735 446308 Active 2020 Ely Baxter MD Attn: Sav howard,[address] [facility], [place], [address], [place] [facility] 2 17:24:07 Cyst of right Bartholi n's gland duct 15418493044 084138 Completed 2020 Ely Baxter MD Attn: Sav howard,[address] [facility], [place], [address], [place] [facility] 2 17:24:07 Anemia 535189034 Completed 2019 Ely Baxter MD Attn: Sav howard,[address] [facility], [place], [address], [place] [facility] 2 17:24:07 Bacteria l vaginosi s 269222131 Completed Ely Baxter MD Attn: Sav howard,[address] [place], [address], [place] [facility] 2 17:24:07 Candidia sis of vagina 60805616 Completed Ely Baxter MD Attn: Sav howard,[address] [facility], [place], [address], [place] [facility] 2 17:24:07 Group B Streptoc occus carrier 55085635770 03 Completed 2016 Ely Baxter MD Attn: Sav howard,[address] [place], [address], [place] [facility] 2 17:24:07 Syphilis 78492583 Completed 2019 Ely Baxter MD Attn: Sav howard,[address] [place], [address], [place] [facility] 2 17:24:07 COVID-19 602521043 Active 2020 Ely Baxter MD Attn: Sav howard,[address] [place], [address], [place] [facility] 2 17:24:07 COVID-19 953455650 Completed 2020 Ely Baxter MD Attn: Cesardanny howard,[address] [place], [address], [place] [facility] 2 17:24:07 Routine antenata l care Completed 202003/01/2021 Jared Odonenll [place], [place] - [facility] 1 13:46:08 growth restrict ion 95717164 Active 2020 fgr 12th% (5-14) normal [place] 14; weekly BPP with NST and deliver 39 weeks or earlier if indicate d Ely Baxter MD Attn: Cesardanny howard,[address] [place], [address], [place] [facility] 2 17:24:07 growth restrict ion 99696021 Completed 2020 fgr 12th% (5-14) normal [place] 14; weekly BPP with NST and deliver 39 weeks or earlier if indicate d Ely Baxter MD Attn: Cesardanny howard,[address] [place], [address], [place] [facility] 2 17:24:07 Malprese ntation of fetus 98249717 Completed 2020 Ely Baxter MD Attn: Sav howard,[address] [place], [address], [place] [facility] 2 17:24:07 Malprese ntation of fetus 66246293 Active 2020 Ely Baxter MD Attn: Sav howard,[address] [place], [address], [place] - [facility] 2 17:24:07 Breech presenta tion 9747923 Completed 2020 Ely Baxter MD Attn: Sav howard,[address] [place], [address], [place] - [facility] 2 17:24:07 Breech presenta tion 2225437 Active 2020 Ely Baxter MD Attn: Sav howard,[address] [place], [address], [place] [facility] 2 17:24:07 Abnormal cervical Papanico laou smear 156371769 Completed 06/17/2019 Jared Odonnell [place], [place] - [facility] 9 12:20:00 Bacteria l vaginosi s 521094839 Active Ely Baxter MD Attn: Sav howard,[address] [place], [address], [place] - [facility] 2 17:24:07 Candidia sis of vagina 38935679 Active Ely Baxter MD Attn: Cesardanny howard,[address] [facility], [place], [address], [place] [facility] 2 17:24:07 Group B Streptoc occus carrier 97210224358 03 Active 2016 Ely Baxter MD Attn: Cesardanny howard,[address] [facility], [place], [address], [place] - [facility] 2 17:24:07 Problem Notes None recorded. Procedures Surgical History Date Name Laterality Status Provider Name and Address Organization Details Recorded Time 3 IUD Removal completed MICHAEL SALDIVAR Attn: Accounting,[address] [facility], [place], [address], [place] - [facility] 04/04/2023 10:36:21 1 IUD Insertion completed MICHAEL SALDIVAR Attn: Accounting,[address] [facility], [place], [address], [place] [facility] 06/27/2021 13:34:33 1 SECTION (SURG) completed Regina Duke LPN [place] [facility] 03/27/2021 09:38:29 1 Date of Last Pap Smear completed Lisette Polk MA [place] - [facility] 08/31/2020 11:36:47 5 Colposcopy completed Jared Odonnell [place] - [facility] 10/04/2014 13:06:23 Imaging Results Imaging Date Name Status LastModified by Organiz ation Details LastModified Time 02/07/2024 US, obstetric, 1st trimester completed [facility] [address] [place], [address], 02/13/2024 10:45:02 Procedure Notes None recorded. Medical Equipment None Reported. Allergies Allergen ID Allergen Name Allergen Category Reaction Reaction Severity Criticality Documentation Date Start Date Code Code System Note Provider Name and Address Organization Details Recorded Time [id number] fluconazo le medicatio n hives Not available Not available 06/20/2018 4450 RxNorm Not Available Not Available Not Available [id number] 59876 Augmentin medicatio n hives Not available Not available 09/08/2020 98262 2 RxNorm Not Available Not Available Not Available [id number] 26276 Diflucan medicatio n hives Not available Not available 06/29/2021 53264 3 RxNorm Not Available Not Available Not Available [id number] 546c6 Bactrim medicatio n anaphylax is severe high 10/10/2023 42526 9 RxNorm Not Available Not Available Not Available [id number] 29b50 sulfameth oxazole / trimethop rim medicatio n other severe Not available 10/22/2023 21741 RxNorm Not Available Not Available Not Available [id number] 4ce37 amoxicill in medicatio n hives severe Not available 09/08/2014 723 RxNorm Not Available Not Available Not Available [id number] 24c09 Product containin g penicilli n and antibioti c (product) medicatio n hives severe Not available 09/08/2014 08095 05 SNOMED Not Available Not Available Not Available Medications Name Sig Start Date Stop Date Status Note LastModified by Organization Details LastModified Time multivitami n tablet Take 1 tablet every day by oral route. 08/31 completed Not Available Not Available Not Available amoxicillin 500 mg capsule TAKE 1 CAPSULE BY MOUTH THREE TIMES DAILY 09/29 completed Not Available Not Available Not Available Mirena 21 mcg/24 hr (up to 8 years) 52 mg intrauterin e device Take 1 device by intrauter ine route. 09/29 completed Not Available Not Available Not Available promethazin e-DM 6.25 mg-15 mg/5 mL oral syrup TAKE 1 TEASPOONF UL BY MOUTH 4 TIMES DAILY 09/29 completed Not Available Not Available Not Available acetaminoph en 325 mg tablet 08/31 completed Not Available Not Available Not Available clindamycin HCl 300 mg capsule TAKE 1 CAPSULE BY MOUTH EVERY 6 HOURS FOR 10 DAYS 10/21 completed Not Available Not Available Not Available Tab-A-Isha tablet 08/11 completed Not Available Not Available Not Available azithromyci n 250 mg tablet TK 2 TS PO ON DAY 1, THEN TK 1 T PO D FOR 4 DAYS 09/29 completed Not Available Not Available Not Available ibuprofen 800 mg tablet Take 1 tablet 3 times a day by oral route as needed for 10 days. 10/12 completed Not Available Not Available Not Available tizanidine 4 mg tablet 06/27 completed Not Available Not Available Not Available fluconazole 150 mg tablet Take 1 tablet every day by oral route as directed for 1 day. 10/12 completed Not Available Not Available Not Available hydrocodone 5 mg-acetamin ophen 325 mg tablet 06/27 completed Not Available Not Available Not Available promethazin e 6.25 mg/5 mL oral syrup TAKE 1 TEASPOON BY MOUTH FOUR TIMES DAILY 04/04 completed Not Available Not Available Not Available meloxicam 15 mg tablet 09/29 completed Not Available Not Available Not Available metronidazo le 0.75 % (37.5 mg/5 gram) vaginal gel INSERT 1 APPLICATO R FULL VAGINALLY EVERY NIGHT AT BEDTIME FOR 5 DAYS 11/18 completed Not Available Not Available Not Available ondansetron HCl 4 mg tablet TAKE 1 TABLET BY MOUTH EVERY 8 HOURS active Not Available Not Available No t Available Monistat 7 2 % vaginal cream Insert 1 applicato rful every day by vaginal route for 7 days. 04/30 completed Not Available Not Available Not Available prednisone 20 mg tablet TAKE 3 TABLETS BY MOUTH DAILY FOR 4 DAYS 10/21 completed Not Available Not Available Not Available methyldopa 250 mg tablet Take 1 tablet twice a day by oral route. 06/27 completed Not Available Not Available Not Available terconazole 0.8 % vaginal cream INSERT ONE APPLICATO RFUL VAGINALLY ONCE DAILY FOR 3 DAYS 02/01 completed Not Available Not Available Not Available clindamycin HCl 150 mg capsule 07/23 completed Not Available Not Available Not Available penicillin V potassium 500 mg tablet Take 1 tablet every 8 hours by oral route for 10 days. 02/01 completed Not Available Not Available Not Available clotrimazol e 1 % vaginal cream Insert 1 applicato rful every day by vaginal route at bedtime for 7 days. 09/29 completed Not Available Not Available Not Available metronidazo le 500 mg tablet TAKE 1 TABLET BY MOUTH TWICE A DAY WITH MEALS FOR 7 DAYS 10/21 completed Not Available Not Available Not Available acetaminoph en 300 mg-codeine 30 mg tablet TAKE 1 TABLET BY MOUTH FOUR TIMES A DAY NEEDED FOR PAIN 04/04 completed Not Available Not Available Not Available ciprofloxac in 500 mg tablet TAKE 1 TABLET BY MOUTH TWICE DAILY 10/05 /2023 completed Not Available Not Available Not Available sulfamethox azole 800 mg-trimetho prim 160 mg tablet TAKE 1 TABLET BY MOUTH EVERY 12 HOURS FOR 5 DAYS 10/21 completed Not Available Not Available Not Available hydrocodone 10 mg-acetamin ophen 325 mg tablet 07/23 completed Not Available Not Available Not Available omeprazole 40 mg capsule,del ayed release 08/31 completed Not Available Not Available Not Available aspirin 81 mg tablet,akiko yed release Take 2 tablets every day by oral route. 08/11 completed Not Available Not Available Not Available Condoms-Pre m Lubricated Take 1 device as needed by miscell. route. 04/13 completed Not Available Not Available Not Available ondansetron 8 mg disintegrat ing tablet TAKE 1 TABLET BY MOUTH 3 TIMES A DAY NEEDED active Not Available Not Available No t Available baclofen 20 mg tablet TAKE 1 TABLET BY MOUTH TWICE DAILY active Not Available Not Available No t Available Vitamin tablet Take 1 tablet every day by oral route as directed for 90 days. 04/13 completed Not Available Not Available Not Available meloxicam 7.5 mg tablet active Not Available Not Available Not Available oxycodone-a cetaminophe n 5 mg-325 mg tablet TAKE 1 TABLET BY MOUTH EVERY 6 HOURS NEEDED active Not Available Not Available No t Available famotidine 20 mg tablet TAKE 1 TABLET BY MOUTH TWICE A DAY 06/27 completed Not Available Not Available Not Available gentamicin 0.3 % eye drops USE 3 DROPS IN EACH EYE TWICE DAILY 09/29 completed Not Available Not Available Not Available oxycodone-a cetaminophe n 10 mg-325 mg tablet 04/13 completed Not Available Not Available Not Available cephalexin 500 mg capsule TAKE 1 CAPSULE BY MOUTH 3 TIMES DAILY 04/04 completed Not Available Not Available Not Available ferrous sulfate 325 mg (65 mg iron) tablet Take 1 tablet twice a day by oral route. 06/27 completed Not Available Not Available Not Available nystatin 100,000 unit/gram topical cream APPLY TO THE AFFECTED AREA(S) BY TOPICAL ROUTE 2 TIMES PER DAY X 7 DAYS 10/12 completed Not Available Not Available Not Available progesteron e micronized 200 mg capsule TAKE 1 CAPSULE BY MOUTH TWICE A DAY 03/22 completed Not Available Not Available Not Available docusate sodium 100 mg capsule 08/31 completed Not Available Not Available Not Available aspirin 81 mg chewable tablet CHEW 2 TABLETS BY MOUTH EVERY DAY 06/27 completed Not Available Not Available Not Available folic acid 1 mg tablet Take 4 tablets every day by oral route. 04/13 completed Not Available Not Available Not Available hydrocortis one 2.5 % topical cream active Not Available Not Available Not Available ibuprofen 600 mg tablet 10/12 completed Not Available Not Available Not Available Robafen 100 mg/5 mL oral liquid 07/23 completed Not Available Not Available Not Available methylpredn isolone 4 mg tablets in a dose pack 08/11 completed Not Available Not Available Not Available labetalol 100 mg tablet Take 1 tablet every day by oral route as directed. 06/27 completed Not Available Not Available Not Available norethindro ne (contracept david) 0.35 mg tablet Take 1 tablet every day by oral route. 07/23 completed Not Available Not Available Not Available ondansetron 4 mg disintegrat ing tablet Place 2 tablets twice a day by transling ual route as needed for 30 days. active Not Available Not Available No t Available itraconazol e 100 mg capsule TAKE 2 CAPSULES BY MOUTH EVERY DAY active Not Available Not Available No t Available metoclopram tres 10 mg tablet Take 1 tablet 4 times a day by oral route. 08/11 completed Not Available Not Available Not Available amoxicillin 875 mg-potassiu m clavulanate 125 mg tablet Take 1 tablet every 12 hours by oral route for 10 days. 02/01 completed Not Available Not Available Not Available Vitamin 27 mg iron-0.8 mg tablet 06/27 completed Not Available Not Available Not Available nitrofurant oin monohydrate /macrocryst als 100 mg capsule Take 1 capsule every 12 hours by oral route for 10 days. 02/01 completed Not Available Not Available Not Available Clindesse 2 % vaginal cream,exten ded release Insert 1 applicato rful by vaginal route. 2014 active Not Available Not Available Not Avai lable calcium 500 mg (as carbonate)- vit D3 10 mcg (400 unit) chewable tablet Take 1 tablet twice a day by oral route. 07/23 completed Not Available Not Available Not Available RepHresh vaginal gel Insert 1 g as needed by vaginal route. 07/23 completed Not Available Not Available Not Available ferrous gluconate 324 mg (38 mg iron) tablet Take 1 tablet twice a day by oral route. 04/13 completed Not Available Not Available Not Available Calcium with Vitamin D3 600 mg (carbonate) -10 mcg (400 unit) capsule Take 1 capsule twice a day by oral route. 02/01 completed Not Available Not Available Not Available Calcium with Vitamin D 600 mg-10 mcg (400 unit) tablet Take 1 tablet twice a day by oral route. 08/31 completed Not Available Not Available Not Available Gummies Girls' Multivitami ns chewable tablet Take 1 tablet twice a day by oral route. 07/23 completed Not Available Not Available Not Available calcium 600 mg (as carbonate)- vitamin D3 20 mcg (800 unit) tablet Take 1 tablet twice a day by oral route. 06/20 completed Not Available Not Available Not Available Linzess 145 mcg capsule Take 1 capsule every day by oral route. 02/01 completed Not Available Not Available Not Available Gummy 400 mcg-35 mg-25 mg-5 mg chewable tablet Take 1 tablet every day by oral route. 06/27 completed Not Available Not Available Not Available VitaMedMD RediChew Rx 1.4 mg chew tablet,imme diate - delayed release Chew 1 tablet every day by oral route. 02/01 completed Not Available Not Available Not Available Caltrate Gummy Bites 250 mg-10 mcg (400 unit) chewable tablet Take 1 tablet every day by oral route. 06/27 completed Not Available Not Available Not Available Tab-A-Isha 400 mcg tablet 08/31 completed Not Available Not Available Not Available Vitals Date Recorded Body height Provider Name an d Address Organization Details Last Updated DateTime 10/12/2021 165.1 cm Nicki Caceres [place] - [facility] 2021 12:20:47 Date Recorded Body mass index (BMI) Provider Name and Address Organization Details Last Updated DateTime 10/12/2021 25 kg/m2 LARISSA Ernandez - [facility] 2021 12:20:58 Date Recorded Body weight Provider Name an d Address Organization Details Last Updated DateTime 10/12/2021 93757.26 g Nicki Caceres MA [facility] 2021 12:20:59 Date Recorded Heart rate Provider Name an d Address Organization Details Last Updated DateTime 10/12/2021 75 /min Nicki Caceres [facility] 2021 12:21:13 Date Recorded Body temperature Provider Name a nd Address Organization Details Last Updated DateTime 10/12/2021 98.5 [degF] Nicki Caceres [facility] 10/12/2021 12:21:18 Date Recorded Oxygen saturation Oxygen saturation in Arterial blood by Pulse oximetry Provider Name and Address Organization Details Last Updated DateTime 10/12/2021 100 % 100 % Nicki Caceres [facility] 10/12/2021 12:21:26 Date Recorded Body height Provider Name an d Address Organization Details Last Updated DateTime 04/04/2023 165.1 cm Clover De Justyna Cr [facility] 04/04/2023 10:03:53 Date Recorded Body mass index (BMI) Body weight Provider Name and Address Organization Details Last Updated DateTime 04/04/2023 24.1 kg/m2 50519.[address] [facility] 04/04/2023 10:07:35 Date Recorded Oxygen saturation Oxygen saturation in Arterial blood by Pulse oximetry Provider Name and Address Organization Details Last Updated DateTime 04/04/2023 99 % 99 % Clover Nunez [facility] 04/04/2023 10:11:06 Date Recorded Heart rate Provider Name an d Address Organization Details Last Updated DateTime 04/04/2023 72 /min Clover De Justyna Cr dasia [facility] 04/04/2023 10:11:09 Date Recorded Body temperature Provider Name a nd Address Organization Details Last Updated DateTime 04/04/2023 98.1 [degF] Clover Nunez [facility] 04/04/2023 10:11:12 Date Recorded Body height Provider Name an d Address Organization Details Last Updated DateTime 09/30/2023 165.1 cm Clover De La Cr uz, [facility] 09/30/2023 11:54:10 Date Recorded Body mass index (BMI) Body weight Provider Name and Address Organization Details Last Updated DateTime 09/30/2023 24.6 kg/m2 [address] [facility] 09/30/2023 11:56:50 Date Recorded Oxygen saturation Oxygen saturation in Arterial blood by Pulse oximetry Provider Name and Address Organization Details Last Updated DateTime 09/30/2023 97 % 97 % Clover Nunez [facility] 09/30/2023 12:02:37 Date Recorded Heart rate Provider Name an d Address Organization Details Last Updated DateTime 09/30/2023 83 /min Clover De La Cr uz, [facility] 09/30/2023 12:02:40 Date Recorded Body height Provider Name an d Address Organization Details Last Updated DateTime 10/22/2023 165.1 cm Clover De La Cr uz, [facility] 10/22/2023 11:19:38 Date Recorded Body mass index (BMI) Body weight Provider Name and Address Organization Details Last Updated DateTime 10/22/2023 25.8 kg/m2 27512.[address] [facility] 10/22/2023 11:22:32 Date Recorded Oxygen saturation Oxygen saturation in Arterial blood by Pulse oximetry Provider Name and Address Organization Details Last Updated DateTime 10/22/2023 99 % 99 % Clover Nunez [facility] 10/22/2023 11:28:31 Date Recorded Heart rate Provider Name an d Address Organization Details Last Updated DateTime 10/22/2023 69 /min Clover De La Cr uz, [facility] 10/22/2023 11:28:33 Date Recorded Body height Provider Name an d Address Organization Details Last Updated DateTime 11/19/2023 165.1 cm Clover De La Cr uz, [facility] 11/19/2023 16:46:42 Date Recorded Body mass index (BMI) Body weight Provider Name and Address Organization Details Last Updated DateTime 11/19/2023 25.3 kg/m2 68526.04 g Clover Nunez [place] [facility] 11/19/2023 16:48:44 Date Recorded Oxygen saturation Oxygen saturation in Arterial blood by Pulse oximetry Provider Name and Address Organization Details Last Updated DateTime 11/19/2023 96 % 96 % Clover Manley La Cruz [facility] 11/19/2023 16:54:01 Date Recorded Heart rate Provider Name an d Address Organization Details Last Updated DateTime 11/19/2023 74 /min Cloverfrancheska Ling [facility] 11/19/2023 16:54:03 Date Recorded Systolic blood pressure Diastolic blood pressure Provider Name and Address Organization Details Last Updated DateTime 10/12/2021 100 mm[Hg] 72 mm[Hg] Nicki Morris [facility] 10/12/2021 12:21:08 Date Recorded Systolic blood pressure Diastolic blood pressure Provider Name and Address Organization Details Last Updated DateTime 04/04/2023 124 mm[Hg] 78 mm[Hg] Clover Nunez [facility] 04/04/2023 10:12:15 Date Recorded Systolic blood pressure Diastolic blood pressure Provider Name and Address Organization Details Last Updated DateTime 09/30/2023 122 mm[Hg] 72 mm[Hg] Clover Nunez [facility] 09/30/2023 12:02:31 Date Recorded Systolic blood pressure Diastolic blood pressure Provider Name and Address Organization Details Last Updated DateTime 10/22/2023 128 mm[Hg] 88 mm[Hg] Clover Nunez [facility] 10/22/2023 11:28:24 Date Recorded Systolic blood pressure Diastolic blood pressure Provider Name and Address Organization Details Last Updated DateTime 11/19/2023 118 mm[Hg] 68 mm[Hg] Clover Nunez [facility] 11/19/2023 16:53:53 Social History Question Answer Notes LastModified by Organization Details LastModified Time Tobacco Smoking Status Never Smoker LARISSA Wiley, [facility] 06/17/2019 11:42:19 Do You Have An Advance Directive? No Information not available 09/08/2014 What Is Your Level Of Alcohol Consumption? None Information not available 08/31/2020 If You Are , What Was Your Level Of Alcohol Consumption Prior To ? Occasional Information not available 08/31/2020 Plan Yes Epidural, Considering Vs Vaginal [email or web address] Information not available 08/11/2019 Is Blood Transfusion Acceptable In An Emergency? Yes Information not available 06/20/2018 What Is Your Level Of Caffeine Consumption? Moderate Information not available 08/31/2020 Live With Cats/exposure To Cat Litter No Information not available 06/17/2019 How Much Tobacco Do You Chew? None Information not available 09/08/2014 In The 14 Days Before Symptom Onset, Have You Had Close Contact With A Laboratory-confi rmed COVID-19 While That Case Was Ill? No Information not available 10/12/2021 In The 14 Days Before Symptom Onset, Have You Had Close Contact With A Person Who Is Under Investigation For COVID-19 While That Person Was Ill? No Information not available 10/12/2021 Have You Been To An Area Known To Be High Risk For COVID-19? No Information not available 10/12/2021 Are You Currently Employed? No Information not available 09/08/2014 What Type Of Diet Are You Following? REGULAR Information not available 09/08/2014 Which Illicit Or Recreational Drugs Have You Used? Marijuana Information not available 06/17/2019 Do You Or Have You Ever Used E-cigarettes Or Vape? Never Used Electronic Cigarettes Information not available 04/30/2019 Education 12 Information not available 09/08/2014 What Is The Highest Grade Or Level Of School You Have Completed Or The Highest Degree You Have Received? [id number] Information not available 08/31/2020 Have There Been Any Changes To Your Family Or Social Situation? No Information not available 06/17/2019 Frequent Air Travel No Information not available 06/17/2019 Illicit Drugs Pre- Marijuana Information not available 06/17/2019 How Many Years Have You Used Illicit Or Recreational Drugs? 4 Information not available 06/17/2019 Live Alone Or With Others? Alone Information not available 06/17/2019 Marital Status Single Informati on not available 06/17/2019 What Was The Date Of Your Most Recent Tobacco Screening? 11/19/2023 [email or web address] Information not available 11/19/2023 How Many Children Do You Have? 1 Information not available 04/13/2020 Are There Any Occupational Health Risks Where You Work? None Information not available 06/17/2019 Performs Monthly Self-breast Exam? No Information not available 09/08/2014 Do You Use Protection During Sex? Usually Information not available 09/08/2014 What Is Your Relationship Status? Single Information not available 09/08/2014 Do You Use Your Seat Belt Or Car Seat Routinely? Yes Information not available 08/31/2020 Seat Belts Used Routinely Yes Information not available 09/08/2014 Are You Sexually Active? Yes Information not available 09/08/2014 Do You Have Smoke And Carbon Monoxide Detectors In Your Home? Yes Information not available 06/17/2019 At What Age Did You Start Smoking Tobacco? 18 Information not available 09/08/2014 Are You Passively Exposed To Smoke? Yes Information not available 06/17/2019 Do You Or Have You Ever Used Smokeless Tobacco? Never Used Smokeless Tobacco Information not available 04/30/2019 How Much Tobacco Do You Smoke? No Information not available 04/30/2019 Smoking Pre- Yes Information not available 06/17/2019 General Stress Level Low Information not available 09/08/2014 Do You Use Any Illicit Or Recreational Drugs? No Information not available 10/12/2021 Do You Use Sunscreen Routinely? No Information not available 09/08/2014 Supplements None Information not available 06/17/2019 Has Tobacco Cessation Counseling Been Provided? Yes Information not available 09/16/2018 On What Date Was Tobacco Cessation Counseling Provided? 03/08/2021 Information not available 03/08/2021 How Many Years Have You Smoked Tobacco? 0 Information not available 06/17/2019 Have You Used IV Drugs? No Information not available 10/27/2020 Do You Or Have You Ever Used Any Other Forms Of Tobacco Or Nicotine? No Information not available 10/27/2020 Sex: Female Functional Status Question Answer Note LastModified by Organizat ion Details LastModified Time What is your exercise level? Occasional [email or web address] Information not available 07/23/2016 Mental Status None recorded. Family History Relationship Description Onset Age of this Age Resolved Age Notes LastModified by Organization Details LastModified Time Father Benito khan Not availa ble 07/20/2015 12:18:38 Mother Hypertensive disorder [email or web address] Not available 2015 12:18:38 Medical History Condition Response Heart Problems N Other Y High Blood Pressure N Breast Cancer N Kidney or Bladder Problems N Thyroid Problems N Blood Clots N Depression N Lung Disease N GI Problems N Acne N Breast Problem N Eating Disorder N Anemia N Anesthesia Complications N Headaches/Migraines N Anxiety Disorder N Diabetes N Ovarian Cancer N Muscle, Joint, or Bone Problems N Blood Transfusions N Arthritis N Seizures/Epilepsy N Polyps N Infertility N Acid Reflux (GERD) N Cancer N Stroke N Abuse/Domestic Violence N Asthma N Endometriosis N High Cholesterol N Hepatitis N Liver Disease N Heart Disease N Fibromyalgia N Pre-Eclampsia N Hypertension N Osteoporosis N Kidney Disease N Gynecological History Statement/Question Response Abnormal Pap Y Date of LMP 11/08/2023 On BCP's at Conception? N STIs/STDs Y HPV Vaccine Y Duration of Flow (days) 4 Age at Menarche 16 Current Control Method None Age at First Child 2 Sexually Active? Y Menses Monthly Y Date of Last Pap Smear 08/31/2020 Sexual Problems? N LMP Approximate Desired Control Method None Obstetrics History GPAL:G 2 P 2 0 0 2 Type Value Multiple Births 0 Full Term 2 Induced 0 Spontaneous 0 Premature 0 Living 2 Ectopics 0 Total 2 Immunizations Vaccine Type Date Status Note Provider Harpal kent and Address Organization Details Recorded Time Hep A, adult 4 completed Clover Nunez [place] null, [place] - [facility] 04/04/2023 10:05:05 Influenza, split virus, trivalent, preservative 5 completed Not Available [facility] 07/18/2019 02:32:02 Influenza, split virus, trivalent, preservative 5 completed Not Available [facility] 07/18/2019 02:32:02 HPV9 9 completed Not Available [facility] 07/18/2019 02:47:15 HPV9 9 completed Not Available [facility] 07/18/2019 02:38:45 HPV, quadrivalent 6 completed Jared lowe, [facility] 07/20/2015 13:00:01 Tdap 0 completed LARISSA Quesada, [facility] 11/11/2019 10:43:46 Tdap 1 completed LARISSA Wiley, [facility] 12/21/2020 17:48:40 Past Encounters Encounter ID Performer Location Encounter Start Date Encounter Closed Date Diagnosis/Indication Diagnosis SNOMED-CT Code Diagnosis ICD10 Code Diagnosis Note [id number] LARISAS Quesada (PROGRAM COUNSELOR) [address] [place] [address] [id number] 09/08/2014 11:29:40 09/08/2014 14:09:36 Gynecologic examination 29387746 Administra tion of influenza vaccine 10664337 Sexually t ransmitted infectious disease 1235856 [id number] LARISSA Quesada (PROGRAM COUNSELOR) [address] [place] [address] [id number] 10/04/2014 10:40:06 10/04/2014 12:26:19 Abnormal cervical Papanicolaou smear 754433517 Bacterial vaginosis [id number] Jared Rivas (PROGRAM COUNSELOR) [address] [place] [address] [id number] 07/20/2015 11:13:14 07/20/2015 13:34:52 Gynecologic examination 43732790 Z01.419 Abnormal c ervical Papanicolaou smear 699535892 R87.169 [id number] LARISSA Wiley (PROGRAM COUNSELOR) [address] [place] [address] [id number] 04/30/2016 11:36:55 05/01/2016 10:37:37 Candidiasis 47460562 B37.9 cyctitis Dysuria 74449134 R30.0 Candidiasis of vagina 72 118897 B37.3 [id number] Jared Odonnell [facility] (PROGRAM COUNSELOR) [address] [place] [address] [id number] 07/23/2016 11:35:19 07/27/2016 16:16:10 Gynecologic examination 11046043 R87.612 Vaginal discharge 945939 006 N89.8 Venereal d isease screening 860788146 Z11.3 [id number] [facility] [address] [place] [address] [id number] 12/24/2016 11:20:17 12/24/2016 15:46:18 Exposure to sexually transmissible disorder 277590495 Z20.2 [id number] Anastasiia Patino MD [facility] (PROGRAM COUNSELOR) [address] [place] [address] [id number] 06/20/2018 10:11:23 06/26/2018 13:35:43 Vaginal discharge 742869361 N89.8 Bacterial vaginosis 4197 52632 N76.0 Counseled about it. Candidiasis of vagina 72 543017 B37.3 Counseled about it. [id number] [facility] [address] [place] [address] [id number] 09/16/2018 15:01:38 09/16/2018 16:31:23 Gynecologic examination 34760948 Z01.419 Age appropriat e counseling done. Candidiasis of vagina 73 556166 B37.3 Counseled about it. Active or passive immunization 766206960 Z23 Family christopher nning surveillance 968457671 Z30.09 Counseled patient about different forms of control methods including Condoms, OCPS, Depo Provera, Nuva ring, patch, Nexplanon, IUD, -- etc. Patient refused any form of control at this time. She say she will call if she decided to start control. Venereal d isease screening 796672195 Z11.3 Patient refusing blood work for STD's. [id number] Jared Odonnell [facility] (PROGRAM COUNSELOR) [address] [place] [address] [id number] 04/30/2019 10:42:26 04/30/2019 13:08:29 Exposure to sexually transmissible disorder 718050425 Z20.2 Family christopher nning surveillance 034907304 Z30.09 Administra tion of viral vaccine 25271288 Z23 [id number] Jared Rivas [facility] (PROGRAM COUNSELOR) [address] [place] [address] [id number] 06/17/2019 10:36:10 06/18/2019 12:27:19 Routine care 365741963 Z34.90 Venereal d isease screening [id number] Z11.3 screening 2437 69831 Z36.85 Hyperemesi s gravidarum 39136417 O21.[address] reptococcus carrier [id number] 103 Z22.601 [id number] MICHAEL TORRES HC (PROGRAM COUNSELOR) [address] [place] [address] [phone] 0 07/02/2019 10:31:17 07/02/2019 11:10:35 Routine care 722720230 Z34.91 Syphilis 65876252 A53.9 Early syphilis - negative 03/2019, positive 05/2019. Allergy to penicillin . Will likely need penicillin allergy testing and desensitiz ation. Referral to [facility]. [id number] Jared Rivas HC (PROGRAM COUNSELOR) [address] [place] [address] [phone] 0 07/15/2019 10:12:49 07/15/2019 11:28:33 Routine care 163742205 Z34.90 Syphilis 95305867 A53.9 Managed by [facility] Group B St reptococcus carrier [id number] 103 Z22.553 [id number] Jared Rivas HC (PROGRAM COUNSELOR) [address] [place] [address] 95196-902 0 08/11/2019 10:16:02 08/12/2019 09:54:55 Routine care 714147380 Z34.90 Alpha-feto protein test - 456565160 Z36.1 Abnormal progesterone 13 5399082 R94.7 Syphilis 55291599 A53.9 Managed by [facility] [id number] Jared Rivas HC (PROGRAM COUNSELOR) [address] [place] [address] 40091-097 0 09/09/2019 10:16:45 09/10/2019 13:00:57 Routine care 106174904 Z34.[address] reptococcus carrier [id number] 103 Z22.330 Subchorionic hematoma 60 0381188 O41.8X99 Seen on US done on 08/12/19 [id number] MD Rob Hubbard HC (Adult Med) [address] [place] [address] [phone] 0 09/30/2019 13:46:56 10/02/2019 14:18:31 Influenza vaccination declined 198227393 Z28.21 Adult heal th examination 025831892 Z00.00 Eruption 199481454 R21 Fungal?Merline asma?Eczem a?Less likely contact dermatitis [id number] Jared iRvas HC (PROGRAM COUNSELOR) [address] [place] [address] [phone] 0 10/12/2019 10:15:50 10/23/2019 11:34:30 Routine care 489383086 Z34.90 Syphilis 49288068 A53.9 Managed by [facility] Group B St reptococcus carrier [id number] 103 Z22.448 [id number] LARISSA Quesada HC (PROGRAM COUNSELOR) [address] [place] [address] [phone] 0 11/11/2019 09:48:23 11/11/2019 10:58:51 Routine care 157339697 Z34.90 screening 2437 49401 Z36.9 [id number] Jared Rivas HC (PROGRAM COUNSELOR) [address] [place] [address] [phone] 0 12/02/2019 10:22:08 12/03/2019 07:17:06 Routine care 707819804 Z34.90 Acute urin thelma tract infection 709419383 N39.0 [id number] Jared Rivas HC (PROGRAM COUNSELOR) [address] [place] [address] [phone] 0 12/16/2019 10:28:20 12/16/2019 10:56:12 Routine care 458212585 Z34.03 Glucose to lerance test outside reference range 846830224 R73.[address] reptococcus carrier 2842394683 103 Z22.593 [id number] Jared Rivas (PROGRAM COUNSELOR) [address] [place] [address] [phone] 0 12/30/2019 10:32:47 02/02/2020 10:50:36 Routine care 141445916 Z34.[address] reptococcus carrier 4703140663 103 Z22.330 Anemia 394064150 D64.9 Syphilis 95508758 A53.9 Managed by [facility]; Consistent with syphilis infection (past or current [id number] Jared Rivas (PROGRAM COUNSELOR) [address] [place] [address] [phone] 0 01/07/2020 10:50:22 01/08/2020 07:58:47 Routine care 279475449 Z34.03 Glucose to lerance test outside reference range 982675001 R73.09 Normal 3 [address] [facility] reptococcus carrier 0138117200 103 Z22.330 Gastroesop hageal reflux disease without esophagitis 416491346 K21.9 [id number] MICHAEL TORRES (PROGRAM COUNSELOR) [address] [place] [address] [phone] 0 01/13/2020 10:01:00 01/15/2020 09:58:12 Routine care 016714884 Z34.91 JULES primigravi da at 38w1d. Endorses contractio ns, movement. Denies LOF, ROM. Reassuring fundal height and FHT of 151. 0/50%/-4. WTC/WLB reviewed. RTC in 1 week. Maternal s yphilis during - baby not yet delivered 062745155 O98.119 Last RPR with titer increase to 1:2. Repeat testing today. [facility] contacted and no treatment recommende d as increase in RPR titre was not 4-fold, no dissolutio ns, and no new symptoms. Patient advised if RPR continues to rise may require treatment at f/u appointmen t or during delivery. Group B St reptococcus carrier [id number] 103 Z22.330 Group B strep carrier. Will receive intrapartu m abx. [id number] Jared Belle Rivas (PROGRAM COUNSELOR) [address] [place] [address] [phone] 0 01/19/2020 10:12:32 01/20/2020 10:50:31 Routine care 719395752 Z34.03 [id number] Jared Belle Rivas HC (PROGRAM COUNSELOR) [address] [place] [address] [phone] 0 04/13/2020 14:43:35 04/14/2020 08:56:11 care 733769404 Z39.2 Family christopher nning surveillance 756163733 Z30.09 Acute urin thelma tract infection 351267389 N39.0 At [facility] ed risk of sexually transmitted infection 884018520 Z20.2 [id number] Jared Belle Rivas (PROGRAM COUNSELOR) [address] [place] [address] [phone] 0 08/31/2020 11:03:16 09/09/2020 06:47:13 Routine care 508703308 Z34.90 Venereal d isease screening 714291524 Z11.3 screening [address] reptococcus carrier 9157077172 103 Z22.330 Cyst of ri ght Bartholin's gland duct 1175702167 5492322 N75.0 Chronic id iopathic constipation 35361682 K59.04 Subchorionic hematoma 60 3875863 O41.8X99 Seen on US previous , MTHFR negative [id number] MICHAEL TORRES (PROGRAM COUNSELOR) [address] [place] [address] [phone] 0 09/14/2020 08:36:47 09/15/2020 11:52:04 Routine care 109824018 Z34.91 ACOG at approx 12 weeks. Test results reviewed. OB educationa l packet reviewed and will provided to patient at [facility] on 09/28/2020 . US 09/14/20 with EDC 03/29/21. Subchorionic hematoma 60 3900200 O41.8X99 09/14/20 ultrasound revealed 1.0 x 1.4 x 1.7cm subchorion ic hematoma. Started pt on aspirin and will follow up with additional ultrasound in 3-4 weeks. Continue progestero ne as prescribed . Pelvic rest. History of syphilis 1087 121931 134125 Z86.19 Previously treated. Titer 1:2. [id number] Jared Rivas (PROGRAM COUNSELOR) [address] [place] [address] [phone] 0 09/28/2020 11:40:33 09/29/2020 09:00:08 Routine care 967835933 Z34.90 Chronic id iopathic constipation 39742970 K59.[address] reptococcus carrier 2281431583 103 Z22.330 Subchorionic hematoma 60 0090607 O41.8X99 Seen on US previous , MTHFR negative Candidiasis of vagina 72 933674 B37.3 NAOMI [employer]IC[employer] Bacterial vaginosis 4197 58884 N76.0 Anemia 003468110 D64.9 [id number] Jared Rivas (PROGRAM COUNSELOR) [address] [place] [address] 97786-281 0 10/27/2020 10:09:28 10/31/2020 09:08:56 Routine care 541490828 Z34.[address] reptococcus carrier 5057282410 103 Z22.330 Subchorionic hematoma 60 2040798 O41.8X99 Seen on US in previous and 1st trimester US obtained 09/14, resolved per 10/14 US, MTHFR negative Syphilis 07248443 A53.9 Managed by [facility] Alpha-feto protein test - 041133788 Z36.1 Benign ess ential hypertension complicating , childbirth and the puerperium - not delivered 125435584 O10.731 [id number] Jared Rivas (PROGRAM COUNSELOR) [address] [place] [address] 63881-732 0 11/24/2020 10:04:38 11/25/2020 15:35:03 Bacterial vaginosis 323824130 N76.0 Candidiasis of vagina 72 095856 B37.3 [employer] [employer] Group B St reptococcus carrier [id number] 103 Z22.330 Syphilis 03755184 A53.9 Managed by [facility] Routine an tenatal care 182882072 Z34.90 Acute urin thelma tract infection 609408685 N39.0 [id number] Jared Rivas (PROGRAM COUNSELOR) [address] [place] [address] [phone] 0 12/21/2020 10:06:37 12/26/2020 22:07:18 Group B Streptococcus carrier 8188255425 103 Z22.330 Subchorionic hematoma 60 9706979 O41.8X99 Seen on US in previous and 1st trimester US obtained 09/14, resolved per 10/14 US, MTHFR negative Syphilis 33104729 A53.9 Managed by [facility] Routine an tenatal care 396018333 Z34.90 screening 2437 38507 Z36.9 Gastroesop hageal reflux disease 749240891 K21.9 [id number] Jared Rivas (PROGRAM COUNSELOR) [address] [place] [address] 03744-621 0 02/01/2021 16:39:04 02/04/2021 10:58:57 Routine care 610949051 Z34.[address] reptococcus carrier 5732549815 103 Z22.330 COVID-19 361765680 U07.1 Hyperemesi s gravidarum 97219109 O21.0 [id number] MICHAEL TORRES HC (PROGRAM COUNSELOR) [address] [place] [address] [phone] 0 02/15/2021 12:06:26 02/17/2021 13:53:01 Routine care 743569176 Z34.93 JULES at 34 weeks. c/b anemia, COVID-19 infection, h/o syphilis, and GBS carrier. No concerns. 32wk labs drawn today. WTC/WLB reviewed. RTC in 2 weeks. Venereal d isease screening 462905185 Z11.3 History of syphilis 1087 200118 913748 Z86.19 Previously treated. Last titer 1:2. Recheck today. Anemia 259402468 D64.9 Continue iron supplement . Repeat CBC today. [id number] Jared Rivas (PROGRAM COUNSELOR) [address] [place] [address] 03063-233 0 03/01/2021 10:30:44 03/01/2021 11:40:06 Routine care 247773500 Z34.[address] reptococcus carrier 0620182750 103 Z22.529 [id number] Jared Rivas HC (PROGRAM COUNSELOR) [address] [place] [address] [phone] 0 03/08/2021 10:18:46 03/09/2021 10:48:13 Routine care 793453921 Z34.[address] reptococcus carrier 1174535974 103 Z22.330 Anemia 920859787 D64.9 [id number] MICHAEL TORRES (PROGRAM COUNSELOR) [address] [place] [address] [phone] 0 03/15/2021 11:10:34 03/22/2021 13:01:30 Routine care 395035848 Z34.83 JULES at 38 weeks. c/b anemia, COVID-19 infection, h/o syphilis, and GBS carrier. Intermitte nt contractio ns, wtc/wlb reviewed. US on 03/10 showed an EFW of 12% and baby in breech position. Plan as below. RTC in [address] Odonnell. Anemia 918100785 D64.9 Continue iron supplement . Group B St reptococcus carrier 5062818755 103 Z22.330 Will receive intrapartu m abx. grow th restriction 64975393 O35.8XX9 EFW 12%. Weekly NST/BPP, testing scheduled tomorrow. Malpresent ation of fetus 68224723 O32.9XX9 Breech presentati on. Will likely need , scheduled for 03/24. [id number] Jared Rivas (PROGRAM COUNSELOR) [address] [place] [address] [phone] 0 03/22/2021 11:42:19 03/23/2021 09:53:06 Breech presentation 3792899 O32.1XX9 scheduled for on 03/24/21 Routine an tenatal care 893416441 Z34.83 grow th restriction 72588954 O35.8XX9 fgr 12th% (5-14) normal SALVATORE 14; weekly BPP with NST and deliver 39 weeks or earlier if indicated Malpresent ation of fetus 58989326 O32.9XX9 O32.1XX9 breech presentati on Group B St reptococcus carrier 2353359439 103 Z22.330 Will need antibiotic s at delivery [id number] MICHAEL SALDIVAR (Adult Med) [address] [place] [address] 06/27/2021 10:54:16 06/28/2021 16:41:56 care 237982311 Z39.2 30 y/o AAF with hx of syphillis and GBS carrier presents for PPVISIT and IUD insertion. She had a on Saturday 03/24 due to breech presentati on, all went well with surgery. Patient had a healthy boy who is doing great at home.Admit s to intermitte nt constipati on and having more gas since delivery.D enies symptoms of depression or sadness. Delivery b y elective section 076512177 Z37.9 She had a on Saturday 03/24 due to breech presentati on, all went well with surgery.De nies issues with healing of cervical scarOn PE: no concerns for infection or hernia Insertion of intrauterine contraceptive device 76958617 Z30.430 30 y/o AAF , She had a on Saturday 03/24 due to breech presentati on, all went well with surgery. Here today for IUD insertion. - Urine test negative in the office today- Consent form completed prior to the procedure- Mirena inserted in the office today, patient tolerated procedure well- provided her care instructio roberto for post IUD insertion, encouraged her to take ibuprofen with food PRN for pain can also apply heating back to help with cramps- encouraged her to avoid sexual intercours e for at least once week after placement, longer if still having pelvic pain and cramps. Encouraged to still wear protection to protect again STDs- abnormal bleeding is normal for the first 3-6 months after IUD insertion. If extremely heavy bleeding is present, please contact office- f/u in 6 weeks for string check Candidiasis of vagina 72 748459 B37.3 Complainin g of vaginal discharge and mild irritation to the outside of the vagina x 1-2 weeksWas recently on oral abx for URI symptomsOn PE: moderate amount of thick white discharge noted today- will start treatment for yeast infection, patient states she is not allergic to diflucan, thinks the hives were from the abx she was taking at the time, has had diflucan in the past without issues Vaginal discharge 682290 006 N89.8 Complainin g of vaginal discharge and mild irritation to the outside of the vagina x 1-2 weeksWas recently on oral abx for URI symptoms- nuswab completed today [id number] MICHAEL SALDIVAR (Adult Med) [address] [place] [address] [phone] 0 10/12/2021 12:08:42 10/13/2021 12:17:24 IUD check 660859438 Z30.431 She had an IUD placed on 06/27/2021 and bled for a month afterwards . Now she just spots once or twice a month. She has brief intermitte nt pelvic pain associated with the spotting. She reports 1 week of vaginal odor, urinary frequency, and mild clear vaginal discharge. Denies dyspareuni a - IUD strings visualized on exam, provided reasurranc e IUD is in correct place Increased frequency of urination 124308348 R35.0 She reports 1 week of vaginal odor, urinary frequency, and mild clear vaginal discharge. Denies dysuria, hematuria, fevers, urgency. - urinalysis performed and normal in the office today- nuswab completed Vaginal di scharge problem 613735075 N89.9 She reports 1 week of vaginal odor, urinary frequency, and mild clear vaginal discharge. She was diagnosed with a yeast infection in July and took diflucan but it gave her an allergic reaction- hives around mouth and throat. She was prescribed a different medication but was unable to pick it up.On physcial exam, thick liquid discharge was noted in vagina and on cervix. - nuswab performed to check for infection- offered topical vaginal cream but she would like to wait for nuswab results before beginning treatment. [id number] MICHAEL SALDIVAR (Adult Med) [address] [place] [address] [phone] 0 04/04/2023 09:56:40 04/09/2023 10:19:41 Removal of intrauterine contraceptive device done 0862347879 31310 Z30.432 She had Mirena IUD placed on 06/27/2021 . She wants it removed today because it is causing her pelvic pain, pelvic cramping, vaginal odor and constant vaginal discharge. Not interested in a different form of control on this time.- Mirena removed in the office today- patient aware fertility will return immediatel y after removal, use condoms for control to prevent Venereal d isease screening 076034679 Z11.3 Requesting to have STD testing, denies concern but states she does it annually.C omplaining of constant discharge with IUD- moderate amount of thin white/yell ow discharge noted in vaginal canal today- std testing completed Cyst of ri ght Bartholin's gland duct 1578552174 0046418 N75.0 Noted on exam today. No evidence of abscess at this time. Patient is asymptomat ic- discussed findings with patient during visit today- provided informatio n and discussed supportive care- if she develops concerning symptoms, contact our office Depression screening 171 554914 Z13.31 PHQ 2/9 was negative in office today (0 out of 27) [id number] [facility] [address] [place] [address] [phone] 0 09/30/2023 11:47:35 10/01/2023 21:02:28 Depression screening 474041789 Z13.31 PHQ9- {{Negative * Positive Mild Mode rate Sever e}} (0 out of 27) [facility] screening 769479236 Z13.39 GAD7- {{Negative * Positive Mild Mode rate Sever e}} (0 out of 21) Body mass index 20-24 - normal 207865900 Z68.24 BMI: 24.6 Vaginal discharge 065255 006 N89.8 Nuswab sample taken today- will call patient with resultsSta rt Metronidaz ole Take your antibiotic s as directed. Do not stop taking them just because you feel better. You need to take the full course of antibiotic s. Do not eat or drink anything that contains alcohol if you are taking metronidaz ole or tinidazole . Keep using your medicine if you start your period. Use pads instead of tampons while using a vaginal cream or suppositor y. Tampons can absorb the medicine. Wear loose cotton clothing. Do not wear nylon and other materials that hold body heat and moisture close to the skin. Do not scratch. Relieve itching with a cold pack or a cool bath. Do not wash your vaginal area more than once a day. Use plain water or a mild, unscented soap. Do not douche. Take itraconazo le after course of antibiotic s for yeast infection prevention Secondary amenorrhea 156 139712 N91.1 LMP 08/19/24Had IUD removed 04/04/23Dis cussed irregular menses after IUD removals Cyst of ri ght Bartholin's gland duct 2558217151 9673484 N75.0 Start Bactrim DSIf patient's symptoms worsen- call office and will refer to surgeon for I&D Venereal d isease screening 759880382 Z11.3 [id number] YOKO BRWON (Adult Med) [address] [place] [address] [phone] 0 10/22/2023 11:12:57 10/24/2023 11:07:50 Bacterial vaginosis 340203620 N76.0 Take your antibiotic s as directed. Do not stop taking them just because you feel better. You need to take the full course of antibiotic s. Do not eat or drink anything that contains alcohol if you are taking metronidaz ole or tinidazole . Keep using your medicine if you start your period. Use pads instead of tampons while using a vaginal cream or suppositor y. Tampons can absorb the medicine. Wear loose cotton clothing. Do not wear nylon and other materials that hold body heat and moisture close to the skin. Do not scratch. Relieve itching with a cold pack or a cool bath. Do not wash your vaginal area more than once a day. Use plain water or a mild, unscented soap. Do not douche. Allergy to sulfamethoxazole and/or trimethoprim 930698552 Z88.2 Pt was at ER for allergic reaction to sulfa drug.Sympt oms are getting betterDisc ussed moisturizi ng and going to ER if symptoms return Body mass index 25-29 - overweight 065554219 Z68.25 BMI 25.8 [id number] YOKO BROWN (Adult Med) [address] [place] [address] [phone] 0 11/19/2023 16:37:22 11/22/2023 14:54:05 Cyst of right Bartholin's gland duct 3581387240 2980412 N75.0 Referral for surgeon Body mass index 25-29 - overweight 904106648 Z68.25 BMI 25.3 Depression screening 171 570853 Z13.31 PHQ9- {{Negative * Positive Mild Mode rate Sever e}} (0 out of 27) Mental [facility] screening 210195345 Z13.39 GAD7- {{Negative * Positive Mild Mode rate Sever e}} (0 out of 21) Health Concerns Section Related Observation LastModified by Organization Detai ls LastModified Time None Recorded Concern Status LastModified by Organization Details LastModified Time None Recorded Advance Directives Directive N: Payers Encounter Date Sequence Insurance Name Policy Number Policy Herman Covered Member ID Herman Member ID Guarantor Name 10/12/2021 1 FORMERLY [facility] (MEDICAID HMO) [id number] [facility] [id number] [facility] 04/04/2023 1 FORMER[facility] (MEDICAID HMO) [id number] [facility] [id number] [facility] 09/30/2023 1 FOR[facility] (MEDICAID HMO) [id number] [facility] [id number] [facility] 10/22/2023 1 [facility] (MEDICAID HMO) [id number] [facility] [id number] [facility] 11/19/2023 1 [facility] (MEDICAID HMO) [id number] 0003 [facility] [id number] [facility] Notes Date Note Type Note Provider Name and Address Organization Details Recorded Time 10/12/2021 text/html Dotty is a 31 yo female presenting for an iud check She had an IUD placed on 06/27/2021 and bled for a month afterwards. Now she just spots once or twice a month. She has brief intermittent pelvic pain associated with the spotting. She reports 1 week of vaginal odor, urinary frequency, and mild clear vaginal discharge. Denies dysuria, hematuria, fevers, urgency. Last sexual intercourse was a month ago. No dyspareunia. She was diagnosed with a yeast infection in July and took diflucan but it gave her an allergic reaction- hives around mouth and throat. She was prescribed a different medication but [facility] couldn't fill it. The prescription was sent to a different pharmacy and they also didn't have it. She was never able to get the second medication. Denies fever, fatigue, chest pain, dyspnea, abdominal pain, nausea, vomiting. Last pap 08/31/2020 MICHAEL SALDIVAR Attn: Accounting[address] [place], [address], [facility] 10/12/2021 14:33:07 04/04/2023 text/html Dotty is a 32 yo female presenting for IUD removal. She had an IUD placed on 06/27/2021. She wants it removed today because it is causing her pelvic pain, pelvic cramping, vaginal odor and constant vaginal discharge. Not interested in a different form of control on this time. Requesting to have STD testing, denies concern but states she does it annually. Denies fever, chills, nausea, vomiting, pelvic pain, vaginal lesions, dysuria, urinary frequency, and hematuria. MICHAEL SALDIVAR Attn: [address] [place], [address], [facility] 04/04/2023 13:58:01 09/30/2023 text/html 33-year-old Afri can [place] female here to establish care. Pt is sexually active with 1 new male partner. Pt states that she has pain on the right side of her vagina when she is sexually active. was told she had inflamed Bartholin's duct last time she was here, unsure if that is what is causing the pain. Wants to get STI testing, has had vaginal discharge with odor x 2 weeks. Has not had menses since 08/19/23. Denies SOB, CP, GRIFFIN, N/V/D. Barbara Momin MD Attn: [address]ing[address] [place], [address], [facility] 10/01/2023 09:35:48 10/22/2023 text/html 33 y/o AA F here for ER f/u. PT was admitted to hospital after taking bactrim. Had skin eruptions all over her body. Pt was unaware she was allergic to sulfa medications, doesn't recall every being given any. Denies CP, GRIFFIN, SOB, N/V/D at this time.Pt needs refill on metronidazole since she threw all her medication away. JUNE WARNER PA-C Attn: Accounting[address], [place], [address], [facility] 10/22/2023 11:50:46 11/19/2023 text/html 33 y/o AA F here for f/u Bartholin's gland duct cyst. Pt had allergic reaction to medication prescribed and was not able to complete treatment. She is still having the cyst and it is bothering her very much. Would like referral to I&D. JUNE WARNER PA-C Attn: Accounting,[address], [place], [address], [facility] 11/19/2023 17:02:48 OBGyn Episode Ob Episode Information Episode Created Date Number of Fetuses Patient Bloodtype Patient rh Status Prepregnancy Weight lbs Domestic Partner Domestic Partner Phone Father Name [employer] Status 09/01/19 21 1 AB Positive 146 CLOSED Fetus Data First Name Last Name Admitted to NICU Weight (g) Sex Living Outcome Pediatric Complications Fetus ID Race Codes Race Delivery Type Ramir Niranjan Hibbl er false 3260.19 25 M Full Term [id number] 2058-6 [employer] can Problems Problem Notes Problem Name Start Date End Date Resolution Snomed Code Not e growth restriction 03/11/2021 33602214 fgr 12th% (5-14) normal SALVATORE 14; weekly BPP with NST and deliver 39 weeks or earlier if indicated Malpresentation of fetus 03/15/2021 76984613 COVID-19 02/01/2021 826402937 Breech presentation 03/17/2021 5711801 Syphilis 07/02/2019 84658443 Chronic idiopathic constipation 08/31/2020 82648298 Anemia 11/16/2019 560249669 Cyst of right Bartholin's gland duct 08/31/2020 [id number] Group B Streptococcus carrier 12/27/2016 [id number] Bacterial vaginosis 566553366 Candidiasis of vagina 88733290 Ryan Calculation Initial Ryan Date Initial Exam Date Initial Exam Provider Initial Ultrasound Date Last Menstrual Period Date Ultra Sound Weeks Gestation 03/29/2021 08/31/2020 [facility] 09/14/2020 06/27/2020 12 Eighteen To Twenty Week Ryan Update Ultra Sound Date Fundal Height At Umbil Quickening Date Ultra Sound Latest Weeks Gestation Final Ryan Confirmed By Final Ryan Confirmed Date Final Ryan Date Ultra Sound Latest Days Gestation 09/15/19 21 12 [facility] 11/24/2020 021 0 Pre-cj Flowsheet Flowsheet Date 08/31/2020 Silverman Score Blood Edema Fundus Height Fundus Units Glucose Ketones Leukocytes Nitrite Labor Signs Protein Cervic Dilation Cervic Effacement Cervic Station neg none 9 wks none negative neg Type Weight in lbs Pre/Post Dialysis Refused With clothes 146.697920691457 BP Diastolic BP Location Tested BP Systolic BP Type 74 122 sitting Fetus Heart Rate Present Fetus Movement Comments cyst of right bartholin glan d duct. Flowsheet Date 09/14/2020 Silverman Score Blood Edema Fundus Height Fundus Units Glucose Ketones Leukocytes Nitrite Labor Signs Protein Cervic Dilation Cervic Effacement Cervic Station Type Weight in lbs Pre/Post Dialysis Refused Stated 148.253186157466 BP Diastolic BP Location Tested BP Systolic BP Type Fetus Heart Rate Present Fetus Movement Comments ACOG via phone at approx 12 weeks. Test results reviewed. OB educational packet reviewed and will provided to patient at [facility] on 09/28/2020. US 09/14/20 with EDC 03/29/21 and small gerson. Repeat imaging in 3-4 weeks. Pelvic rest. Flowsheet Date 09/28/2020 Silverman Score Blood Edema Fundus Height Fundus Units Glucose Ketones Leukocytes Nitrite Labor Signs Protein Cervic Dilation Cervic Effacement Cervic Station neg none 14 wks none negative none neg Type Weight in lbs Pre/Post Dialysis Refused With clothes 148.969180688170 BP Diastolic BP Location Tested BP Systolic BP Type 78 118 sitting Fetus Heart Rate Present A 160 Present Fetus Movement A Yes Comments Flowsheet Date 10/27/2020 Silverman Score Blood Edema Fundus Height Fundus Units Glucose Ketones Leukocytes Nitrite Labor Signs Protein Cervic Dilation Cervic Effacement Cervic Station neg none 18 wks none negative Other (see comments ) neg Type Weight in lbs Pre/Post Dialysis Refused With clothes 152.680402715671 BP Diastolic BP Location Tested BP Systolic BP Type 80 142 sitting 70 132 sitting Fetus Heart Rate Present A 159 Present Fetus Movement A Yes Comments [facility] at 18 wk 1 d. Subchorion ic hematoma seen on previous US now resolved. Elevated BP reads; obtain PIH panel and MFM referral. Flowsheet Date 11/24/2020 Silverman Score Blood Edema Fundus Height Fundus Units Glucose Ketones Leukocytes Nitrite Labor Signs Protein Cervic Dilation Cervic Effacement Cervic Station neg none 22 wks none negative none neg Type Weight in lbs Pre/Post Dialysis Refused With clothes 153.933100460210 BP Diastolic BP Location Tested BP Systolic BP Type 60 90 sitting Fetus Heart Rate Present A 144 Present Fetus Movement A Yes Comments ob f/u Flowsheet Date 12/21/2020 Silverman Score Blood Edema Fundus Height Fundus Units Glucose Ketones Leukocytes Nitrite Labor Signs Protein Cervic Dilation Cervic Effacement Cervic Station neg none 26 wks none negative none neg Type Weight in lbs Pre/Post Dialysis Refused With clothes 0.0 BP Diastolic BP Location Tested BP Systolic BP Type 72 118 sitting Fetus Heart Rate Present A 145 Present Fetus Movement A Yes Comments Flowsheet Date 02/01/2021 Silverman Score Blood Edema Fundus Height Fundus Units Glucose Ketones Leukocytes Nitrite Labor Signs Protein Cervic Dilation Cervic Effacement Cervic Station none Type Weight in lbs Pre/Post Dialysis Refused Stated 160.217499298188 BP Diastolic BP Location Tested BP Systolic BP Type Fetus Heart Rate Present Fetus Movement A Yes Comments covid Flowsheet Date 02/15/2021 Silverman Score Blood Edema Fundus Height Fundus Units Glucose Ketones Leukocytes Nitrite Labor Signs Protein Cervic Dilation Cervic Effacement Cervic Station neg none 34 wks none negative none neg Type Weight in lbs Pre/Post Dialysis Refused With clothes 160.434178576609 BP Diastolic BP Location Tested BP Systolic BP Type 76 110 sitting Fetus Heart Rate Present A 148 Present Fetus Movement A Yes Comments [facility] at 34 weeks. No concerns . 32wk labs drawn today. WTC/WLB reviewed. Flowsheet Date 03/01/2021 Silverman Score Blood Edema Fundus Height Fundus Units Glucose Ketones Leukocytes Nitrite Labor Signs Protein Cervic Dilation Cervic Effacement Cervic Station neg none 34 cm none negative Pressure trace 0cm 0 % -4 Type Weight in lbs Pre/Post Dialysis Refused Weight 161.837097167192 BP Diastolic BP Location Tested BP Systolic BP Type 76 106 sitting Fetus Heart Rate Present A 161 Present Fetus Movement A Yes Comments WTC/WLB Flowsheet Date 03/08/2021 Silverman Score Blood Edema Fundus Height Fundus Units Glucose Ketones Leukocytes Nitrite Labor Signs Protein Cervic Dilation Cervic Effacement Cervic Station neg trace 38 cm none negative Backpain neg 0cm 0 % -4 Type Weight in lbs Pre/Post Dialysis Refused With clothes 165.019364067776 BP Diastolic BP Location Tested BP Systolic BP Type 72 124 sitting Fetus Heart Rate Present A 142 Present Fetus Movement A Yes Comments Mild back pain, otherwise no complaints. See LOBO next week. Flowsheet Date 03/15/2021 Silverman Score Blood Edema Fundus Height Fundus Units Glucose Ketones Leukocytes Nitrite Labor Signs Protein Cervic Dilation Cervic Effacement Cervic Station neg none 38 cm none trace Uterine Contract ions trace 0cm 0% -4 Type Weight in lbs Pre/Post Dialysis Refused With clothes 165.224923634767 BP Diastolic BP Location Tested BP Systolic BP Type 72 118 sitting Fetus Heart Rate Present A 140 Present Fetus Movement A Yes Comments [facility] at 38 weeks. Mild contra ctions this morning that have since resolved. wtc/wlb reviewed. US on 03/10 with EFW of 12.6% and baby in breech position. Weekly NST/BPP, scheduled tomorrow. Will likely need , plan for 03/24. RTC in [address] Odonnell. Flowsheet Date 03/22/2021 Silverman Score Blood Edema Fundus Height Fundus Units Glucose Ketones Leukocytes Nitrite Labor Signs Protein Cervic Dilation Cervic Effacement Cervic Station neg none 39 wks none negative Uterine Contract ions neg 0cm 50% -4 Type Weight in lbs Pre/Post Dialysis Refused With clothes 167.335744842910 BP Diastolic BP Location Tested BP Systolic BP Type 62 114 sitting Fetus Heart Rate Present A 142 Present Fetus Movement A Yes Comments Persistent breech presentati on requiring elective on 03/24/21. Flowsheet Date 06/27/2021 Silverman Score Blood Edema Fundus Height Fundus Units Glucose Ketones Leukocytes Nitrite Labor Signs Protein Cervic Dilation Cervic Effacement Cervic Station Type Weight in lbs Pre/Post Dialysis Refused With clothes 147.362443963202 BP Diastolic BP Location Tested BP Systolic BP Type 72 L arm 102 sitting Fetus Heart Rate Present Fetus Movement Comments Menstrual History Last Menstrual Date Menses Monthly On Bcp Conception Prior Menses Frequency Hcg Plus Date Menarche Onset Age 1206/27/2020 Genetic Screening And Infection History Question Response Note Patient's Age Will Be 35 Yea rs Or Older At Estimated Date of Delivery false Thalassemia (Bahraini, Malian, Mediterranean, Or Background): MCV < 80 false Neural Tube Defect (Meningomyelocele, Spina Bifi da, Or Anencephaly) false Congenital Heart Defect false Down Syndrome false Jesse-Sachs (eg, Gnosticism, Cajun, Macedonian-Burundian) f alse Yi Disease false Sickle Cell Disease Or Trait () false Hemophilia Or Other Blood Disorders false Muscular Dystrophy false Cystic Fibrosis false [place]'s Chorea false Mental Retardation/Autism false If Yes, Was Person Tested For Fragile X? false Other Inherited Genetic Or Chromosomal Disorder false Maternal Metabolic Disorder (eg, Type 1 Diabetes , PKU) false Patient Or Baby's Father Had A Child With Defects Not Listed Above false Recurrent Loss, Or A Stillbirth false Medications (including Suppl ements, Vitamins, Herbs, OTC Drugs), Illicit/Recreational Drugs, Alcohol false If Yes, Agent(s) And Strength/Dosage false Any Other Genetic History false Live With Someone With TB Or Exposed To TB false Patient Or Partner Has History Of Genital Herpes false Rash Or Viral Illness Since Last Menstrual Perio d false History Of STD, Gonorrhea, Chlamydia, HPV, Syphi lis true syphilis Other Infection History true GBS History of HIV false History of Hepatitis false Prior GBS-infected child false Plans and Education First Trimester Discussed Date Discussion Item Discussion Note Discuss ed By 09/14/2020 Anticipated course o f care [email or web address] 09/14/2020 Alcohol denies [email or web address] 09/14/2020 Intimate partner violence lobo [email or web address] 09/14/2020 Environmental/work hazards j [email or web address] 09/14/2020 Screening for aneuploidy jco [email or web address] 09/14/2020 Nutrition counseling ; special diet; dietary precautions (mercury, listeriosis) [email or web address] 09/14/2020 Childbirth classes/h ospital facilities schedule of classes provided [email or web address] 09/14/2020 HIV and other routin e tests [email or web address] 09/14/2020 Risk factors identif ied by history [email or web address] 09/14/2020 Weight gain counseling 25-35 pounds [email or web address] [email or web address] 09/14/2020 Exercise [email or web address] 09/14/2020 [facility]2020 Use of any medicatio ns (including supplements, vitamins, herbs, or OTC drugs) [email or web address] 09/14/2020 [facility] 09/14/2020 [facility] 09/14/2020 Tobacco/smoking cess ation counseling (ask, advise, assess, assist, and arrange) denies [email or web address] 09/14/2020 Illicit/recreational drugs [place] [id number] 09/14/2020 [facility] care [facility] 09[facility]14[facility]2020 [facility] 09/14/2020 Seat belt use [place] [id number] 09/14/2020 Indications for ultrasonography [place] [address] 09/14/2020 Avoidance of saunas or hot tubs [place] [address] 09/14/2020 Toxoplasmosis precau tions (cats/raw meat) [place] [address] Second Trimester Discussed Date Discussion Item Discussion Note Discuss ed By 03/23/2021 Selecting a care provider [facility] 03/23/[address] anning/tubal sterilization [facility] 03/23/2021 Depression screening (when indicated) [facility] 03/23/2021 Abnormal lab values [facility] 03/23/2021 Signs and symptoms of labor [facility] 03/23/2021 Intimate partner violence [facility] 03/23/2021 Tobacco/smoking cess ation counseling (ask, advise, assess, assist, and arrange) [facility] Third Trimester Discussed Date Discussion Item Discussion Note Discuss ed By 03/23/2021 Intimate partner violence [facility] 03/23/2021 Anesthesia plans [facility] 03/23/2021 education (n ewborn screening, jaundice, SIDS/safe sleeping position, car seat) [facility] 03/23/2021 Circumcision [facility] 03/23/[address]term [address] [facility] 03/23/2021 movement monitoring [facility] 03/23/2021 [facility] 03/23/2021 Labor signs [facility] 03/23/2021 [facility] 03[facility]23/2021 Family medical leave or disability forms [facility] 03/23/2021 Tobacco/smoking cess ation counseling (ask, advise, assess, assist, and arrange) [facility] 03/23/2021 Trial of labor after (TOLAC) counseling [facility] 03/23/2021 Signs and symptoms of preeclampsia [facility] Delivery Information Delivery Date Delivery Type Labor Anesthesia Weeks Gestation Incision Type Labor Labor Length Hrs Delivered By Post Complications Tubal Sterilization Discharge Date Comments 1 None Regional-Ep idural 39.2 false Jared Odonnell MD None false 03/26/2021 Discharge Information Feeding Method Contraceptive Method Maternal HG B and HCT Levels Bottle IUD Ob Episode Information Episode Created Date Number of Fetuses Patient Bloodtype Patient rh Status Prepregnancy Weight lbs Domestic Partner Domestic Partner Phone Father Name [employer] Status 06/17/20 19 1 AB Positive 134 CLOSED Fetus Data First Name Last Name Admitted to NICU Weight (g) Sex Living Outcome Pediatric Complications Fetus ID Race Codes Race Delivery Type Tarsha Nita se Hibbl er false [id number] [phone] F true Full Term PEDS Dr. Agatha ROBERT [id number] 4-5 Black or Afric an Ameri can Standard Vaginal Delivery Problems Problem Notes 01/07/2020 yes to epidural, Baby Girl, yes to circ if boy, bottle feeding, instructor ground services DR.Ahmad ROBERT, [facility] undecided (likely condoms) bottle feeding, Tarsha for her first name cb-[id number] Problem Name Start Date End Date Resolution Snomed Code Not e Bacterial vaginosis 376424762 Glucose tolerance test outside reference range 11/16/2019 919324442 Norm al 3 hour GTT Syphilis 07/02/2019 TREATMENT [id number] Candidiasis of vagina [id number] Anemia 11/16/2019 [id number] Subchorionic hematoma 07/22/2019 [id number] 04 resolved. Group B Streptococcus carrier 12/27/2016 [id number] Ryan Calculation Initial Ryan Date Initial Exam Date Initial Exam Provider Initial Ultrasound Date Last Menstrual Period Date Ultra Sound Weeks Gestation 01/26/2020 06/17/2019 [facility] 06/17/2019 04/21/2019 8 Eighteen To Twenty Week Ryan Update Ultra Sound Date Fundal Height At Umbil Quickening Date Ultra Sound Latest Weeks Gestation Final Ryan Confirmed By Final Ryan Confirmed Date Final Ryan Date Ultra Sound Latest Days Gestation 06/17/20 19 8 [email or web address] 07/03/2019 01/26/20 20 1 Pre- Flowsheet Flowsheet Date 06/17/2019 Silverman Score Blood Edema Fundus Height Fundus Units Glucose Ketones Leukocytes Nitrite Labor Signs Protein Cervic Dilation Cervic Effacement Cervic Station neg none 8 wks none negative neg Type Weight in lbs Pre/Post Dialysis Refused Weight 134.743844957121 BP Diastolic BP Location Tested BP Systolic BP Type 72 120 sitting Fetus Heart Rate Present Fetus Movement Comments Initial labs ordered and com pleted Flowsheet Date 07/02/2019 Silverman Score Blood Edema Fundus Height Fundus Units Glucose Ketones Leukocytes Nitrite Labor Signs Protein Cervic Dilation Cervic Effacement Cervic Station Type Weight in lbs Pre/Post Dialysis Refused Weight 137.131641732839 BP Diastolic BP Location Tested BP Systolic BP Type 64 108 sitting Fetus Heart Rate Present Fetus Movement Comments ACOG. New OB packet reviewed and provided to patient. Flowsheet Date 07/15/2019 Silverman Score Blood Edema Fundus Height Fundus Units Glucose Ketones Leukocytes Nitrite Labor Signs Protein Cervic Dilation Cervic Effacement Cervic Station neg none 12 wks none negative none 1+ Type Weight in lbs Pre/Post Dialysis Refused With clothes 133.728967618681 BP Diastolic BP Location Tested BP Systolic BP Type 64 120 sitting Fetus Heart Rate Present A 151 Present Fetus Movement Comments 2nd Trimester US ordered @SS M Flowsheet Date 08/11/2019 Silverman Score Blood Edema Fundus Height Fundus Units Glucose Ketones Leukocytes Nitrite Labor Signs Protein Cervic Dilation Cervic Effacement Cervic Station 16 cm none Type Weight in lbs Pre/Post Dialysis Refused With clothes 138.603370740974 BP Diastolic BP Location Tested BP Systolic BP Type 68 102 sitting Fetus Heart Rate Present A 147 Present Fetus Movement A Yes Comments Flowsheet Date 09/09/2019 Silverman Score Blood Edema Fundus Height Fundus Units Glucose Ketones Leukocytes Nitrite Labor Signs Protein Cervic Dilation Cervic Effacement Cervic Station neg trace 20 wks none negative Backpain neg Type Weight in lbs Pre/Post Dialysis Refused Weight 150.854951279827 BP Diastolic BP Location Tested BP Systolic BP Type 74 130 sitting Fetus Heart Rate Present A 145 Present Fetus Movement A Yes Comments Flowsheet Date 09/30/2019 Silverman Score Blood Edema Fundus Height Fundus Units Glucose Ketones Leukocytes Nitrite Labor Signs Protein Cervic Dilation Cervic Effacement Cervic Station Type Weight in lbs Pre/Post Dialysis Refused Weight 155.20622140076 BP Diastolic BP Location Tested BP Systolic BP Type 64 116 sitting Fetus Heart Rate Present Fetus Movement Comments Flowsheet Date 10/12/2019 Silverman Score Blood Edema Fundus Height Fundus Units Glucose Ketones Leukocytes Nitrite Labor Signs Protein Cervic Dilation Cervic Effacement Cervic Station neg none 24 cm none negative none neg Type Weight in lbs Pre/Post Dialysis Refused With clothes 154.986465552881 BP Diastolic BP Location Tested BP Systolic BP Type 66 120 sitting Fetus Heart Rate Present A 144 Present Fetus Movement A Yes Comments ob f/u Flowsheet Date 11/11/2019 Silverman Score Blood Edema Fundus Height Fundus Units Glucose Ketones Leukocytes Nitrite Labor Signs Protein Cervic Dilation Cervic Effacement Cervic Station neg none 29 wks none negative none neg Type Weight in lbs Pre/Post Dialysis Refused With clothes 161.907645085681 BP Diastolic BP Location Tested BP Systolic BP Type 66 110 sitting Fetus Heart Rate Present A 161 Present Fetus Movement A Yes Comments gtt/tdap/us Flowsheet Date 12/02/2019 Silverman Score Blood Edema Fundus Height Fundus Units Glucose Ketones Leukocytes Nitrite Labor Signs Protein Cervic Dilation Cervic Effacement Cervic Station neg none 32 wks none negative none neg Type Weight in lbs Pre/Post Dialysis Refused With clothes 163.181771636437 BP Diastolic BP Location Tested BP Systolic BP Type 66 118 sitting Fetus Heart Rate Present A 154 Present Fetus Movement A Yes Comments wtc/wlb Flowsheet Date 12/16/2019 Silverman Score Blood Edema Fundus Height Fundus Units Glucose Ketones Leukocytes Nitrite Labor Signs Protein Cervic Dilation Cervic Effacement Cervic Station neg none 34 cm none negative none neg Type Weight in lbs Pre/Post Dialysis Refused BP Diastolic BP Location Tested BP Systolic BP Type Fetus Heart Rate Present A 144 Present Fetus Movement A Yes Comments gestational diabetes screen- 143 3hr gtt Flowsheet Date 12/30/2019 Silverman Score Blood Edema Fundus Height Fundus Units Glucose Ketones Leukocytes Nitrite Labor Signs Protein Cervic Dilation Cervic Effacement Cervic Station neg none 37 cm none trace Backpain 1+ Type Weight in lbs Pre/Post Dialysis Refused With clothes 171.121531054535 BP Diastolic BP Location Tested BP Systolic BP Type 68 110 sitting Fetus Heart Rate Present A 151 Present Fetus Movement A Yes Comments Flowsheet Date 01/07/2020 Silverman Score Blood Edema Fundus Height Fundus Units Glucose Ketones Leukocytes Nitrite Labor Signs Protein Cervic Dilation Cervic Effacement Cervic Station neg trace 37 wks none negative none neg 0cm 0% -4 Type Weight in lbs Pre/Post Dialysis Refused With clothes 172.798523216562 BP Diastolic BP Location Tested BP Systolic BP Type 76 128 sitting Fetus Heart Rate Present A 150 Present Fetus Movement A Yes Comments WTC/WLB. Flowsheet Date 01/13/2020 Silverman Score Blood Edema Fundus Height Fundus Units Glucose Ketones Leukocytes Nitrite Labor Signs Protein Cervic Dilation Cervic Effacement Cervic Station neg none 40 cm none negative Uterine Contract ions neg 0cm 50% -4 Type Weight in lbs Pre/Post Dialysis Refused Weight 170.923666395057 BP Diastolic BP Location Tested BP Systolic BP Type 80 118 sitting Fetus Heart Rate Present A 151 Present Fetus Movement A Yes Comments JULES primigravida at 38w1d. E ndorses contractions, movement. Denies LOF, ROM. WTC/WLB reviewed. RTC in 1 week. Flowsheet Date 01/19/2020 Silverman Score Blood Edema Fundus Height Fundus Units Glucose Ketones Leukocytes Nitrite Labor Signs Protein Cervic Dilation Cervic Effacement Cervic Station neg none 40 cm none negative none 1+ 0cm 80% - 2 Type Weight in lbs Pre/Post Dialysis Refused With clothes 173.953986946537 BP Diastolic BP Location Tested BP Systolic BP Type 74 122 sitting Fetus Heart Rate Present A 154 Present Fetus Movement A Yes Comments Induction of labor on 2019 at 0500. Flowsheet Date 04/13/2020 Silverman Score Blood Edema Fundus Height Fundus Units Glucose Ketones Leukocytes Nitrite Labor Signs Protein Cervic Dilation Cervic Effacement Cervic Station Type Weight in lbs Pre/Post Dialysis Refused With clothes 154.992808913704 BP Diastolic BP Location Tested BP Systolic BP Type Fetus Heart Rate Present Fetus Movement Comments Menstrual History Last Menstrual Date Menses Monthly On Bcp Conception Prior Menses Frequency Hcg Plus Date Menarche Onset Age 1004/21/2019 Genetic Screening And Infection History Question Response Note Patient's Age Will Be 35 Yea rs Or Older At Estimated Date of Delivery false Thalassemia (Bahraini, Malian, Mediterranean, Or Background): MCV < 80 false Neural Tube Defect (Meningom yelocele, Spina Bifida, Or Anencephaly) false Congenital Heart Defect false Down Syndrome false Jesse-Sachs (eg, Gnosticism, Cajun, Macedonian-Burundian) f alse Yi Disease false Sickle Cell Disease Or Trait () false Hemophilia Or Other Blood Disorders false Muscular Dystrophy false Cystic Fibrosis false Raheem's Chorea false Mental Retardation/Autism false If Yes, Was Person Tested For Fragile X? false Other Inherited Genetic Or Chromosomal Disorder false Maternal Metabolic Disorder (eg, Type 1 Diabetes , PKU) false Patient Or Baby's Father Had A Child With Defects Not Listed Above false Recurrent Loss, Or A Stillbirth false Medications (including Suppl ements, Vitamins, Herbs, OTC Drugs), Illicit/Recreational Drugs, Alcohol false If Yes, Agent(s) And Strength/Dosage false Any Other Genetic History false Live With Someone With TB Or Exposed To TB false Patient Or Partner Has History Of Genital Herpes false Rash Or Viral Illness Since Last Menstrual Perio d false History Of STD, Gonorrhea, Chlamydia, HPV, Syphi lis true Syphilis Other Infection History true GBS,bv,c a History of HIV false History of Hepatitis false Prior GBS-infected child false Plans and Education First Trimester Discussed Date Discussion Item Discussion Note Discuss ed By 07/02/2019 Anticipated course o f care [email or web address] 07/02/2019 Alcohol [email or web address] 07/02/2019 Intimate partner violence lobo [email or web address] 07/02/2019 Environmental/work hazards j [email or web address] 07/02/2019 Screening for aneuploidy [email or web address] [email or web address] 07/02/2019 Nutrition counseling ; special diet; dietary precautions (mercury, listeriosis) [email or web address] 07/02/2019 Childbirth classes/h ospital facilities [email or web address] 07/02/2019 HIV and other routin e tests [email or web address] 07/02/2019 Risk factors identif ied by history [email or web address] 07/02/2019 Weight gain counseling jcort [email or web address] 07/02/2019 Exercise [email or web address] 07/02/2019 Teratogens [email or web address] 07/02/2019 Use of any medicatio ns (including supplements, vitamins, herbs, or OTC drugs) [place] [id number] 07/02/2019 01/07/2020 Bottl e feed,, cb-rma [place] [address] 07/02/2019 Sexual activity [place] [address] 07/02/2019 Tobacco/smoking cess ation counseling (ask, advise, assess, assist, and arrange) [place] [address] 07/02/2019 [facility] 07/[facility] Dental care [place] [address] 07/02/2019 [place] [id number] 07/02/2019 Seat belt use [place] [address] 07/02/2019 Indications for ultrasonography [place] [address] 07/02/2019 Avoidance of saunas or hot tubs [place] [address] 07/02/2019 Toxoplasmosis precau tions (cats/raw meat) [place] [address] Second Trimester Discussed Date Discussion Item Discussion Note Discuss ed By 01/07/2020 Selecting a care provider 01/07/[address] Agatha ROBERT [place] [facility], [facility] 01/07/2020 family planning/tubal sterilization 01/07/2020 [facility] Discussed Date Discussion Item Discussion Note Discuss ed By 01/07/2020 Intimate partner violence [facility] 01/07/2020 Anesthesia plans 01/07/2020 Yes to epidural, -a [facility] 01/07/2020 [place] education (n ewborn screening, jaundice, SIDS/safe sleeping position, car seat) [facility] 01/07/2020 Circumcision 01/07/2020 baby girl, yes to circ if boy, -a [facility] 01/07/2020 Postterm counseling [facility] 01/07/2020 movement monitoring [facility] 01/07/2020 01/07/2020 bottl e feed, cb-a [facility] 01/07/2020 Labor signs [facility] 01/07/2020 depression [facility] 01/07/2020 Family medical leave or disability forms [facility] 01/07/2020 Tobacco/smoking cess ation counseling (ask, advise, assess, assist, and arrange) [facility] 01/07/2020 Signs and symptoms o f preeclampsia [facility] Delivery Information Delivery Date Delivery Type Labor Anesthesia Weeks Gestation Incision Type Labor Labor Length Hrs Delivered By Post Complications Tubal Sterilization Discharge Date Comments 0 Sponta neous Regional-Ep idural 39.3 None false 01/23/2020 Discharge Information Feeding Method Contraceptive Method Maternal HG B and HCT Levels Bottle condoms
[2024-07-30 12:35] LABS: Eosinophils Percent Auto 0.3 % (0-4.4); Hemoglobin 8.8 g/dL (12.0-15.0); Immature Granulocyte Absolute 0.11 K/mm3 (0.00-0.031); Immature Granulocyte Percent A 1.5 % (0-0.5); Lymphocytes Absolute Auto 1.08 K/mm3 (0.9-3.2); Lymphocytes Percent Auto 14.5 % (18.3-44.2); Mean Corpuscular HGB Conc 28.4 g/dl (32-36); Mean Corpuscular Hemoglobin 22.1 pg (26-34); Mean Corpuscular Volume 77.9 fl (80-100); Mean Platelet Volume 11.6 fl (7.4-10.4); Monocytes Absolute Auto 0.4 K/mm3 (0.1-0.6); Monocytes Percent Auto 5.6 % (2.6-8.5); Neutrophils Absolute Auto 5.8 K/mm3 (1.3-6.7); Neutrophils Percent Auto 78.1 % (45.5-73.1); Nucleated Red Blood Cells Perc 0.4 % (0.0-0.2); Platelet Count Result 199 k/mm3 (150-375); Red Blood Count 3.98 M/mm3 (4.2-5.4); Red Cell Distribution Width 17.5 % (11.5-14.5); White Blood Count 7.4 K/mm3 (4.5-10.0)
[2024-07-30 13:12] LABS: Hypochromasia 1+; Platelet Estimate Adequate (Adequate); Schistocytes None Seen
[2024-07-30 13:26] LABS: HIV 1/2 Ab P24 Ag Result Negative (Negative)
[2024-07-31 13:21] LABS: Rapid Plasma Reagin Non-Reactive (NonReactive)
== END 2024-07-30 11:27 | disposition home or self-care (01) ==
LOC: ANHLAB 11:31
PROVIDERS: Visit Provider Obstetrics & Gynecology
DX: Z34.93 Encounter for supervision of normal pregnancy, unspecified, third trimester (principal); Z3A.00 Weeks of gestation of pregnancy not specified
CPT/HCPCS: 36415; 85025; 86592; 86703; 86850; 86900; 86901; G0432

== ENCOUNTER 2024-07-31 05:34 | Inpatient (IN) | payer OTHER, SELFPAY ==
[2024-07-31] VITALS (45 sets, daily range): BP systolic 106–132; BP diastolic 57–89; PULSE 62–98; RESP 14–18; TEMP 36.9–37.4; O2SAT 95–100; BMI 31.5
--- OUTSIDE RECORDS SUMMARY | 2024-07-31 02:38 | XMS_ITS | Patient Health Summary ---
Author Organization [facility] Address [address] [place] [address] Care Team Providers Care Global Chief Experience Officer Name Role Phone Unavailable Primary Care Provider Unavailabl e Note from [facility],non-owned Affiliates and Associated Physician Practices is amultiple site organization consisting of ambulatory clinics and hospital sitesin [place], [place], [place] and [place]. This disclosure is being madepursuant to the Care Everywhere program and may not contain all information available regarding this patient. Last updated 18.[facility] Get[employer]ift[employer] Allergies * Augmentin(Urticaria) -Medium Criticality * Diflucan(Urticaria) [...] CDT Respiratory Rate 18 07/13/2019 2:04 PM ONSITE CASE MANAGER Oxygen Saturation 100% 07/13/2019 2:04 PM ONSITE CASE MANAGER Inhaled Oxygen Concentration - - Weight 68.9 kg (152 lb) 11/30/2020 11:42 AM CDT Height 165.1 cm (5' 5 ) 07/13/2019 8:05 AM ONSITE CASE MANAGER Body Mass Index 25.29 07/13/2019 8:05 AM ONSITE CASE MANAGER Procedures * SONOGRAM - COMPLETE(Performed 11/30/2020) Performed [...] CDT Narrative 11/30/2020 1:50 PM CDT ? [facility] Maternal Medicine ? [facility] ?PHONE: ??FAX: Pat. Name: ?JUNO HUERTA Pat. No: ?[id number] Study Date: ?? 11/30/2020 ??10:41am , Age: ? 1990, 30 Pregnancies: ?? 2, Para 1 Height: ? 65 in Weight: ? 143 lb LMP: ?06/27/2020 GA by LMP: ?22w2d GA by US: ? 23w3d ?? MARION: 03/26/2021 GA Selected: ??22w2d (LMP) MARION: ?04/03/2021 Referring MD: Jared Odonnell MD Engineer Automated Equipment: ??Mary Jenkins, RADHA, RDNACHO CPT4: ? 55099,95632 BMI: ?23.79 Hist/Ind: ? Anatomy ?VDRL positive MEASUREMENTS & AGE ? GROWTH EVALUATION Measurement ??GA ? Range ? Srce %for GA Ratios ----- ---- ------- BPD ??5.8 cm 23w5d (75w3g-59s1a) Hadl BPD 89% FL/BPD 0.70 HC ??21.4 cm 23w3d (18t2p-06h9a) Hadl HC ??81% FL/AC ??0.22 (0.20 - 0.24) AC ??18.7 cm 23w3d (51o4d-85e1p) Hadl AC ??79% HC/AC ??1.14 (1.04 - 1.23) FL ?? 4.0 cm 23w0d (52g2x-45m1o) Hadl FL ??65% CI ? 0.76 (0.70 - 0.86) HL ?? 3.7 cm 23w1d (75n4c-27u6b) Yann HL ??63% Cere 2.7 cm 24w0d (05o1i-66e6s) Hill Cere89% GA for sonogram 23w3d (00f5x-23a0n) ?? Weight Estimate: based on (HL,BPD,HC,AC,FL,Cere) Avg [...] <Electronic Signature> ??11/30/2020 01:49pm Jared Odonnell MD [facility] ORDERABLES * (ABNORMAL) TREPONEMA PALLIDUM AB (07/13/2019 10:32 AM ONSITE CASE MANAGER) [facility] Treponema pallidum Antibody (TP-PA) Reactive( A) Non Reactive 07/14/2019 1:08 PM ONSITE CASE MANAGER [facility] ([facility]) Blood BLOOD SPECIMEN / Unknown Lab Venipuncture / Unknown 07/13/2019 10:32 AM ONSITE CASE MANAGER 07/13/2019 10:58 AM ONSITE CASE MANAGER Narrative [facility] ([facility]) - 07/14/2019 1:08 PM ONSITE CASE MANAGER Performed at: ??01 - [facility] [address] ??[id number] Order Expediter: Capo Sanchez PhD, Phone: ??[phone] Lesli Wahl MD LAB - SEROLOGY ORDER KAYLEE [facility] ([facility]) [address] [place] [address] * (ABNORMAL) RPR TITER (07/13/2019 10:31 AM ONSITE CASE MANAGER) [facility] RPR Titer 1:2(A) (none) 07/14/2019 1:05 PM ONSITE CASE MANAGER [facility] Blood BLOOD SPECIMEN / Unknown Lab Venipuncture / Unknown 07/13/2019 10:31 AM ONSITE CASE MANAGER 07/13/2019 10:58 AM ONSITE CASE MANAGER Lesli Wahl MD LAB - CHEMISTRY MILA OSMAN Performing Organization Address [facility] Co de Phone Number [facility] [address] [place] [phone] * (ABNORMAL) SYPHILIS ANTIBODY CASCADING REFLEX (07/13/2019 10:31 AM ONSITE CASE MANAGER) Treponema pallidum Antibody REACTIVE( A) Non Reactive 07/13/2019 12:01 PM ONSITE CASE MANAGER [facility] Comment:Additional testing r equired for evaluation of syphilis. An RPR has been reflexively ordered and is in progress. Blood BLOOD SPECIMEN / Unknown Lab Venipuncture / Unknown 07/13/2019 10:31 AM ONSITE CASE MANAGER 07/13/2019 10:58 AM ONSITE CASE MANAGER Lesli Wahl MD LAB - SEROLOGY ORDER KAYLEE Performing Organization Address [facility] de Phone Number [facility] [address] [place] [phone] * (ABNORMAL) RPR (07/13/2019 10:31 AM ONSITE CASE MANAGER) RPR REACTIVE( A) Non Reactive 07/14/2019 1:05 PM ONSITE CASE MANAGER [facility] Comment: Treponemal antibodies and non-treponemal antibodies detected. Consistent with current syphilis infection. Clinical evaluation should be performed to identify signs, symptoms, or past history of infection. Blood BLOOD SPECIMEN / Unknown Lab Venipuncture / Unknown 07/13/2019 10:31 AM ONSITE CASE MANAGER 07/13/2019 10:58 AM ONSITE CASE MANAGER Lesli Wahl MD LAB - CHEMISTRY MILA OSMAN Performing Organization Address [facility] Co de Phone Number [facility] [address] [place] [phone] * URINALYSIS REFLEX MICROSCOPIC REFLEX CULTURE (07/13/2019 8:59 AM ONSITE CASE MANAGER) Color UA Yellow Straw, Yellow 07/13/2019 9:34 AM [facility] Clarity UA Clear Clear 07/13/2019 9:34 AM [facility] Glucose UA Negative Negative 07/13/2019 9:34 AM [facility] Bilirubin UA Negative Negative 07/13/2019 9:34 AM [facility] Ketone UA Negative Negative 07/13/2019 9:34 AM [facility] Specific [place] UA 1.026 1.005 - 1.030 07/13/2019 9:34 AM [facility] Blood UA Negative Negative 07/13/2019 9:34 AM [facility] pH UA 5.0 5.0 - 8.0 pH 07/13/2019 9:34 AM [facility] Protein UA Negative Negative 07/13/2019 9:34 AM [facility] Urobilinogen UA Negative Negative mg/dL 07/13/2019 9:34 AM [facility] Nitrite UA Negative Negative 07/13/2019 9:34 AM [facility] Leukocyte UA Negative Negative 07/13/2019 9:34 AM [facility] Urine Microscopy Urine microscopy not indicated 07/13/2019 9:34 AM [facility] Reflex Status Culture not indicated 07/13/2019 9:34 AM [facility] Urine URINE SPECIMEN OBTAINED BY CLEAN CATCH PROCEDURE / Unknown Collection / Unknown 07/13/2019 8:59 AM ONSITE CASE MANAGER 07/13/2019 8:59 AM [facility] Narrative [facility] - 07/13/2019 9:34 AM [facility] Lesli Wahl MD LAB - URINALYSIS ORD ERABLES [facility] [address] [place] [phone] * TYPE + SCREEN PANEL (07/13/2019 8:15 AM [facility]) ABO AB 07/13/2019 10:20 AM [facility] Rh Type Positive 07/13/2019 10:20 AM [facility] Comment:History checked. Col lect retype. Antibody Screen Positive 07/13/2019 10:20 AM [facility] Blood Bank BLOOD SPECIMEN / Unknown Venipuncture / Unknown 07/13/2019 8:15 AM ONSITE CASE MANAGER 07/13/2019 9:00 AM ONSITE CASE MANAGER Lesli Wahl MD LAB - BLOOD BANK ORD ERABLES [facility] [address] [place] [address] * ANTIBODY IDENTIFICATION (07/13/2019 8:15 AM ONSITE CASE MANAGER) Pathologist [facility] Antibody Identification Anti-Michelle 07/13/2019 10:34 AM ONSITE CASE MANAGER [facility] Blood Bank BLOOD SPECIMEN / Unknown Venipuncture / Unknown 07/13/2019 8:15 AM ONSITE CASE MANAGER 07/13/2019 9:00 AM ONSITE CASE MANAGER Lesli Wahl MD LAB - BLOOD BANK ORD ERABLES Performing Organization Address [facility] Co de Phone Number [facility] [address] [place] [address] * (ABNORMAL) CBC W AUTO DIFFERENTIAL (07/13/2019 8:15 AM ONSITE CASE MANAGER) WBC 7.5 4.4 - 10.7 x10E9/L 07/13/2019 9:15 AM [facility] WBC Corrected 07/13/2019 9:15 AM [facility] RBC 4.60 3.80 - 5.20 x10E12/L 07/13/2019 9:15 AM [facility] Hemoglobin 11.4(L) 12.0 - 15.6 gm/dL 07/13/2019 9:15 AM [facility] Hematocrit 38.7 35.9 - 45.5 % 07/13/2019 9:15 AM [facility] MCV 84.1 80.7 - 98.3 fl 07/13/2019 9:15 AM [facility] MCH 24.8(L) 26.7 - 34.0 pg 07/13/2019 9:15 AM [facility] MCHC 29.5(L) 30.8 - 35.9 gm/dL 07/13/2019 9:15 AM [facility] Platelet Count 216 153 - 416 x10E9/L 07/13/2019 9:15 AM [facility] RDW-CV 15.4(H) 12.1 - 14.9 % 07/13/2019 9:15 AM [facility] MPV 12.3 9.4 - 12.9 fl 07/13/2019 9:15 AM [facility] Neutrophils % 78.2(H) 44.0 - 73.0 % 07/13/2019 9:15 AM [facility] Lymphocytes % 15.4(L) 20.0 - 43.0 % 07/13/2019 9:15 AM [facility] Monocytes % 4.7(L) 5.0 - 13.0 % 07/13/2019 9:15 AM [facility] Eosinophils % 0.5 0.0 - 6.0 % 07/13/2019 9:15 AM [facility] Basophils % 0.3 0.0 - 2.0 % 07/13/2019 9:15 AM [facility] Immature Granulocytes 0.9 0 - 1 % 07/13/2019 9:15 AM [facility] Neutrophil Absolute 5.87 2.01 - 7.14 x10E9/L 07/13/2019 9:15 AM [facility] Lymphocytes Absolute 1.16 1.07 - 3.94 x10E9/L 07/13/2019 9:15 AM [facility] Monocytes Absolute 0.35 0.26 - 1.07 x10E9/L 07/13/2019 9:15 AM [facility] Eosinophils Absolute 0.04 0 - 0.47 x10E9/L 07/13/2019 9:15 AM [facility] Basophils Absolute 0.02 0 - 0.08 x10E9/L 07/13/2019 9:15 AM [facility] Immature Granulocytes Absolute 0.07(H) 0.00 - 0.06 x10E9/L 07/13/2019 9:15 AM [facility] nRBC Auto 0 /100 WBC 07/13/2019 9:15 AM [facility] Blood BLOOD SPECIMEN / Unknown Venipuncture / Unknown 07/13/2019 8:15 AM ONSITE CASE MANAGER 07/13/2019 9:05 AM ONSITE CASE MANAGER Lesli Wahl MD LAB - HEMATOLOGY ORD ERABLES [facility] [address] [place] [address] * (ABNORMAL) COMPREHENSIVE METABOLIC PANEL (07/13/2019 8:15 AM [facility]) Glucose 84 70 - 105 mg/dL 07/13/2019 9:44 AM [facility] Sodium 135(L) 136 - 145 mmol/L 07/13/2019 9:44 AM [facility] Potassium 3.6 3.5 - 4.7 mmol/L 07/13/2019 9:44 AM [facility] Chloride 103 98 - 107 mmol/L 07/13/2019 9:44 AM [facility] CO2 22(L) 23 - 31 mmol/L 07/13/2019 9:44 AM [facility] Calcium 9.8 8.4 - 10.4 mg/dL 07/13/2019 9:44 AM [facility] Anion Gap 10 8 - 16 mmol/L 07/13/2019 9:44 AM [facility] BUN 8 7 - 18.7 mg/dL 07/13/2019 9:44 AM [facility] Creatinine 0.68 0.57 - 1.11 mg/dL 07/13/2019 9:44 AM [facility] Alkaline Phosphatase 63 40 - 150 U/L 07/13/2019 9:44 AM [facility] ALT 10 0 - 61 U/L 07/13/2019 9:44 AM [facility] AST 15 5 - 34 U/L 07/13/2019 9:44 AM [facility] Protein Total 8.3 6.4 - 8.3 gm/dL 07/13/2019 9:44 AM [facility] Albumin 4.4 3.5 - 5.2 gm/dL 07/13/2019 9:44 AM [facility] Bilirubin Total 0.4 0.2 - 1.0 mg/dL 07/13/2019 9:44 AM [facility] eGFR by MDRD >60 >60 mL/min/1.7 3m2 07/13/2019 9:44 AM [facility] eGFR by MDRD >60 >60 mL/min/1.7 3m2 07/13/2019 9:44 AM [facility] Blood BLOOD SPECIMEN / Unknown Venipuncture / Unknown 07/13/2019 8:15 AM ONSITE CASE MANAGER 07/13/2019 9:04 AM ONSITE CASE MANAGER Lesli Wahl MD LAB - CHEMISTRY MILA OSMAN Performing Organization Address [facility] Co de Phone Number [facility] [address] [place] [phone] * (ABNORMAL) PROTEIN CREATININE RATIO URINE RANDOM PNL (07/13/2019 8:15 AM ONSITE CASE MANAGER) Protein Urine 23.2(H) <11.9 mg/dL 07/13/2019 9:45 AM ONSITE CASE MANAGER [facility] Creatinine Urine 226.45 mg/dL 07/13/2019 9:45 AM [facility] Protein/Creatin ine Ratio Urine 0.10 07/13/2019 9:45 AM [facility] Urine URINE SPECIMEN OBTAINED BY CLEAN CATCH PROCEDURE / Unknown Collection / Unknown 07/13/2019 8:15 AM ONSITE CASE MANAGER 07/13/2019 9:02 AM ONSITE CASE MANAGER Lesli Wahl MD LAB - URINE CHEMISTR Y ORDERABLES Performing Organization Address [facility] Co de Phone Number [facility] [address] [place] [address] * SKIN TEST PPD - POINT OF CARE (02/23/2019 11:48 AM CDT) PPD 0mm normal, ppd placed on 02/21/19 @ 10:40am, ppd read on 02/23/19 @ 11:47am. Other MISCELLANEOUS SAMPLE S / Unknown 02/23/2019 11:48 AM CDT Cathleen Ho NATIONAL INVESTIGATIVE PRODUCER-DRUG SAFETY SCIENTIST LAB - POINT OF CA RE ORDERABLES
--- OUTSIDE RECORDS SUMMARY | 2024-07-31 02:38 | XMS_ITS | Clinical Summary ---
Author Organization [facility] Address [address] [place] [id number] Care Team Providers Care Cut Order Hand Name Role Phone Unavailable Primary Care Provider [...]
--- OUTSIDE RECORDS SUMMARY | 2024-07-31 02:38 | XMS_ITS | CONTINUITY OF CARE DOCUMENT ---
Author Name jacqueline phillips Address Unknown Organization [facility] Address [address] [place] [address] Phone [phone] Care Team Providers Care Installation Superintendent Name Role Phone Theresa Hampton MD Unavailable JEAN CLAUDE EASTON MD Unavailable INSURANCE PROVIDERS Payer name Policy type / Coverage type [place] red democr[employer] [facility] Medicaid 0 [id number]
--- OUTSIDE RECORDS SUMMARY | 2024-07-31 02:38 | XMS_ITS | Referral Summary ---
Author Organization [facility] Address [address] [place] [address] Care Team Providers Care Meat Counter Clerk Name Role Phone Unavailable Primary Care Provider Unavailabl e Source Comments [facility],non-owned Affiliates and Associated Physician Practices is amultiple site organization consisting of ambulatory clinics and hospital sitesin [place] and [place]. This disclosure is being madepursuant to the Care Everywhere program and may not contain all information available regarding this patient. Last updated 18.[facility] Allergies Active Allergy Reactions Criticality Noted Date [...] of occult chronic hypertension. Records obtained from [place] for evaluation of dizziness and lightheadedness on [...] reactive [06/17/19] LMP1=[facility] 01/26/20 Dating 06/17/19 8w1d=01/26/20 [id number] Social History Tobacco Use Types Packs/Day Years [...] CDT Respiratory Rate 18 07/13/2019 2:04 PM TWISTING FRAME OPERATOR Oxygen Saturation 100% 07/13/2019 2:04 PM TWISTING FRAME OPERATOR Inhaled Oxygen Concentration - - Weight 68.9 kg (152 lb) 11/30/2020 11:42 AM CDT Height 165.1 cm (5' 5 ) 07/13/2019 8:05 AM TWISTING FRAME OPERATOR Body Mass Index 25.29 07/13/2019 8:05 AM TWISTING FRAME OPERATOR Functional Status Functional Status Response Date [...]
--- OUTSIDE RECORDS SUMMARY | 2024-07-31 02:38 | XMS_ITS | Clinical Summary ---
Author Organization [facility] Address [address] [place] [address] Care Team Providers Care Hardwood Floor Layer Name Role Phone Unavailable Primary Care Provider Unavailabl e Source Comments [facility],non-owned Affiliates and Associated Physician Practices is amultiple site organization consisting of ambulatory clinics and hospital sitesin [place], [place], [place] and [place]. This disclosure is being madepursuant to the Care Everywhere program and may not contain all information available regarding this patient. Last updated 18.[facility] Allergies Active Allergy Reactions Criticality Noted Date [...] of occult chronic hypertension. Records obtained from [facility] for evaluation of dizziness and lightheadedness on [...] reactive [06/17/19] LMP1=[facility] 01/26/20 Dating 06/17/19 8w1d=01/26/20 [id number] Family History Medical History Relation Name Comments [...] CDT Respiratory Rate 18 07/13/2019 2:04 PM REQUIREMENTS ANALYST Oxygen Saturation 100% 07/13/2019 2:04 PM REQUIREMENTS ANALYST Inhaled Oxygen Concentration - - Weight 68.9 kg (152 lb) 11/30/2020 11:42 AM CDT Height 165.1 cm (5' 5 ) 07/13/2019 8:05 AM REQUIREMENTS ANALYST Body Mass Index 25.29 07/13/2019 8:05 AM REQUIREMENTS ANALYST Plan of Treatment Health Maintenance Due Date [...]
[2024-07-31] MEDS: ACETAMINOPHEN 500 MG TABLET 1000 MG PO (06:05)
[2024-07-31] MEDS: LACTATED RINGERS 1,000 ML 125 ML IV CONT ×3 (06:09→09:28)
[2024-07-31] MEDS: CLINDAMYCIN 900 MG/D5W 50 ML 900 MG/50 ML PIGGYBACK 50 MG IVPB (06:50)
--- NOTE | 2024-07-31 06:58 | P.PNAN_ITS ---
Anes - Initial Pre Proc Eval Procedure: Operation Date: 07/31/24 07:30 Proposed Procedures p Repeat Section - Andrea Machado MD Date/Time: 07/31/24 06:58 Surgeon: Andrea Machado MD Pre Op Diagnosis: C/S Patient Data Age: 33 Gender: F Height: 1.68 m Weight: 88.6 kg Last Vital Signs Temp 37.4 C 07/31/24 06:31 Pulse 84 07/31/24 06:15 Resp 18 07/31/24 06:31 BP 130/85 07/31/24 06:15 Pulse Ox 100 07/31/24 06:30 O2 Del Method Room Air 07/31/24 06:10 Allergies Allergy/AdvReac Type Severity Reaction Status Date / Time fluconazole Allergy Severe Other Verified 07/28/24 14:12 Sulfa (Sulfonamide Allergy Severe Rash Verified 07/28/24 14:12 Antibiotics) amoxicillin Allergy Itching Verified 07/28/24 14:12 Home Medications ?Medication ?Instructions ?Recorded ?Confirmed ?Type PNV 153-FA 400 mcg-om3 35 mg-dha 1 tablet PO DAILY 03/03/21 07/08/24 History 25 mg-epa 5 mg-fish oil chew tablet ( Gummies) nitrofurantoin 100 mg PO Q12H 7 days #14 caps 07/08/24 Rx monohydrate/macrocrystals 100 mg capsule (Macrobid) Patient hx anesthesia problems: none Family hx anesthesia problems: none Results Review: All pre-operative results and documents have been reviewed as part of the pre- operative evaluation. [facility] Past Medical History Medical History Anemia Bacterial vaginosis Candidiasis COVID-19 affecting in third trimester False labor growth restriction malpresentation GBS carrier Spontaneous onset of labor Syphilis affecting , antepartum Term delivered Family History Family History Mother Hypertension Father Lymphoma Social History Social History Smoking status: Never smoker Second hand tobacco smoke exposure: No Alcohol intake: never Substance use: current Substance use type: marijuana Do You Feel Safe in your Home?: Yes Lack of Transportation: No Lack of Food: Never True Current Housing: I Have Housing Concerned About Future Housing: No Difficulty Paying Gas/Electric Bills: No Difficulty Paying for Meds: No Currently Unemployed: No Education: High School Diploma/GED Difficulty w/ Childcare or Family Care: No Living arrangements: with family Gender identity (if verbalized by the patient): Female Sexual Orientation (if Verbalized by the Patient): Straight or Heterosexual Spiritual care concerns: No Anes - Eval Final PreProcedure Day of Procedure 07/31/24 06:58 Patient weight: obese Heart: regular rate and rhythm Lungs: clear to auscultation and normal air movement Airway: Mallampati scale class II Neurological: alert and oriented Last oral intake: >/= 8 hours ASA classification: II Emergent: no Anesthetic plan: proceed Anesthesia type and monitoring: regional spinal and standard monitoring Results Review: All pre-operative results and documents have been reviewed as part of the pre- operative evaluation. Informed Consent: The patient's anesthetic plan and its attendant risks and benefits were discussed with the patient/family/POA. Questions were solicited and answers provided to the satisfaction of the patient/family/POA.
[2024-07-31] MEDS: FAMOTIDINE 20 MG/2 ML VIAL IV PUSH (07:22)
[2024-07-31] MEDS: ONDANSETRON INJ 4 MG/2 ML VIAL IV PUSH (07:23)
--- NOTE | 2024-07-31 07:25 | P.HP_ITS ---
H&P: HPI History of Present Illness Date/Time: 07/31/24 07:25 Chief Complaint: Term , previous Narrative: 33-year-old female, multiparous, at term with previous delivery. We have agreed to perform repeat delivery. The patient understands the details of the procedure. The procedure has been explained in detail. She understands the risks. She understands that injuries may occur that result in hospitalization, more surgery, and severe illness. She understands risk of hemorrhage and infection. She denies any chest pain or shortness of breath. She denies any nausea, vomiting, fever, chills. Review of Systems Review of Systems: All systems reviewed & are unremarkable except as noted in HPI and below Constitutional: Constitutional: Denies chills, Denies fatigue, Denies fever(s) and Denies weakness Eyes: Eyes: Denies blurry vision, Denies change in vision, Denies loss of peripheral vision, Denies loss of vision, Denies other visual disturbances and Denies eye pain ENT: Denies vertigo, Denies dizziness, Denies hearing loss, Denies mouth pain, Denies nasal obstruction, Denies neck mass and Denies neck pain Cardiovascular: Cardiovascular: Denies chest pain, Denies diaphoresis, Denies syncope, Denies leg edema and Denies dyspnea Respiratory: Respiratory: Denies chest congestion, Denies cough, Denies hemoptysis, Denies dyspnea and Denies wheezing Gastrointestinal: Gastrointestinal: Denies abdominal pain, Denies constipation, Denies diarrhea, Denies nausea and Denies vomiting Genitourinary: Genitourinary: Denies hematuria, Denies change in libido, Denies nocturia, Denies genital lesions, Denies flank pain and Denies urinary urgency Musculoskeletal: Musculoskeletal: Denies abnormal gait, Denies back pain, Denies myalgias, Denies arthralgias, Denies joint swelling, Denies muscle weakness and Denies neck pain Integumentary/Breasts: Skin/Breast: Denies swelling, Denies breast pain, Denies breast mass, Denies dry skin, Denies nipple discharge, Denies unusual bruising and Denies jaundice Neurologic: Denies Neuro-related abnormal movements, Denies Abnormal speech present, Denies abnormal gait, Denies behavioral changes, Denies confusion, Denies vertigo, Denies dizziness, Denies syncope, Denies loss of vision, Denies memory loss, Denies convulsions and Denies weakness Psychiatric: Psychiatric: Denies abnormal sleep pattern, Denies behavioral changes, Denies change in libido, Denies confusion, Denies depression, Denies anhedonia and Denies memory loss Endocrine: Endocrine: Reports no additional endocrine complaints, Denies change in libido and Denies fatigue Hematologic/Lymphatic: Hematologic/Lymphatic: Reports no additional hematologic/lymphatic complaints Allergic/Immunologic: Allergic/Immunologic: Reports no additional allergic/immunologic complaints and Denies wheezing PMFSH Past Medical History Medical History Anemia Bacterial vaginosis Candidiasis COVID-19 affecting in third trimester False labor growth restriction malpresentation GBS carrier Spontaneous onset of labor Syphilis affecting , antepartum Term delivered Family History Family History Mother Hypertension Father Lymphoma Social History Social History Smoking status: Never smoker Second hand tobacco smoke exposure: No Alcohol intake: never Substance use: current Substance use type: marijuana Do You Feel Safe in your Home?: Yes Lack of Transportation: No Lack of Food: Never True Current Housing: I Have Housing Concerned About Future Housing: No Difficulty Paying Gas/Electric Bills: No Difficulty Paying for Meds: No Currently Unemployed: No Education: High School Diploma/GED Difficulty w/ Childcare or Family Care: No Living arrangements: with family Gender identity (if verbalized by the patient): Female Sexual Orientation (if Verbalized by the Patient): Straight or Heterosexual Spiritual care concerns: No Meds Home Medications and Allergies Home Medications ?Medication ?Instructions ?Recorded ?Confirmed ?Type PNV 153-FA 400 mcg-om3 35 mg-dha 1 tablet PO DAILY 03/03/21 07/08/24 History 25 mg-epa 5 mg-fish oil chew tablet ( Gummies) nitrofurantoin 100 mg PO Q12H 7 days #14 caps 07/08/24 Rx monohydrate/macrocrystals 100 mg capsule (Macrobid) Allergies Allergy/AdvReac Type Severity Reaction Status Date / Time fluconazole Allergy Severe Other Verified 07/28/24 14:12 Sulfa (Sulfonamide Allergy Severe Rash Verified 07/28/24 14:12 Antibiotics) amoxicillin Allergy Itching Verified 07/28/24 14:12 Vital Signs Vital Signs - 24 hr 07/31/24 06:05 07/31/24 06:06 07/31/24 06:10 Temperature Pulse Rate 96 Respiratory Rate Blood Pressure 124/89 Pulse Oximetry 98 100 Oxygen Delivery 07/31/24 06:10 07/31/24 06:15 07/31/24 06:20 Temperature Pulse Rate 84 Respiratory Rate Blood Pressure 130/85 Pulse Oximetry 99 99 Oxygen Delivery Room Air 07/31/24 06:25 07/31/24 06:30 07/31/24 06:31 Temperature 99.3 F Pulse Rate Respiratory Rate 18 Blood Pressure Pulse Oximetry 100 100 Oxygen Delivery Exam Const: General: cooperative, healthy appearing, comfortable and no acute dis tress Orientation/consciousness: oriented to person, oriented to place and oriented to time HENMT: Head: normal to inspection Ears: external ears normal Face/Nose/Sinus: Normal external nose present and normal facial exam Face and sinus: normal facial exam Eyes: General: appearance normal, both eyes and all related structures Neck: Neck: normal visual inspection, trachea midline and supple Resp: Auscultation: clear to auscultation bilaterally, no crackles, no rales, no rhonchi and no wheezes Cardio: Rate: regular rate Rhythm: regular rhythm Heart sounds: no clic k, no murmurs and no rubs GI: GI Palp: No abdominal tenderness, No Soft to palpation, No Tenderness to palpation present (GI) and No Palpable mass present Auscultation: normal bowel sounds Skin: General skin exam: normal color and no rashes or lesions noted Neuro: General: oriented to person, oriented to place and oriented to time Extrem: General: normal to inspection, no joint enlargement, no clubbing, cyanosis or edema, no pedal edema and no calf tenderness Psych: Appearance: grossly normal Mental Status: mental status grossly normal Speech and movement: Normal speech and movement present Assessment and Plan Assessment and plan (1) Term : Code(s): Z34.90 - Encounter for supervision of normal , unspecified, unspecified trimester Status: Acute (2) delivery delivered: Code(s): O82 - Encounter for delivery without indication Status: Acute Assessment and Plan: 33-year-old multiparous female at term with previous delivery. We have agreed to repeat she understands risks, benefits, and alternatives. She has completed informed consent process and is ready to proceed.
--- NOTE | 2024-07-31 07:27 | WPDHPUPDATE1 ---
History and Physical Update Update Date/Time: 07/31/24 07:27 History and Physical has been reviewed, including an updated exam of the patient. There are NO changes in the patient's condition. Risks, benefits, and alternatives have been discussed and questions answered. Patient agrees to proceed with procedure.
--- NOTE | 2024-07-31 08:27 | W.PM.OBCSD ---
OB - Delivery Note Procedure Delivery date: 07/31/24 Pre-op diagnosis: Previous Delivery Post-op Diagnosis: Same Prior to decision for section, ACOG/SMFM labor guidelines were considered and discussed with the patient and staff. Decision made to proceed with the section.: Yes Procedure Performed: Repeat Surgeon: Andrea Machado MD Anesthesia type: Spinal Description of Procedure/Findings: The patient was taken the operating room.? She was prepped and draped in dorsal supine position with a leftward tilt.? This was done after spinal anesthetic was applied.? A low-transverse skin incision was made and carried down till of the fascia with the knife.? The fascial incision was made with the knife.? The fascial incision was extended laterally with Hurt scissors.? The fascia was tented upward superiorly and inferiorly the rectus muscles were dissected off bluntly.? The rectus muscles were the midline.? The preperitoneal fat and peritoneum were dissected open bluntly at the superior aspect of the rectus muscles.? The peritoneal incision was extended superior and inferior with good position of bladder.? The uterine incision was made with a scalpel down to the level of the amniotic cavity.? The amniotic cavity was entered bluntly.? The was delivered.? The cord was clamped and cut and the was handed off to waiting pediatric staff.? Cord bloods were obtained.? The placenta was removed manually.? The uterus was exteriorized.? The uterus was cleared of all clots, debris and membranes.? The uterus was closed in 0 Vicryl running lock fashion.? An imbricating over a was placed along the incision line as well.? The uterus was returned to the abdomen.? The gutters were cleared of all clots and debris.? The fascia was closed with 0 Vicryl running fashion.? The subcutaneous tissue was irrigated pinpoint bleeders were cauterized.? The skin was closed with subcuticular absorbable mahsa.? The skin incision line was covered with glue.? The patient tolerated the procedure well.? She has taken recovery room in stable condition.? Sponge lap and needle counts were correct x2.? Estimated Blood Loss: 900 Packing: No Complications: No immediate complications Condition: Stable
[2024-07-31] MEDS: MORPHINE SULFATE INJ (*CRX) 10 MG/ML AMP 2.5 MG IV PUSH (09:20)
[2024-07-31] MEDS: OXYTOCIN 30 UNITS/NS 500 ML 30 UNITS/500 ML BAG 125 UNITS IV CONT (09:28)
[2024-07-31 10:43] LABS: Hematocrit 18.5 % (37.0-47.0); Hemoglobin 5.1 g/dL (12.0-15.0)
--- NOTE | 2024-07-31 10:58 | PC.NURSE ---
1043- Dr. Machado notified of patient's hemoglobin of 5.1, orders received to transfuse 2 units of RBC.
[2024-07-31 11:27] LABS: Hematocrit 33.7 % (37.0-47.0)
[2024-07-31 11:28] LABS: Hemoglobin 9.4 g/dL (12.0-15.0)
--- NOTE | 2024-07-31 11:32 | PC.NURSE ---
Redrawn H&H to 9.4, Dr. Machado notified and orders received to hold blood.
--- NOTE | 2024-07-31 11:50 | OBPPTRN ---
Patient transferred to post room #281 via stretcher. Support person present. Oriented to unit, room, information board, rooming in, admission packet and security measures. Patient verbalizes understanding.
[2024-07-31] MEDS: KETOROLAC 15 MG/ML VIAL (*BKC) IV PUSH ×2 (13:09→19:22)
[2024-07-31] MEDS: ACETAMINOPHEN 325 MG TABLET 650 MG PO ×2 (13:09→19:21)
[2024-07-31] MEDS: DOCUSATE SODIUM 100 MG CAPSULE PO (13:10)
[2024-07-31] MEDS: SIMETHICONE 80 MG TAB.CHEW PO ×2 (13:10→17:40)
[2024-07-31] MEDS: HYDROcodone/acetaminophen (*CRX) 10-325 MG TABLET 1 TAB PO ×2 (14:12→20:27)
[2024-07-31] MEDS: LIDOCAINE 5% PATCH 1 PATCH TRANSDERM (14:15)
[2024-07-31] MEDS: DEXTROSE 5%/0.45% SOD CHL 1,000 ML 125 ML IV CONT (16:39)
[2024-07-31] MEDS: POLYSACCHARIDE IRON COMPLEX 150 MG CAPSULE PO (17:40)
[2024-08-01] MEDS: KETOROLAC 15 MG/ML VIAL (*BKC) IV PUSH ×2 (01:13→08:20)
[2024-08-01] MEDS: SIMETHICONE 80 MG TAB.CHEW PO ×4 (01:14→16:53)
[2024-08-01] MEDS: ACETAMINOPHEN 325 MG TABLET 650 MG PO ×4 (01:14→20:54)
[2024-08-01 05:54] VITALS: BP 119/80; PULSE 93; RESP 16; TEMP 36.7; O2SAT 100
[2024-08-01 06:29] LABS: Basophils Percent Auto 0.2 % (0.2-1.2); Eosinophils Percent Auto 0.4 % (0-4.4); Hematocrit 23.8 % (37.0-47.0); Immature Granulocyte Absolute 0.07 K/mm3 (0.00-0.031); Immature Granulocyte Percent A 0.9 % (0-0.5); Immature Platelet Fraction Pct 9.6 % (0.9-11.2); Lymphocytes Absolute Auto 1.03 K/mm3 (0.9-3.2); Lymphocytes Percent Auto 12.6 % (18.3-44.2); Mean Corpuscular HGB Conc 28.6 g/dl (32-36); Mean Corpuscular Hemoglobin 22.8 pg (26-34); Mean Corpuscular Volume 79.9 fl (80-100); Mean Platelet Volume 12.7 fl (7.4-10.4); Monocytes Absolute Auto 0.6 K/mm3 (0.1-0.6); Monocytes Percent Auto 6.7 % (2.6-8.5); Neutrophils Absolute Auto 6.5 K/mm3 (1.3-6.7); Neutrophils Percent Auto 79.2 % (45.5-73.1); Nucleated Red Blood Cells Perc 0.2 % (0.0-0.2); Platelet Count Result 146 k/mm3 (150-375); Red Blood Count 2.98 M/mm3 (4.2-5.4); Red Cell Distribution Width 17.4 % (11.5-14.5); White Blood Count 8.2 K/mm3 (4.5-10.0)
[2024-08-01 06:40] LABS: Hemoglobin 6.8 g/dL (12.0-15.0)
[2024-08-01 07:15] VITALS: BP 147/85; PULSE 94; RESP 18; TEMP 37.3; O2SAT 100
--- NOTE | 2024-08-01 07:15 | PC.NURSE ---
Pt assisted up to the bathroom, Pt denies dizziness or lightheadedness. Ambulated great. Pt unable to void at this time, assisted back to bed
[2024-08-01 07:21] LABS: Anisocytosis 1+; Hypochromasia 1+; Ovalocytes 1+; Platelet Estimate Adequate (Adequate); Schistocytes None Seen
--- NOTE | 2024-08-01 07:30 | PC.NURSE ---
Discussed a blood transfusion with the patient, went over the consent. Pt verbalized understanding and signed the consent. Blood will be ordered and administered when ready from the lab
--- NOTE | 2024-08-01 07:51 | PC.NURSE ---
Called the lab to order blood and lab would like a redraw on the H&H to confirm low level.
[2024-08-01 08:16] LABS: Hematocrit 25.8 % (37.0-47.0); Hemoglobin 7.3 g/dL (12.0-15.0)
[2024-08-01] MEDS: DOCUSATE SODIUM 100 MG CAPSULE PO ×2 (08:20→16:53)
[2024-08-01] MEDS: POLYSACCHARIDE IRON COMPLEX 150 MG CAPSULE PO ×2 (08:21→16:53)
--- NOTE | 2024-08-01 08:31 | PC.NURSE ---
Dr. Machado notified of lab redraw and new level. We will hold off on the blood transfusion and see how the patient is doing today to determine if a transfusion is necessary.
--- NOTE | 2024-08-01 09:55 | PM.OBPNVD ---
OB - PN: Subj Subjective Date/time seen: 08/01/24 09:55 Patient comments: no complaints, pain well controlled, tolerating diet and flatus present OB - PN: Obj Data Labs 08/01/24 08:05 Labs: Laboratory Results - last 24 hr 07/30/24 07/31/24 07/31/24 12:11 10:33 11:22 WBC RBC Hgb 5.1 L* D 9.4 L D Hct 18.5 L* 33.7 L MCV MCH MCHC RDW Plt Count MPV Immature Gran % (Auto) Neut % (Auto) Lymph % (Auto) [place] % (Auto) Eos % (Auto) Baso % (Auto) Lymph # (Auto) [place] # (Auto) Eos # (Auto) Baso # (Auto) Abs Immat Gran (auto) Absolute Neuts (auto) Absolute Nucleated RBC Nucleated RBC % Platelet Estimate % Immature Plt Fraction Hypochromasia Anisocytosis Ovalocytes Schistocytes Crossmatch See Detail 08/01/24 08/01/24 04:46 08:05 WBC 8.2 RBC 2.98 L Hgb 6.8 L* 7.3 L Hct 23.8 L 25.8 L MCV 79.9 L MCH 22.8 L MCHC 28.6 L RDW 17.4 H Plt Count 146 L MPV 12.7 H Immature Gran % (Auto) 0.9 H Neut % (Auto) 79.2 H Lymph % (Auto) 12.6 L [place] % (Auto) 6.7 Eos % (Auto) 0.4 Baso % (Auto) 0.2 Lymph # (Auto) 1.03 [place] # (Auto) 0.6 Eos # (Auto) 0.0 Baso # (Auto) 0.0 Abs Immat Gran (auto) 0.07 H Absolute Neuts (auto) 6.5 Absolute Nucleated RBC 0.020 H Nucleated RBC % 0.2 Platelet Estimate Adequate % Immature Plt Fraction 9.6 Hypochromasia 1+ Anisocytosis 1+ Ovalocytes 1+ Schistocytes None seen Crossmatch OB - PN A/P Plan day: 1 Comments: Post Op LTCS - no problems, routine recovery Time Spent With Patient Time: Total time spent is greater than 50% in coordination of care (as documented) at patient's floor/unit and/or counseling patient: Exam Const: General: cooperative, healthy appearing, comfortable and no acute distress Resp: Auscultation: no crackles, no rales, no rhonchi and no wheezes Cardio: Rhythm: regular rhythm Heart sounds: no click and no murmurs GI: Inspection: non-distended Auscultation: normal bowel sounds Extrem: General: normal to inspection, no pedal edema and no calf tenderness
--- NOTE | 2024-08-01 10:08 | WPDANLDNPN2 ---
Anes-Prog Note L&D-Neuraxial Date/Time: 08/01/24 10:08 Neuraxial medications: intrathecal PF morphine Opiod-related complaints: none Patient feedback: Patient satisfied with post-operative pain management.
--- NOTE | 2024-08-01 10:08 | WPDANLDPN2 ---
Anes-Prog Note L&D Date/Time: 08/01/24 10:08 Comfortable throughout: section Neuraxial method: spinal Epidural/Spinal procedure site: clean & non-tender Neuro status: Neuro function grossly intact. Cardiovascular status: normal Respiratory status: normal Airway patency: baseline Mental status: baseline Post-Op hydration status: normal Vital Signs: Last Vital Signs Temp 37.3 C 08/01/24 07:15 Pulse 94 08/01/24 07:15 Resp 18 08/01/24 07:15 BP 147/85 H 08/01/24 07:15 Pulse Ox 100 08/01/24 07:15 O2 Del Method Room Air 08/01/24 07:15 Pain score (VAS): 0 I/O: Intake & Output 07/31/24 08/01/24 08/01/24 23:59 07:59 15:59 Intake Total 1000 Output Total 900 1200 Balance 100 -1200 Post-procedural complaints: none Patient feedback: Patient satisfied with anesthetic care.
[2024-08-01] MEDS: HYDROcodone/acetaminophen (*CRX) 10-325 MG TABLET 1 TAB PO ×2 (11:16→16:55)
[2024-08-01] MEDS: IBUPROFEN 600 MG TABLET PO ×2 (14:15→20:54)
[2024-08-01 20:00] VITALS: BP 131/69; PULSE 107; RESP 16; TEMP 37.1; O2SAT 97
[2024-08-02] MEDS: IBUPROFEN 600 MG TABLET PO ×2 (02:44→08:11)
[2024-08-02] MEDS: ACETAMINOPHEN 325 MG TABLET 650 MG PO ×2 (02:44→08:11)
[2024-08-02] MEDS: SIMETHICONE 80 MG TAB.CHEW PO ×2 (04:32→08:11)
[2024-08-02] MEDS: HYDROcodone/acetaminophen (*CRX) 5-325 MG TABLET 1 TAB PO (04:33)
[2024-08-02 08:10] VITALS: BP 120/69; PULSE 77; RESP 16; TEMP 37.1
[2024-08-02] MEDS: DOCUSATE SODIUM 100 MG CAPSULE PO (08:11)
[2024-08-02] MEDS: POLYSACCHARIDE IRON COMPLEX 150 MG CAPSULE PO (08:11)
--- NOTE | 2024-08-02 11:42 | P.PNOB_ITS ---
OB - PN: Subj Subjective Date/time seen: 08/02/24 11:42 Patient comments: no complaints, pain well controlled, incisional pain, tolerating diet and flatus present OB - PN: Obj Data Labs 08/01/24 08:05 OB - PN A/P Plan day: 2 Plan: routine care Comments: POD#2 LTCS - no problems, Time Spent With Patient Time: Total time spent is greater than 50% in coordination of care (as documented) at patient's floor/unit and/or counseling patient: Exam 2 Const: General: comfortable, no acute distress and alert Resp: Effort & Inspection: normal respiratory effort Auscultation: no crackles, no rales and no rhonchi Cardio: Rate: regular rate Heart sounds: no click, no murmurs and no rubs GI: Inspection: non-distended Auscultation: normal bowel sounds Other: Incision - CDI Extrem: General: normal to inspection, no pedal edema and no calf tenderness
--- NOTE | 2024-08-02 11:43 | P.DS_ITS ---
DS: Admitting Diagnosis Discharge Date August 02, 2024 Admitting Diagnosis term , previous DS: Discharge Diagnosis Discharge Diagnosis (1) Delivery by elective section: Code(s): O82 - Encounter for delivery without indication Status: Acute OB - DS: Summary OB Procedures : None OB Procedures Intrapartum: OB Procedures: : None Peripartum Data Procedures: Procedures Operation Date: 07/31/24 07:30 Actual Procedure Side Surgeon p Section Andrea Machado MD Time Spent with Patient Time attestation: Total time spent providing and/or coordinating discharge services: Discharge Plan Discharge Discharging Clinician: Andrea Machado Patient Disposition: Home, Self-Care Activity: pelvic rest Diet: regular Discharge Instructions: Education: Mom and Baby Guide Given to: Mother Follow-Up: Call your delivering provider's office for an appointment to be seen in: call and make an appointment Mom and baby should come to the [facility] for the follow-up appointment. Appointment Date/Time: August 04, 2024 at 11:00 am What to expect at your follow-up visit: Blood Pressure Check Physical Assessment Call [phone] if you are unable to keep your appointment time. BREAST CARE: * Wear a snug supportive bra. * For engorgement discomfort: Bottle Feeding: * May apply ice packs ABDOMINAL INCISION: (if applicable) * Allow incision to air dry * Do NOT use lotions for powders on your incision * When showering, allow soap and water to run over the incision, but do not wash incision EPISIOTOMY/PERINEAL CARE: * Until bleeding stops, use your madelyn bottle after urinating * Change your pad frequently throughout the day * You may take sitz baths several times a day (fill your bathtub with warm water and soak for 20 minutes.) Do NOT bathe in the water * No tub baths until seen by your physician - You may shower ACTIVITY: * Rest as much as possible. * Do not exercise or lift anything heavier than your baby (such as laundry or other children.) * Avoid stairs or driving as much as possible. * Do not put anything into the vagina. No douching, tampons, or sexual activity until seen by physician. NOTIFY PHYSICIAN IF YOU HAVE ANY QUESTIONS OR IF ANY OF THE FOLLOWING SYMPTOMS OCCUR: * If your episiotomy or incision becomes red, swollen, or more painful than what you have experienced in the hospital. * If your vaginal bleeding becomes foul smelling. * If your vaginal bleeding becomes more heavy than a period or if your bleeding changes from pink to bright red. However, you may pass an occasional walnut- sized clot once or twice for the first week . * If you experience a sharp, shooting pain in you calves. * If you discover a hard, reddened area on your breast or if you experience flu- like symptoms. DIET: * Eat regular, well-balanced meals. * Drink plenty of fluids daily. If , drink to thirst. Patient Instructions: Antibiotic Form Patient Language: Estonian Stand Alone Forms: General Discharge Information Follow-up/Referrals: Andrea Machado MD [Physician] - Discharge Medications: New hydrocodone-acetaminophen 5-325 mg tablet 1 - 2 tablet PO Q6H PRN (Reason: pain) Qty: 25 0RF Continued Gummies 400 mcg-35 mg- 25 mg-5 mg Tablet,Chewable 1 tablet PO DAILY nitrofurantoin monohyd/m-cryst [Macrobid] 100 mg capsule 100 mg PO Q12H 7 Days Qty: 14 0RF Rx Instructions: must administer with a meal/food Date of admission: 07/31/24 05:34 Primary Care Provider: UNKNOWN,DOCTOR Admitting Provider: Andrea Machado Attending physician on admission: Andrea Machado Condition: Stable
[2024-08-04 11:24] VITALS: BP 143/79; PULSE 90; RESP 18; TEMP 37.4; O2SAT 100
== END 2024-08-02 12:33 | disposition home or self-care (01) | DRG 540 ==
LOC: ANHLDR 05:37 → ANHOB2 11:53
PROVIDERS: Admitting Provider Obstetrics & Gynecology; Visit Provider Obstetrics & Gynecology
PROC: 10D00Z1 Extraction of Products of Conception, Low, Open Approach (ICD-10-PCS; CPT 59514; principal; 2024-07-31 07:30)
DX: O34.211 Maternal care for low transverse scar from previous cesarean delivery (principal); Z37.0 Single live birth; Z3A.39 39 weeks gestation of pregnancy
CPT/HCPCS: 36415; 85014; 85018; 85025; 85055; 86923; A9270; J1200; J1885; J2270; J2274; J2405; J2590; J7120